=== PATIENT | male | born 1960 | race Caucasian/White ===

== ENCOUNTER 2018-04-25 04:16 | Observation (INO) ==
[2018-04-25] MEDS ORDERED: Ipratropium/Albuterol Neb 3 ML IH ONE (04:23)
--- NOTE | 2018-04-25 04:30 | Emergency Department Note ---
Disposition Clinical Impression: Acute exacerbation of chronic obstructive airways disease Disposition: Admitted As Inpatient Condition: Good Referrals: Mary Lou Rojo CNP [Primary Care Provider] - Forms: ED Satisfaction Letter General Adult HPI - General Chief complaint: ED Shortness of Breath/Dyspnea Stated complaint: SOB Time Seen by Provider: 04/25/18 04:17 Source: patient, family, EMS Mode of arrival: EMS Limitations: no limitations Nursing Notes Reviewed: Yes Vital Signs Reviewed: Yes - History of Present Illness HPI Narrative: 57-year-old male with significant past medical history of hypertension and COPD presenting to the emergency department chief complaint of shortness of breath. According to patient and son-in-law at bedside throughout the day patient has had increased shortness of breath but this evening it got acutely worse. Patient is supposed be wearing 2 L of oxygen at night but is not able to [place]. Patient had severe shortness of breath and audible wheezing so son-in-law called EMS. When EMS arrived oxygen saturation was in the mid 70s. They placed him on oxygen and provided him with a nebulizer treatment and Solu-Medrol. After that oxygen saturation remained in the mid 90s. Patient denies any chest pain, dizziness or headache. Denies any recent fevers. Pain Scale: 0 - Related Data Allergies Allergy/AdvReac Type Severity Reaction Status Date / Time No Known Allergies Allergy Verified 04/25/18 04:24 All systems ED: reviewed and negative except as stated. Constitutional: Denies: fever, chills Eyes: Reports: as per HPI ENT ED: Reports: as per HPI Cardiovascular: Reports: dyspnea on exertion. Denies: palpitations Respiratory: Reports: cough, dyspnea, wheezes Gastrointestinal: Denies: abdominal pain, nausea, vomiting Genitourinary: Reports: as per HPI Musculoskeletal: Reports: as per HPI Integumentary: Reports: as per HPI Neurological: Denies: weakness, numbness, paresthesias Psychiatric: Reports: as per HPI Endocrine: Reports: as per HPI Hematological/Lymphatic: Reports: as per HPI Allergic/Immunologic: Reports: as per HPI Past Medical History - Past Medical History Attestation: Yes The following information was validated with the patient. Medical history: Reports: COPD, myocardial infarction - Social History Smoking Status: Current every day smoker Alcohol use: Reports: rarely Drug use: Reports: none Physical Exam - General Limitations: no limitations General appearance: alert, in distress (Moderate respiratory) - Head Head exam: atraumatic, normocephalic, normal inspection - Eye Eye exam: Present: normal appearance. Absent: scleral icterus, conjunctival injection - ENT ENT exam: mucous membranes dry - Neck Neck exam: Present: normal inspection, full ROM. Absent: tenderness, meningismus - Chest Chest inspection: Present: normal inspection, symmetric chest wall rise. Absent : tenderness, rash - Respiratory Respiratory exam: Present: other (Diffuse inspiratory and expiratory wheezing, decreased breath sounds throughout) - Cardiovascular Cardiovascular exam: Present: normal rhythm, tachycardia, normal heart sounds - Abdominal Exam Abdominal exam: Present: soft, Non-Tender. Absent: distention, guarding, rebound - Extremities Exam Extremities exam: Present: normal inspection, full ROM - Neurological Exam Neurological exam: Present: alert, oriented X3 - Psychiatric Psychiatric exam: Present: normal affect, normal mood - Skin Skin exam: Present: warm, intact Course Course Narrative: 57-year-old male presenting with shortness of breath. History of COPD. In the room audible wheezing can be heard. Oxygen saturation stable at 96% on nasal cannula. We will obtain basic laboratory analysis, chest x-ray and provide him with 3 [id number] DuoNeb's. Patient already received Solu-Medrol by EMS. Patient is alert and oriented 3 in the room. Mildly tachycardic in the low 100s but otherwise vital signs stable. Disposition will be admission the pending results. Patient agrees with this plan. - Reevaluation(s) Reevaluation #1: Patient's laboratory analysis benign. Chest x-ray within normal limits. Due to patient's severe hypoxia before arrival we will plan to admit the patient for COPD exacerbation. Patient has received multiple DuoNebs along with steroids per EMS. I spoke with the hospitalist injection machine operator Dr. Johnson who agrees to accept the patient at this time. Patient is alert and oriented 3 in the room with stable vital signs. Patient agrees with this plan. Vital Signs Temperature 98.0 F 04/25/18 04:21 Pulse Rate 113 04/25/18 04:21 Respiratory Rate 24 04/25/18 04:21 Blood Pressure 163/121 04/25/18 04:21 O2 Sat by Pulse Oximetry 96 04/25/18 04:21 Temperature 98.0 F 04/25/18 04:21 Pulse Rate 97 04/25/18 05:19 Respiratory Rate 20 04/25/18 05:19 Blood Pressure 130/114 04/25/18 05:19 O2 Sat by Pulse Oximetry 100 04/25/18 05:19 Oxygen Delivery Oxygen Delivery Aerosol Mask Medical Decision Making - Lab Data Result diagrams: 04/25/18 04:23 04/25/18 04:23 Lab Results 04/25/18 04/25/18 04/25/18 Range/Units 04:23 04:23 04:23 WBC 9.4 (4.3-11.1) K/mcL RBC 4.35 (4.19-5.50) M/mcL Hgb 13.9 (12.9-16.9) g/dL Hct 41.7 (37.5-50.1) % MCV 95.9 (83.0-100.0) fL MCH 32.0 (28.0-33.3) pg MCHC 33.3 (31.6-35.5) g/dL RDW 13.9 (11.5-14.5) % Plt Count 210 (140-400) K/mcL MPV 9.6 (9.4-12.4) fL Immature Gran % 0.3 (0-4) % Seg Neutrophils % 70.2 % Lymphocytes % 22.2 % Monocytes % 5.5 % Eosinophils % 1.4 % Basophils % 0.4 % Neutrophils # 6.6 (1.6-8.9) K/mcL Lymphocytes # 2.1 (0.6-4.6) K/mcL Monocytes # 0.5 (0.0-1.3) K/mcL Eosinophils # 0.1 (0.0-0.6) K/mcL Basophils # 0.0 (0.0-0.2) K/mcL Sodium 142 (136-145) mEq/L Potassium 3.9 (3.5-5.1) mEq/L Chloride 108 H (98-107) mEq/L Carbon Dioxide 29 (23-29) mEq/L BUN 14 (6-20) mg/dL Creatinine 0.67 L (0.70-1.30) mg/dL Est GFR ( Amer) > 60 (> 60) Est GFR (Non-Af Amer) > 60 (> 60) BUN/Creatinine Ratio 21 (6-26) Glucose 124 H (70-105) mg/dL Calculated Osmolality 296 (280-300) Calcium 8.7 (8.6-10.3) mg/dL Troponin I < 0.03 (< 0.04) ng/mL B-Natriuretic Peptide 39 (Less than 100) pg/mL - EKG Data EKG #1 EKG attestation: Yes I reviewed and interpreted this EKG. EKG results narrative: Sinus rhythm. 91 bpm. UT interval 138, QRS 88, QTC 426. No signs of acute ST segment elevation or ischemia
--- NOTE | 2018-04-25 05:27 | Emergency Department Note ---
Disposition Clinical Impression: Acute exacerbation of chronic obstructive airways disease Disposition: Admitted As Inpatient Condition: Good Referrals: Mary Lou Rojo CNP [Primary Care Provider] - Forms: ED Satisfaction Letter General Adult HPI - General Chief complaint: ED Shortness of Breath/Dyspnea Stated complaint: SOB Time Seen by Provider: 04/25/18 04:17 Source: patient, family, EMS Mode of arrival: EMS Limitations: no limitations Nursing Notes Reviewed: Yes Vital Signs Reviewed: Yes - History of Present Illness Pain Scale: 0 - Related Data Allergies Allergy/AdvReac Type Severity Reaction Status Date / Time No Known Allergies Allergy Verified 04/25/18 04:24 Constitutional: Denies: fever, chills Eyes: Reports: as per HPI ENT ED: Reports: as per HPI Cardiovascular: Reports: dyspnea on exertion. Denies: palpitations Respiratory: Reports: cough, dyspnea, wheezes Gastrointestinal: Denies: abdominal pain, nausea, vomiting Genitourinary: Reports: as per HPI Musculoskeletal: Reports: as per HPI Integumentary: Reports: as per HPI Neurological: Denies: weakness, numbness, paresthesias Psychiatric: Reports: as per HPI Endocrine: Reports: as per HPI Hematological/Lymphatic: Reports: as per HPI Allergic/Immunologic: Reports: as per HPI Past Medical History - Past Medical History Medical history: Reports: COPD, myocardial infarction - Social History Smoking Status: Current every day smoker Alcohol use: Reports: rarely Drug use: Reports: none Physical Exam - General Limitations: no limitations General appearance: alert, in distress (Moderate respiratory) Course Vital Signs Temperature 98.0 F 04/25/18 04:21 Pulse Rate 113 04/25/18 04:21 Respiratory Rate 24 04/25/18 04:21 Blood Pressure 163/121 04/25/18 04:21 O2 Sat by Pulse Oximetry 96 04/25/18 04:21 Temperature 98.0 F 04/25/18 04:21 Pulse Rate 97 04/25/18 05:19 Respiratory Rate 20 04/25/18 05:19 Blood Pressure 130/114 04/25/18 05:19 O2 Sat by Pulse Oximetry 100 04/25/18 05:19 Oxygen Delivery Oxygen Delivery Aerosol Mask Medical Decision Making - Lab Data Lab results reviewed: Yes I reviewed the patient's lab results. Result diagrams: 04/25/18 04:23 04/25/18 04:23 Lab Results 04/25/18 04/25/18 04/25/18 Range/Units 04:23 04:23 04:23 WBC 9.4 (4.3-11.1) K/mcL RBC 4.35 (4.19-5.50) M/mcL Hgb 13.9 (12.9-16.9) g/dL Hct 41.7 (37.5-50.1) % MCV 95.9 (83.0-100.0) fL MCH 32.0 (28.0-33.3) pg MCHC 33.3 (31.6-35.5) g/dL RDW 13.9 (11.5-14.5) % Plt Count 210 (140-400) K/mcL MPV 9.6 (9.4-12.4) fL Immature Gran % 0.3 (0-4) % Seg Neutrophils % 70.2 % Lymphocytes % 22.2 % Monocytes % 5.5 % Eosinophils % 1.4 % Basophils % 0.4 % Neutrophils # 6.6 (1.6-8.9) K/mcL Lymphocytes # 2.1 (0.6-4.6) K/mcL Monocytes # 0.5 (0.0-1.3) K/mcL Eosinophils # 0.1 (0.0-0.6) K/mcL Basophils # 0.0 (0.0-0.2) K/mcL Sodium 142 (136-145) mEq/L Potassium 3.9 (3.5-5.1) mEq/L Chloride 108 H (98-107) mEq/L Carbon Dioxide 29 (23-29) mEq/L BUN 14 (6-20) mg/dL Creatinine 0.67 L (0.70-1.30) mg/dL Est GFR ( Amer) > 60 (> 60) Est GFR (Non-Af Amer) > 60 (> 60) BUN/Creatinine Ratio 21 (6-26) Glucose 124 H (70-105) mg/dL Calculated Osmolality 296 (280-300) Calcium 8.7 (8.6-10.3) mg/dL Troponin I < 0.03 (< 0.04) ng/mL B-Natriuretic Peptide 39 (Less than 100) pg/mL - Radiology Data Radiology results reviewed: Yes I reviewed the patient's radiology results. Chest X-Ray 04/25/18 04:23 IMPRESSION: No acute process. COPD D/ / Fab Hill MD / Fab Hill MD Interpreting Provider: Fab Hill MD Attestation Statement - Attestation Attestation: I, Armando Arreaga MD, personally evaluated this patient and discussed their management with the resident physician. I reviewed the resident's note and agree with the documented findings, medical decision making, and plan of care. 57-year-old male with history of COPD presents to the emergency department by EMS with a complaint of increased shortness of breath and wheezing. Patient has been staying at the [facility] in a pop-up camper. He normally uses oxygen at night at home but [place] had [place]. He reports that about 3 AM yesterday morning he had an episode of wheezing and difficulty breathing which gradually resolved and he did better throughout the day but then tonight again about 3 AM he woke up with severe wheezing and difficulty breathing which was worse than the episode 24 hours ago. He complains of increased cough with white sputum with occasional brownish tint. No fever. No chest pain. EMS reports that on their arrival the patient's oxygen saturation was in the mid 70s. He received IV Solu-Medrol and albuterol nebulizer treatment in route to the hospital with significant improvement. On arrival here his oxygen saturation is in the mid to upper 90s on oxygen by nasal cannula. On examination patient is a thin cachectic male in mild respiratory distress. He is alert and oriented 3. There is no cyanosis or diaphoresis. He is moderately tachypneic. Breath sounds are markedly decreased bilaterally with a few scattered inspiratory and expiratory wheezes bilaterally. Heart regular rate and rhythm. Abdomen soft and nontender with normal bowel sounds. No pedal edema. Chest x-ray shows COPD with no acute abnormality. EKG shows a normal sinus rhythm with ventricular rate of 91. No acute ST segment elevation or depression. No arrhythmia or ectopy. Labs reviewed. The hospitalist, Dr. Johnson, was consulted and accepted admission of the patient.
[2018-04-25 05:32] LABS: Basophils % 0.4 %; Eosinophils # 0.1 K/mcL (0.0-0.6); Eosinophils % 1.4 %; Hematocrit 41.7 % (37.5-50.1); Hemoglobin 13.9 g/dL (12.9-16.9); Immature Granulocytes % 0.3 % (0-4); Lymphocytes # 2.1 K/mcL (0.6-4.6); Lymphocytes % 22.2 %; Mean Corpuscular HGB Conc 33.3 g/dL (31.6-35.5); Mean Corpuscular Volume 95.9 fL (83.0-100.0); Mean Platelet Volume 9.6 fL (9.4-12.4); Monocytes # 0.5 K/mcL (0.0-1.3); Monocytes % 5.5 %; Neutrophils # 6.6 K/mcL (1.6-8.9); Platelet Count 210 K/mcL (140-400); Red Blood Count 4.35 M/mcL (4.19-5.50); Red Cell Distribution Width 13.9 % (11.5-14.5); Segmented Neutrophils % 70.2 %
[2018-04-25 05:51] LABS: Troponin I < 0.03 ng/mL (< 0.04)
[2018-04-25 05:52] LABS: BUN/Creatinine Ratio 21 (6-26); Blood Urea Nitrogen 14 mg/dL (6-20); Calcium 8.7 mg/dL (8.6-10.3); Carbon Dioxide 29 mEq/L (23-29); Chloride 108 mEq/L (98-107); Glucose 124 mg/dL (70-105); Osmolality,Calculated 296 (280-300); Potassium 3.9 mEq/L (3.5-5.1); Sodium 142 mEq/L (136-145); eGFR For Non-African Americans > 60 (> 60)
[2018-04-25] MEDS ORDERED: Nicotine 14 MG PATCH.TD24 TD PRN (07:36)
[2018-04-25] MEDS ORDERED: Ipratropium Neb 0.5 MG NEBULIZER IH SCH (08:00)
--- NOTE | 2018-04-25 08:21 | Internal Med History&Physical ---
Date of Encounter: 04/25/18 Time of Encounter: 08:13 Internal Medicine - H&P: HPI History of present illness: Mr. Hernandez is a 57 year old male with history of chronic respiratory failure on 2L O2 at night, COPD, tobacco abuse, history of [place] presented for acute onset of shortness of breath, wheezing, and dry cough. Patient denies chest pain, sputum, n/v, fevers/chills, edema, orthopnea. COPD triggers include hot/cold weather, and states he has over exposed to hot weather recently, [place]. No sick contacts. He states he is usually on 2 L O2 at night but was not wearing it. He is having more frequent episodes of shortness of breath that usually resolved with albuterol inhaler but now is not. He takes Spiriva and Symibicort. In the ED, a CBC and BMP were unremarkable, a chest x-ray showed no acute process. An EKG was done that had no ST or T wave changes. He was given patient was given IV Solu-Medrol, and Duo Neb inhaler. He currently is in no acute distress and feels relief. Past Med Surg Social Fam HX - Past Medical History Medical history: COPD, kidney stones, myocardial infarction - Past Surgical History Surgical History: ureteral stent Additional surgical history: kidney stent,l heart cath - Social History Smoking Status: Current every day smoker Packs per day: 1 1/2 Smokeless Tobacco Status: No Alcohol use: rarely Drug use: none Internal Medicine - H&P: Meds 3 Allergy/AdvReac Type Severity Reaction Status Date / Time No Known Allergies Allergy Verified 04/25/18 04:24 All Systems PM: A 10-system review of systems was performed and is negative for pertinent findings except as documented above in the HPI. - Constitutional Constitutional: no anorexia, no chills, no excessive sweating, no fatigue, no fever(s), no lethargy, no weakness - EENT Eyes: no change in vision, no discharge, no pain, no photophobia - Cardiovascular Cardiovascular ROS IM: no chest pain, no diaphoresis, no lightheadedness, no palpitations, no syncope - Respiratory Respiratory: cough (dry cough, one episode), dyspnea, wheezing - Gastrointestinal Gastrointestinal: no abdominal pain, no diarrhea, no hematemesis, no hematochezia, no melena, no nausea, no vomiting - Musculoskeletal Musculoskeletal ROS IM: no numbness, no tingling - Integumentary Integumentary IM: no rash, no unusual bruising - Neurological Neurological ROS: no confusion, no convulsions, no focal weakness, no numbness, no tingling, no tremor(s) - Constitutional Vitals: Temp Pulse Resp BP Pulse Ox 98.2 F 89 19 124/74 95 04/25/18 06:47 04/25/18 06:47 04/25/18 06:47 04/25/18 06:47 04/25/18 06:47 General appearance: Present: A&O X 3 Exam: NAD - Head Head exam: Present: atraumatic, normocephalic - Eye Eye exam: Present: PERRL, conjuntiva pink, sclera anicteric Pupils: Present: PERRL - Neck Neck exam general surgery: Present: supple, trachea midline. Absent: lymphadenopathy - Respiratory Respiratory exam: Present: decreased breath sounds. Absent: accessory muscle use, rales, rhonchi, wheezes - Cardiovascular Cardiovascular exam: Present: RRR, +S1, +S2. Absent: diastolic murmur, gallop, rubs, systolic murmur - GI/Abdominal GI/Abdominal exam: Present: normal bowel sounds, soft, no peritoneal signs. Absent: distended, tenderness - Extremities Exam Extremities exam: Present: warm, radial pulses palpable and symmetrical. Absent : calf tenderness, cyanotic, pedal edema - Neurological Exam Neurological exam: Present: CN II-XII intact, oriented X3, no focal deficits. Absent: pronater drift, facial droop, speech deficit - Skin Skin exam: Present: dry, intact Internal Med - H&P Results - Labs CBC & Chem 7: 04/25/18 04:23 04/25/18 04:23 - Assessment and plan (1) Acute exacerbation of chronic obstructive airways disease Current Visit: Yes Status: Acute Assessment and plan: Patient has exposure to hot and humid weather triggering COPD. Also has not been using home O2 as he usually does. Once resumed on O2 and given breathing treaments with IV steroids, breathing improved. Now currently saturating 100 on room air. Does not appear infection related, not having fevers, leukocytosis or any sputum production. Continue Solu Medrol and Duo Nebs scheduled and prn. Resume home medications Spiriva and Symbicort. (2) History of [place] (myocardial infarction) Current Visit: Yes Status: Acute Assessment and plan: resume home medications. (3) Tobacco abuse Current Visit: Yes Status: Acute Assessment and plan: Discussed with patient that tobacco is main contributor to COPD and also exacerbation. He states he does not want to smoke anymore. He is okay with starting nicotine patch. (4) DVT prophylaxis Current Visit: Yes Status: Acute Assessment and plan: Heparin SQ - Time Spent With Patient Total time spent is greater than 50% in coordination of care (as documented) at patient's floor/unit and/or counseling patient:
[2018-04-25] MEDS ORDERED: Nitroglycerin 0.4 MG TAB.SUBL SL PRN (08:49)
[2018-04-25] MEDS: Nicotine 21 MG PATCH.TD24 TD SCH (10:25)
[2018-04-25] MEDS: Baclofen 10 MG TABLET PO SCH ×2 (10:25→22:31)
[2018-04-25] MEDS: Isosorbide MONOnitrate (24 HR) 60 MG TAB.ER.24H PO SCH (10:26)
[2018-04-25] MEDS: Primidone 50 MG TABLET PO SCH ×2 (10:26→22:33)
[2018-04-25] MEDS: Metoprolol XL (24 HR) Succ 25 MG TAB.ER.24H PO SCH (10:26)
[2018-04-25] MEDS: Aspirin Enteric Coated 81 MG Tablet PO SCH (10:26)
[2018-04-25] MEDS: MethylPREDNISolone 40 MG/ML VIAL IVP SCH ×2 (10:27→18:24)
[2018-04-25] MEDS: Budesonide/Formoterol 160/4.5 1 PUFF INH IH SCH ×2 (12:00→19:47)
[2018-04-25] MEDS: Tiotropium 18 MCG inhalation IH SCH (12:01)
[2018-04-25] MEDS: *HR* Heparin 5,000 UNIT/ML VIAL SQ SCH (18:23)
[2018-04-25] MEDS ORDERED: NON-FORMULARY MEDICATION 1 EACH EACH (Oxygen [Oxygen] 2 L) NS SCH (21:00)
[2018-04-26] MEDS: MethylPREDNISolone 40 MG/ML VIAL IVP SCH ×2 (01:10→05:59)
[2018-04-26 05:46] LABS: Hematocrit 40.7 % (37.5-50.1); Hemoglobin 13.9 g/dL (12.9-16.9); Mean Corpuscular HGB Conc 34.2 g/dL (31.6-35.5); Mean Corpuscular Hemoglobin 32.6 pg (28.0-33.3); Mean Corpuscular Volume 95.5 fL (83.0-100.0); Mean Platelet Volume 9.8 fL (9.4-12.4); Platelet Count 222 K/mcL (140-400); Red Blood Count 4.26 M/mcL (4.19-5.50); Red Cell Distribution Width 13.9 % (11.5-14.5)
[2018-04-26] MEDS ORDERED: *HR* Heparin 5,000 UNIT/ML VIAL ONE (05:49)
[2018-04-26 06:48] VITALS: BP 124/75
[2018-04-26] MEDS ORDERED: Tiotropium 18 MCG inhalation IH SCH (07:00)
[2018-04-26] MEDS: *HR* Heparin 5,000 UNIT/ML VIAL SQ SCH (07:49)
[2018-04-26] MEDS: Primidone 50 MG TABLET PO SCH (07:54)
[2018-04-26] MEDS: Nicotine 21 MG PATCH.TD24 TD SCH (07:54)
[2018-04-26] MEDS: Aspirin Enteric Coated 81 MG Tablet PO SCH (07:54)
[2018-04-26] MEDS: Isosorbide MONOnitrate (24 HR) 60 MG TAB.ER.24H PO SCH (07:55)
[2018-04-26] MEDS: Metoprolol XL (24 HR) Succ 25 MG TAB.ER.24H PO SCH (07:55)
[2018-04-26] MEDS: Baclofen 10 MG TABLET PO SCH (07:55)
[2018-04-26] MEDS: Budesonide/Formoterol 160/4.5 1 PUFF INH IH SCH (08:57)
[2018-04-26] MEDS: Tiotropium 18 MCG inhalation IH SCH (08:58)
[2018-04-26] MEDS ORDERED: Roflumilast [Daliresp] 500 MCG PO SCH (09:00)
--- NOTE | 2018-04-26 09:46 | Discharge Summary ---
Date of Encounter: 04/26/18 Time of Encounter: 09:36 - Discharge Diagnosis (1) Acute exacerbation of chronic obstructive airways disease Priority: Primary Status: Resolved (2) History of [place] (myocardial infarction) Priority: Secondary Status: Chronic (3) Tobacco abuse Priority: Secondary Status: Chronic (4) DVT prophylaxis Priority: Secondary Status: Acute Hospital course: Mr. Hernandez is a 57 year old male Discharge discussed with: patient Time spent discussing smoking cessation with patient: 3 to 10 minutes - Time Spent with Patient Total time spent providing and/or coordinating discharge services: Mr. Hernandez is a 57 year old male with history of chronic respiratory failure on 2L O2 at night, COPD, tobacco abuse, history of [place] presented for acute onset of shortness of breath, wheezing, and dry cough. Patient denies chest pain, sputum, n/v, fevers/chills, edema, orthopnea. COPD triggers include hot/cold weather, and states he has over exposed to hot weather recently, [place]. No sick contacts. He states he is usually on 2 L O2 at night but was not wearing it. He is having more frequent episodes of shortness of breath that usually resolved with albuterol inhaler but now is not. He takes Spiriva and Symibicort. In the ED, a CBC and BMP were unremarkable, a chest x-ray showed no acute process. An EKG was done that had no ST or T wave changes. He was given patient was given IV Solu-Medrol, and Duo Neb inhaler. He currently is in no acute distress and feels relief. Patient received IV steroids, CXR was negative for infection, ON improved, he is on ,2 L NC, sat 98%. patient is discharged on stable condition. He has no wheezing, but re duced BS. discharged on Augmentin and taper prednisone. smoking cessation discussed at discharge Less than 30 minutes - Discharge Medications Prescriptions: Amoxicillin/Clavulanate [Augmentin] 875 mg PO BIDWM 7 Days #14 tablet predniSONE [PredniSONE] 10 mg PO DAILY 12 Days #30 tablet Home Medications: Albuterol Neb [Proventil Neb] 2.5 mg IH Q6H PRN 04/25/18 [History] Albuterol Sulfate [Proair Hfa] 1 puff IH Q4H PRN 04/25/18 [History] Aspirin [Lo-Dose Aspirin EC] 81 mg PO DAILY 04/25/18 [History] Atorvastatin Calcium [Lipitor] 20 mg PO HS 04/25/18 [History] Baclofen 20 mg PO BID 04/25/18 [History] Budesonide/Formoterol 160/4.5 [Symbicort 160/4.5] 2 puff IH BIDR 04/25/18 [ History] Cilostazol 50 mg PO BID 04/25/18 [History] Escitalopram [Lexapro] 10 mg PO DAILY 04/25/18 [History] GuaiFENesin ER [Mucinex] 600 mg PO BID 04/25/18 [History] Isosorbide MONOnitrate [Isosorbide Mononitrate ER] 120 mg PO DAILY 04/25/18 [ History] Lisinopril 2.5 mg PO DAILY 04/25/18 [History] Metoprolol Succinate [Toprol Xl] 25 mg PO DAILY 04/25/18 [History] Nicotine Patch [Nicoderm] 21 mg TD DAILY 04/25/18 [History] Nitroglycerin [Nitrostat] 0.4 mg SL Q5M PRN 04/25/18 [History] Omeprazole [PriLOSEC] 40 mg PO DAILY 04/25/18 [History] Oxygen 2 l NS HS 04/25/18 [History] Primidone [Mysoline] 50 mg PO BID 04/25/18 [History] Roflumilast [Daliresp] 500 mcg PO DAILY 04/25/18 [History] Tamsulosin [Flomax] 0.4 mg PO DAILY 04/25/18 [History] Tiotropium [Spiriva] 18 mcg IH 0700 04/25/18 [History] hydrOXYzine HCl [Hydroxyzine HCl] 25 mg PO HS PRN 04/25/18 [History] Amoxicillin/Clavulanate [Augmentin] 875 mg PO BIDWM 7 Days #14 tablet 04/26/18 [ Rx] predniSONE [PredniSONE] 10 mg PO DAILY 12 Days #30 tablet 04/26/18 [Rx] Allergies/Adverse Reactions: 3 Allergy/AdvReac Type Severity Reaction Status Date / Time No Known Allergies Allergy Verified 04/25/18 10:21 Date of admission: 04/25/18 06:11 Primary care physician: Mary Lou Rojo CNP Consults: 04/25/18 07:05 Consult to Nutrition [CONS] Routine Comment: Consulting Provider: NUTRITION Reason for Dietary Consult: MST Score Consult to [employer] [CONS] Routine Reason for SW Consult: HAS HOME O2-MARLENI 04/25/18 07:36 Consult to Nurse Navigator [CONS] Routine Comment: - Constitutional Vitals: Temp Pulse Resp BP Pulse Ox 97.4 F L 64 18 124/75 98 04/26/18 06:47 04/26/18 06:47 04/26/18 09:00 04/26/18 06:47 04/26/18 09:00 General appearance: Present: A&O X 3 Exam: CONSTITUTIONAL: patient appears as an age appropriate female in no acute distress. EYES Clear sclerae, bilateral pupils are equal, reactive to light. EMOI. RESPIRATORY: No accessory muscle use, bilateral reduced BS to auscultation, no wheezing, no crackles/rales. CARDIOVASCULAR: Regular heart rate, normal S1 and S2, no murmurs GASTROINTESTINAL: bowel sounds present, soft, no tenderness. MUSCULOSKELETAL: Joints in normal range of motion, no clubbing, no edema, no cyanosis. Bilateral peripheral pulses 2+. NEUROLOGIC: CN II to XII are grossly intact, no focal neurological deficit. - Patient Status Disposition: Home, Self-Care Condition: Good Functional capacity at discharge: independent ambulation Overall status at discharge: patient is back to baseline - Discharge Instructions Follow Up With: Mary Lou Rojo CNP [Primary Care Provider] - - Diet and Activity Diet: advance to your usual diet
--- NOTE | 2018-04-27 16:08 | Electrocardiograph Report ---
[place] [id number] Test Date: 2018-04-25 Pat Name: Nik Hernandez Department: EXAM2 Room: 2A23 Gender: M Electro Optical Engineer: : [id number] Requested By: Eli Perez Order Number: [id number] Reading MD: Aravind Vera Measurements Intervals [place] Rate: 91 P: 88 TX: 138 QRS: 96 QRSD: 88 T: 72 QT: 346 QTc: 426 Interpretive Statements Sinus rhythm Borderline right axis deviation Electronically Signed On 04-27-2018 16:06:27 EDT by Aravind Vera
== END 2018-04-26 10:35 | disposition home or self-care (01) ==
LOC: EMEROOARM 04:16 → 2ANU 04:16 → SUATTDRO 06:11 → 2ANU 06:24
PROVIDERS: ADMIT Family Medicine; ATTEND Hospitalist

== ENCOUNTER 2018-09-29 11:57 | Inpatient (IN) ==
[2018-09-29] MEDS ORDERED: Naloxone 0.4 MG/ML INJ IVP PRN (18:39)
[2018-09-29] MEDS ORDERED: Nitroglycerin 0.4 MG TAB.SUBL SL PRN (18:43)
[2018-09-29] MEDS ORDERED: Albuterol 2.5 MG/3 ML NEBULIZER IH PRN (18:48)
--- NOTE | 2018-09-29 18:58 | Internal Med History&Physical ---
Date of Encounter: 09/29/18 Time of Encounter: 18:10 Internal Medicine - H&P: HPI Chief complaint: Shortness of breath Admitted From: Hospital to Hospital Transfer Plans for Post Hospital Care: Home History of present illness: Mr. Hernandez is a 58 year old male with hx of COPD on home oxygen transferred from [facility] with respiratory failure. He is currently on bipap. Mr Hernandez has hx of COPD and smoking. He presented to [facility] on 09/28/18 with progressive dyspnea and cough productive of purulent sputum. No fever or chills. Did have flu shot this year. He also had been seen in the ED there on 09/27 and discharged home on steroids. He was admitted to [facility] on 09/28 with exac COPD. He was treated with nebulizers, oxygen, steroids. This AM he became more dyspneic. He stated he had 4 episodes of worsening dyspnea and was placed on bipap. Due the worsening of his symptoms and concern for respiratory failure, he was transferred to [place]. At this time he is comfortable on bipap. He is able to speak and denies CP. Denies abd pain or diarrhea. Past Med Surg Social Fam HX - Past Medical History Source: patient, old records reviewed, obtained from family Medical history: COPD, coronary artery disease, GERD, hypertension, kidney stones, myocardial infarction Additional medical history: BPH, Chronic hypoxic resp failure Psychiatric history: no psych history - Past Surgical History Surgical History: ureteral stent Additional surgical history: kidney stent,l heart cath - Social History Smoking Status: Current every day smoker Smokeless Tobacco Status: No Alcohol use: rarely Drug use: none - Additional Family History Additional family history: Pt states there is hx of HTN, CAD and COPD in family. Internal Medicine - H&P: Meds Albuterol Neb [Proventil Neb] 2.5 mg IH Q6H PRN 04/25/18 [History] Albuterol Sulfate [Proair Hfa] 1 puff IH Q4H PRN 04/25/18 [History] Aspirin [Lo-Dose Aspirin EC] 81 mg PO DAILY 04/25/18 [History] Atorvastatin Calcium [Lipitor] 20 mg PO HS 04/25/18 [History] Baclofen 20 mg PO BID 04/25/18 [History] Budesonide/Formoterol 160/4.5 [Symbicort 160/4.5] 2 puff IH BIDR 04/25/18 [History] Cilostazol 50 mg PO BID 04/25/18 [History] Escitalopram [Lexapro] 10 mg PO DAILY 04/25/18 [History] GuaiFENesin ER [Mucinex] 600 mg PO BID 04/25/18 [History] Isosorbide MONOnitrate [Isosorbide Mononitrate ER] 120 mg PO DAILY 04/25/18 [History] Lisinopril 2.5 mg PO DAILY 04/25/18 [History] Metoprolol Succinate [Toprol Xl] 25 mg PO DAILY 04/25/18 [History] Nicotine Patch [Nicoderm] 21 mg TD DAILY 04/25/18 [History] Nitroglycerin [Nitrostat] 0.4 mg SL Q5M PRN 04/25/18 [History] Omeprazole [PriLOSEC] 40 mg PO DAILY 04/25/18 [History] Oxygen 2 l NS HS 04/25/18 [History] Primidone [Mysoline] 50 mg PO BID 04/25/18 [History] Roflumilast [Daliresp] 500 mcg PO DAILY 04/25/18 [History] Tamsulosin [Flomax] 0.4 mg PO DAILY 04/25/18 [History] Tiotropium [Spiriva] 18 mcg IH 0700 04/25/18 [History] hydrOXYzine HCl [Hydroxyzine HCl] 25 mg PO HS PRN 04/25/18 [History] Amoxicillin/Clavulanate [Augmentin] 875 mg PO BIDWM 7 Days #14 tablet 04/26/18 [Rx] predniSONE [PredniSONE] 10 mg PO DAILY 12 Days #30 tablet 04/26/18 [Rx] Allergy/AdvReac Type Severity Reaction Status Date / Time No Known Allergies Allergy Verified 04/25/18 10:21 All Systems PM: A 10-system review of systems was performed and is negative for pertinent f indings except as documented above in the HPI. - Constitutional Constitutional: fatigue, malaise - EENT Eyes: no change in vision, no pain Ears: no decreased hearing Nose, mouth and throat: dry mouth, no mouth pain - Cardiovascular Cardiovascular ROS IM: dyspnea, dyspnea on exertion, no chest pain, no edema, no lightheadedness - Respiratory Respiratory: cough, dyspnea, dyspnea on exertion, wheezing, chest congestion, excessive phlegm production - Gastrointestinal Gastrointestinal: no abdominal pain, no melena - Genitourinary Genitourinary ROS male: no dysuria, no nocturia - Musculoskeletal Musculoskeletal ROS IM: myalgias, no stiffness - Neurological Neurological ROS: no confusion, no numbness - Endocrine Endocrine IM: fatigue, no excessive sweating - Hematologic/Lymphatic Hematologic/Lymphatic: no easy bleeding - Allergic/Immunologic Allergic/Immunologic: no itchy eyes, no wheezing - Constitutional General appearance: Present: A&O X 3 (Currently on bipap) Exam: See below - Head Head exam: Present: normocephalic - Eye Eye exam: Present: EOMI, conjuntiva pink - ENT ENT exam: Present: mucous membranes dry - Neck Neck exam general surgery: Present: normal inspection, supple. Absent: thyromegaly - Respiratory Respiratory exam: Present: decreased breath sounds, rhonchi, wheezes - Cardiovascular Cardiovascular exam: Present: RRR. Absent: tachycardia - GI/Abdominal GI/Abdominal exam: Present: normal bowel sounds, soft. Absent: mass, tenderness - Extremities Exam Extremities exam: Present: warm. Absent: tenderness - Neurological Exam Neurological exam: Present: alert, oriented X3, no focal deficits - Skin Skin exam: Present: dry, warm. Absent: rash - Assessment and plan (1) Respiratory failure Status: Acute Assessment and plan: Pt has hx of chronic oxygen dependent respiratory failure. He has had significant worsening requiring admission to [facility]. Symptoms progressed there and he developed hypercarbic resp failure as well. He was started on bipap and transferred here. Currently he is comfortable on bipap. Plan Admit. IV abx, steroids, oxygen, bipap, mucolytic, aerosols Consult pulm in AM (pt was told that he was being sent to [place] for pulm eval as well - sees Dr. Wilkins as outpatient. Check D dimer, RIP. Pt is high risk for worsening respiratory failure. He is full code. Qualifiers: Chronicity: acute on chronic Respiratory failure complication: hypoxia and hypercapnia Qualified Code(s): J96.21 - Acute and chronic respiratory failure with hypoxia; J96.22 - Acute and chronic respiratory failure with hypercapnia (2) Acute exacerbation of chronic obstructive airways disease Status: Acute Assessment and plan: Pt with exac COPD. Current management as above. (3) CAD (coronary artery disease) Status: Chronic Assessment and plan: Pt with hx of CAD and [place]. Continue home medications. No acute issues at this time. Qualifiers: Coronary Disease-Associated Artery/Lesion type: [place] artery [place] vs. transplanted heart: [place] heart Associated angina: without angina Qualified Code(s): I25.10 - Atherosclerotic heart disease of [place] coronary artery without angina pectoris (4) HTN (hypertension) Status: Chronic Assessment and plan: Continue home medications. Qualifiers: Hypertension type: essential hypertension Qualified Code(s): I10 - Essential (primary) hypertension (5) GERD (gastroesophageal reflux disease) Status: Chronic Assessment and plan: Pt takes PPI at home. Will continue omeprazole here. Qualifiers: Esophagitis presence: esophagitis presence not specified Qualified Code(s): K21.9 - Gastro-esophageal reflux disease without esophagitis (6) Hyperlipemia Status: Chronic Assessment and plan: Pt with dyslipidemia and hx CAD/[place]. Continue Atorvastatin Qualifiers: Hyperlipidemia type: mixed hyperlipidemia Qualified Code(s): E78.2 - Mixed hyperlipidemia (7) BPH (benign prostatic hyperplasia) Status: Chronic Assessment and plan: Chronic issue. Continue Flomax Qualifiers: Lower urinary tract symptom presence: symptoms absent Qualified Code(s): N40.0 - Benign prostatic hyperplasia without lower urinary tract symptoms (8) Tobacco abuse Status: Chronic Assessment and plan: Documented that patient smokes 2ppd. He is currently wearing a nicotine patch Cessation counselling. - Time Spent With Patient Total time spent is greater than 50% in coordination of care (as documented) at patient's floor/unit and/or counseling patient:
[2018-09-29] MEDS: Nicotine 21 MG PATCH.TD24 TD SCH (21:15)
[2018-09-29] MEDS: Baclofen 10 MG TABLET PO SCH (21:16)
[2018-09-29] MEDS: Azithromycin 500 MG in D5% in Water 250 ML IVPB SCH (21:21)
[2018-09-29] MEDS: Ipratropium/Albuterol Neb 3 ML IH SCH (23:02)
[2018-09-29] MEDS: Budesonide/Formoterol 160/4.5 1 PUFF INH IH SCH (23:02)
[2018-09-29 23:22] LABS: Adenovirus Not Detected (Not Detect); Bordetella Pertussis Not Detected (Not Detect); Chlamydophila pneumoniae Not Detected (Not Detect); Coronavirus 229E Not Detected (Not Detect); Coronavirus HKU1 Not Detected (Not Detect); Coronavirus NL63 Not Detected (Not Detect); Coronavirus OC43 Not Detected (Not Detect); Human Metapneumovirus Not Detected (Not Detect); Human Rhinovirus/Enterovirus DETECTED (Not Detect); Influenza A Subtype 2009 H1 Not Detected (Not Detect); Influenza A Untypeable Not Detected (Not Detect); Influenza B Not Detected (Not Detect); Mycoplasma pneumoniae Not Detected (Not Detect); Parainfluenza Virus 1 Not Detected (Not Detect); Parainfluenza Virus 2 Not Detected (Not Detect); Parainfluenza Virus 3 Not Detected (Not Detect); Parainfluenza Virus 4 Not Detected (Not Detect); Respiratory Syncytial Virus Not Detected (Not Detect)
[2018-09-29] MEDS: MethylPREDNISolone 40 MG/ML VIAL IVP SCH (23:58)
[2018-09-30] MEDS: Ipratropium/Albuterol Neb 3 ML IH SCH ×4 (04:18→22:40)
[2018-09-30 05:22] LABS: Hematocrit 38.9 % (37.5-50.1); Hemoglobin 12.7 g/dL (12.9-16.9); Mean Corpuscular HGB Conc 32.6 g/dL (31.6-35.5); Mean Corpuscular Hemoglobin 31.6 pg (28.0-33.3); Mean Corpuscular Volume 96.8 fL (83.0-100.0); Platelet Count 194 K/mcL (140-400); Red Blood Count 4.02 M/mcL (4.19-5.50); Red Cell Distribution Width 13.1 % (11.5-14.5)
[2018-09-30 05:38] LABS: BUN/Creatinine Ratio 29 (6-26); Blood Urea Nitrogen 15 mg/dL (6-20); Calcium 9.2 mg/dL (8.6-10.3); Carbon Dioxide 32 mEq/L (23-29); Chloride 102 mEq/L (98-107); Glucose 103 mg/dL (70-105); Magnesium 1.9 mg/dL (1.6-2.6); Osmolality,Calculated 287 (280-300); Potassium 3.9 mEq/L (3.5-5.1); Sodium 138 mEq/L (136-145); eGFR For Non-African Americans > 60 (> 60)
[2018-09-30] MEDS: MethylPREDNISolone 40 MG/ML VIAL IVP SCH ×4 (06:05→23:57)
--- NOTE | 2018-09-30 07:18 | Internal Med Progress Note ---
Addendum entered and electronically signed by Vamsi Esqueda DO 09/30/18 14:53: additional assessment, rhinovirus. Positive on PCR. Will treat with supportive care. Respiratory precautions Original Note: <DheerajVamsi - Last Filed: 09/30/18 14:51> Hospitalist Progress Note - Encounter Date of Encounter: 09/30/18 Time of Encounter: 08:50 - Subjective Interval History: Patient seen and examined at bedside this morning. He states that overall he is feeling better with improvement of his respiratory status. He states that he is no longer feeling as short of breath as he did previously. Still does admit to some cough which is nonproductive at this time. Denies any symptoms of fevers, chills, chest pain, shortness of breath, nausea, vomiting. He does follow with a offshore wind operations manager, Dr. Wilkins, whom he most recently saw 1 month ago. He does take daily inhalers and has been compliant with these. No events overnight - Exam Vitals: Temp Pulse Resp BP Pulse Ox 98.8 F 64 19 123/86 99 09/30/18 03:50 09/30/18 03:50 09/30/18 04:18 09/30/18 03:50 09/30/18 04:18 Exam: Gen.: Vitals noted. No acute distress. AAOx3, resting comfortably in bed. BiPAP in place HEENT: PERRL/EOMI, oropharynx clear, Normocephalic, atraumatic, MMM Cardiac: RRR, no murmur, +S1/S2, No BLE edema Pulmonary: Expiratory wheezes most prominent in bases, otherwise clear to auscultation, equal chest expansion, unlabored breathing Abdomen: soft, nontender, BS noted, no guarding, no palpable HSM Skin: warm and dry, no visible lesions. MSK: ROM unassessed, no joint swelling noted, gait no assessed while in bed. Non tender calf or clubbing Neuro: A&Ox3, moves all extremities, no focal deficits Psych: Appropriate mood and behavior, AOx3 - Assessment and Plan (1) Acute and chronic respiratory failure Current Visit: Yes Status: Acute Assessment and Plan: - Evidence of acute on chronic respiratory failure with hypoxic and hypercapnia as noted in [facility] ED - Causative etiology is likely COPD exacerbation secondary to positive rhinovirus - Patient is home oxygen dependent on 2 L - No evidence of leukocytosis or fevers to suggest pneumonia etiology - Clinically improving with current regimen - Respiratory infectious panel positive for rhinovirus - Chest x-ray in [facility] emergency department obtained but unreported results. Will repeat today - Started on Solu-Medrol 40 mg every 6 hours, Mucinex, home Symbicort, azithromycin, bronchodilators - Currently tolerating BiPAP therapy - We will consult pulmonology per patient request, appreciate recommendations Plan - Continue current regimen including steroids, bronchodilators, azithromycin day #2 - increase mucinex - Consult pulm - Continue BiPAP support (2) Acute exacerbation of chronic obstructive airways disease Current Visit: Yes Status: Acute Assessment and Plan: As above for acute on chronic respiratory failure (3) CAD (coronary artery disease) Current Visit: Yes Status: Chronic Assessment and Plan: - No complaints of chest pain - Continue to monitor - Continue home medications (4) HTN (hypertension) Current Visit: Yes Status: Chronic Assessment and Plan: - Currently well-controlled at 123/76 - We will continue current regimen (5) GERD (gastroesophageal reflux disease) Current Visit: Yes Status: Chronic Assessment and Plan: Continue home PPI (6) Hyperlipemia Current Visit: Yes Status: Chronic Assessment and Plan: Continue home medications (7) BPH (benign prostatic hyperplasia) Current Visit: Yes Status: Chronic Assessment and Plan: - Currently well-controlled at home Flomax - We will continue while inpatient (8) Tobacco abuse Current Visit: No Status: Chronic Assessment and Plan: Advise cessation (9) DVT prophylaxis Current Visit: Yes Status: Acute Assessment and Plan: Subcutaneous heparin - Time Spent with Patient Total time spent is greater than 50% in coordination of care (as documented) at patient's floor/unit and/or counseling patient: Internal Medicine: Result - Labs CBC & Chem 7: 09/30/18 04:42 09/30/18 04:42 Labs: Short CBC 09/30/18 Range/Units 04:42 WBC 7.9 (4.3-11.1) K/mcL Hgb 12.7 L (12.9-16.9) g/dL Hct 38.9 (37.5-50.1) % Plt Count 194 (140-400) K/mcL BMP 09/30/18 04:42 Sodium 138 Potassium 3.9 Chloride 102 Carbon Dioxide 32 H BUN 15 Creatinine 0.52 L Glucose 103 Calcium 9.2 - ABG Interpretation ABG results: PT/INR, D-dimer D-Dimer 282 ng/mLFEU (0-500) 09/29/18 19:55 Consult Discharge Plan - Plan Referrals: Mary Lou Rojo CAGE LOADER [Advanced Practice Nurse] - 10/09/18 1:00 pm <Kapil Soto - Last Filed: 09/30/18 17:35> Hospitalist Progress Note - Encounter Date of Encounter: 09/30/18 - Exam Vitals: Temp Pulse Resp BP Pulse Ox 98.1 F 84 24 159/99 100 09/30/18 16:53 09/30/18 16:53 09/30/18 16:59 09/30/18 16:59 09/30/18 16:59 - Assessment and Plan (1) Respiratory failure Current Visit: No Status: Acute (2) Acute exacerbation of chronic obstructive airways disease Current Visit: Yes Status: Acute (3) CAD (coronary artery disease) Current Visit: Yes Status: Chronic (4) HTN (hypertension) Current Visit: Yes Status: Chronic (5) GERD (gastroesophageal reflux disease) Current Visit: Yes Status: Chronic (6) Hyperlipemia Current Visit: Yes Status: Chronic (7) BPH (benign prostatic hyperplasia) Current Visit: Yes Status: Chronic (8) Tobacco abuse Current Visit: No Status: Chronic - Time Spent with Patient Total time spent is greater than 50% in coordination of care (as documented) at patient's floor/unit and/or counseling patient: Internal Medicine: Result - Labs CBC & Chem 7: 09/30/18 04:42 09/30/18 04:42 Labs: Short CBC 09/30/18 Range/Units 04:42 WBC 7.9 (4.3-11.1) K/mcL Hgb 12.7 L (12.9-16.9) g/dL Hct 38.9 (37.5-50.1) % Plt Count 194 (140-400) K/mcL BMP 09/30/18 04:42 Sodium 138 Potassium 3.9 Chloride 102 Carbon Dioxide 32 H BUN 15 Creatinine 0.52 L Glucose 103 Calcium 9.2 - ABG Interpretation ABG results: PT/INR, D-dimer D-Dimer 282 ng/mLFEU (0-500) 09/29/18 19:55 - Impressions Impressions Chest X-Ray 09/30/18 12:31 IMPRESSION: Stable chest with no acute cardiopulmonary process. Severe emphysematous changes again seen in the lungs with prominent bullous disease at the right lung apex. D/ / Yohannes Chaudhary MD / Yohannes Chaudhary MD Interpreting Provider: Yohannes Chaudhary MD - Attending Attestation I examined this patient and my medical decision-making was reviewed with the Resident Physician on 09/30/18. I agree with the documented findings, disposition and treatment plan as described except to the extent set forth below. Mr Hernandez is currently admitted for respiratory failure and COPD exacerbation. He remains moderate to high risk due to potential for worsening clinical status. Mr Hernandez feels somewhat better today. No fever or chills. Still on bipap. Still coughing a lot. Can't seem to bring up sputum. Exam Alert Comfortable on bipap Mucus membranes dry Heart tachy and regular Continues rhonchi bilaterally Abd soft and nontender No edema Moves all extremities Normocephalic I/P 1. Respiratory failure - continues on bipap. Appreciate pulm input. Transfer to telemetry 2. COPD exac - steroids, abx, aerosols, oxygen, mucinex 3. CAD Further diagnoses and plan as above. ___ <Vamsi Esqueda - Last Filed: 09/30/18 14:51> (1) Acute and chronic respiratory failure Qualifiers: Respiratory failure complication: hypoxia and hypercapnia Qualified Code(s): J96.21 - Acute and chronic respiratory failure with hypoxia; J96.22 - Acute and chronic respiratory failure with hypercapnia (3) CAD (coronary artery disease) Qualifiers: Coronary Disease-Associated Artery/Lesion type: [place] artery [place] vs. transplanted heart: [place] heart Associated angina: without angina Qualified Code(s): I25.10 - Atherosclerotic heart disease of [place] coronary artery without angina pectoris (4) HTN (hypertension) Qualifiers: Hypertension type: essential hypertension Qualified Code(s): I10 - Essential (primary) hypertension (5) GERD (gastroesophageal reflux disease) Qualifiers: Esophagitis presence: esophagitis presence not specified Qualified Code(s): K21.9 - Gastro-esophageal reflux disease without esophagitis (6) Hyperlipemia Qualifiers: Hyperlipidemia type: mixed hyperlipidemia Qualified Code(s): E78.2 - Mixed hyperlipidemia (7) BPH (benign prostatic hyperplasia) Qualifiers: Lower urinary tract symptom presence: symptoms absent Qualified Code(s): N40.0 - Benign prostatic hyperplasia without lower urinary tract symptoms <Kapil Soto - Last Filed: 09/30/18 17:35> (1) Respiratory failure Qualifiers: Chronicity: acute on chronic Respiratory failure complication: hypoxia and hypercapnia Qualified Code(s): J96.21 - Acute and chronic respiratory failure with hypoxia; J96.22 - Acute and chronic respiratory failure with hypercapnia (3) CAD (coronary artery disease) Qualifiers: Coronary Disease-Associated Artery/Lesion type: [place] artery [place] vs. transplanted heart: [place] heart Associated angina: without angina Qualified Code(s): I25.10 - Atherosclerotic heart disease of [place] coronary artery without angina pectoris (4) HTN (hypertension) Qualifiers: Hypertension type: essential hypertension Qualified Code(s): I10 - Essential (primary) hypertension (5) GERD (gastroesophageal reflux disease) Qualifiers: Esophagitis presence: esophagitis presence not specified Qualified Code(s): K21.9 - Gastro-esophageal reflux disease without esophagitis (6) Hyperlipemia Qualifiers: Hyperlipidemia type: mixed hyperlipidemia Qualified Code(s): E78.2 - Mixed hyperlipidemia (7) BPH (benign prostatic hyperplasia) Qualifiers: Lower urinary tract symptom presence: symptoms absent Qualified Code(s): N40.0 - Benign prostatic hyperplasia without lower urinary tract symptoms
[2018-09-30] MEDS: Nicotine 21 MG PATCH.TD24 TD SCH (09:03)
[2018-09-30] MEDS: *HR* Heparin 5,000 UNIT/ML VIAL SQ SCH ×4 (09:05→23:59)
[2018-09-30] MEDS: Metoprolol XL (24 HR) Succ 25 MG TAB.ER.24H PO SCH (09:05)
[2018-09-30] MEDS: Baclofen 10 MG TABLET PO SCH ×2 (09:05→20:18)
[2018-09-30] MEDS: Aspirin Enteric Coated 81 MG Tablet PO SCH (09:06)
[2018-09-30] MEDS ORDERED: hydrOXYzine pamoate 25 MG CAPSULE PO PRN (09:53)
[2018-09-30] MEDS: Budesonide/Formoterol 160/4.5 1 PUFF INH IH SCH ×2 (10:15→22:40)
[2018-09-30] MEDS: *HR* OxyCODONE/APAP 5/325 TABLET PO PRN ×2 (11:03→17:39)
[2018-09-30] MEDS: Primidone 50 MG TABLET PO SCH ×2 (11:04→20:18)
--- NOTE | 2018-09-30 11:12 | Pulmonology Consult Note ---
<Yanira Allen - Last Filed: 09/30/18 11:33> Date of Encounter: 09/30/18 Time of Encounter: 11:11 Assessment and Plan (1) Acute and chronic respiratory failure Current Visit: Yes Status: Acute This is a 58-year-old male with past medical history significant for COPD on 2L home oxygen, smoking, CAD, hypertension who presents with progressive dyspnea and productive cough. - 4 different episodes during which he felt SOB at home two days ago - Seen at [facility] ED - s/p breathing treatment, oxygen, prednisone - Revisited [facility] and admitted for COPD exacerbation - Currently tolerating BIPAP; resting comfortably at bedside in no acute di stress; Denies fevers/chills; improving dyspnea; Exam notable for decreased lung sounds and b/l lung bases - Resp Infectious Panel: + Entero/Rhinovirus PLAN: Likely secondary to COPD exacerbation secondary to viral URI; less likely pneumonia given patient is afebrile without leukocytosis - Cont BIPAP PRN/QHS - Cont supplemental O2 as necesssary; titrate to keep O2 sat > 88%; wean as tolerated to baseline - Cont solumedrol 40mg q6 --> wean as tolerated - Cont scheduled home bronchodilators - Follow up CXR, sputum culture - Encourage smoking cessation; Nicotine patch PRN Qualifiers: Respiratory failure complication: hypoxia and hypercapnia Qualified Code(s): J96.21 - Acute and chronic respiratory failure with hypoxia; J96.22 - Acute and chronic respiratory failure with hypercapnia (2) Acute exacerbation of chronic obstructive airways disease Current Visit: Yes Status: Acute Plan as above (3) Tobacco abuse Current Visit: Yes Status: Chronic PLAN: - Encourage Smoking Cessation - Nicotine Patch PRN History of Present Illness Consult date: 09/30/18 Requesting physician: Vamsi Esqueda Reason for consult: COPD Chief complaint: COPD Exacerbation, Dyspnea History of present illness: This is a 58-year-old male with past medical history significant for COPD on home oxygen, smoking, CAD, hypertension who presents with progressive dyspnea and cough productive of purulent sputum. Transfer from [facility]. Patient states that for the past 2-3 days, he has felt short of breath. Has been using his home inhalers increasingly without relief. States he had 4 different episodes of difficulty breathing at home about 2 days ago. Visited [facility] ED, was evaluated, given breathing treatment, and discharged home with PO prednisone. Symptoms did not improve, and patient noted he was requiring increasing amounts of oxygen. Repeat visited [facility] ED yesterday morning, and was admitted with COPD exacerbation. Treated with nebulizers, oxygen, steroids. Continue to have difficulty breathing nasal cannula. Started on BiPAP. Patient currently resting comfortably at bedside, accompanied by , on BiPAP. Tolerating without difficulty. However, during break from BiPAP, patient was continuing to cough and bringing up white colored sputum. Patient was placed back on BiPAP. Otherwise, denies fevers/chills, headache, nasal/sinus co ngestion, chest pain, wheezing, abdominal pain, nausea, vomiting, diarrhea. Currently managed with Solu-Medrol 40 mg every 6 hours, and home bronchodilators. O2 sats appropriate on 5 L via nasal cannula. Resp. Infectious Panel: + Entero/Rhinovirus Pulmonology consulted due to COPD exacerbation likely secondary to viral infection. Past Med Surg Social Fam HX - Past Medical History Attestation: Yes The following information was validated with the patient. Source: patient, old records reviewed Medical history: COPD, coronary artery disease, GERD, hypertension, kidney stones, myocardial infarction Additional medical history: BPH, Chronic hypoxic resp failure Psychiatric history: no psych history - Past Surgical History Surgical History: ureteral stent Additional surgical history: kidney stent,l heart cath - Social History Smoking Status: Current every day smoker Smokeless Tobacco Status: No Alcohol use: rarely Drug use: none Medications and Allergies RX: Albuterol Neb [Proventil Neb] 2.5 mg IH Q6H PRN 04/25/18 [History] RX: Albuterol Sulfate [Proair Hfa] 1 puff IH Q4H PRN 04/25/18 [History] RX: Aspirin [Lo-Dose Aspirin EC] 81 mg PO DAILY 04/25/18 [History] RX: Atorvastatin Calcium [Lipitor] 40 mg PO HS 04/25/18 [History] RX: Baclofen 20 mg PO BID 04/25/18 [History] RX: Budesonide/Formoterol 160/4.5 [Symbicort 160/4.5] 2 puff IH BIDR 04/25/18 [History] RX: Cilostazol 50 mg PO BID 04/25/18 [History] RX: Escitalopram [Lexapro] 10 mg PO DAILY 04/25/18 [History] RX: Lisinopril 2.5 mg PO DAILY 04/25/18 [History] RX: Metoprolol Succinate [Toprol Xl] 25 mg PO DAILY 04/25/18 [History] RX: Nicotine Patch [Nicoderm] 21 mg TD DAILY 04/25/18 [History] RX: Nitroglycerin [Nitrostat] 0.4 mg SL Q5M PRN 04/25/18 [History] RX: Omeprazole [PriLOSEC] 40 mg PO DAILY 04/25/18 [History] RX: Oxygen 2 l NS HS 04/25/18 [History] RX: Primidone [Mysoline] 50 mg PO BID 04/25/18 [History] RX: Roflumilast [Daliresp] 500 mcg PO DAILY 04/25/18 [History] RX: Tamsulosin [Flomax] 0.4 mg PO DAILY 04/25/18 [History] RX: Tiotropium [Spiriva] 18 mcg IH 0700 04/25/18 [History] RX: hydrOXYzine HCl [Hydroxyzine HCl] 25 mg PO HS PRN 04/25/18 [History] Isosorbide MONOnitrate (24 HR) [Imdur] 120 mg PO DAILY 09/30/18 [History] MethylPREDNISolone [MethylPREDNISolone Dose Pack] 4 mg PO AD 09/30/18 [History] RX: Doxycycline 100 mg PO BID 09/30/18 [History] Allergy/AdvReac Type Severity Reaction Status Date / Time No Known Allergies Allergy Verified 04/25/18 10:21 All Systems: The remainder of the systems were reviewed and are negative - Constitutional Constitutional: no chills, no fatigue, no fever(s), no headache(s), no lethargy - EENT Eyes: no loss of vision Ears: no decreased hearing Nose, mouth and throat: no dizziness, no headache(s), no nasal congestion, no sinus pressure - Cardiovascular Cardiovascular: dyspnea, dyspnea on exertion, no chest pain, no chest pain at rest, no diaphoresis, no edema, no irregular heart rhythm - Respiratory Respiratory: cough, dyspnea on exertion, chest congestion, excessive phlegm production, no wheezing, no change in phlegm color - Gastrointestinal Gastrointestinal: no abdominal pain, no diarrhea, no nausea, no vomiting - Musculoskeletal Musculoskeletal: no back pain - Integumentary Integumentary: no rash - Neurological Neurological: no confusion, no headache(s) Physical Examination Vital Signs: Vital Signs, Last 4 Hours Temp Pulse Resp BP Pulse Ox 09/30/18 11:09 98.3 F 68 20 147/93 09/30/18 10:16 22 93 09/30/18 08:41 90 09/30/18 07:45 97.6 F 69 18 137/99 100 General appearance: no acute distress, alert Eyes: nonicteric ENT: oropharynx moist Neck: supple Effort: normal Inspection: normal Auscultation: bilateral: diminished breath sounds (Diminished lung sounds at b/l bases; no wheezes, rales, rhonchi, crackles) Cardiovascular: regular rate and rhythm Gastrointestinal: normoactive bowel sounds, soft, non-tender, non-distended Integumentary: normal normal mental status, non-focal exam, pupils equal and round, CN II-XII normal mood appropriate, affect normal Results - Laboratory Findings CBC and BMP: 09/30/18 04:42 09/30/18 04:42 PT/INR, D-dimer D-Dimer 282 ng/mLFEU (0-500) 09/29/18 19:55 Abnormal lab findings: Abnormal lab results RBC 4.02 M/mcL (4.19-5.50) L 09/30/18 04:42 Hgb 12.7 g/dL (12.9-16.9) L 09/30/18 04:42 Carbon Dioxide 32 mEq/L (23-29) H 09/30/18 04:42 Creatinine 0.52 mg/dL (0.70-1.30) L 09/30/18 04:42 BUN/Creatinine Ratio 29 (6-26) H 09/30/18 04:42 Entero/Rhino (PCR) DETECTED (Not Detect) A 09/29/18 21:30 - Clinical Findings Intake & Output: Intake & Output 09/29/18 09/30/18 09/30/18 23:59 07:59 15:59 Intake Total 0 / 0 Output Total 200 / 200 150 / 150 Balance -200 / -200 -150 / -150 Weight 59.1 kg 59 kg Consult Discharge Plan - Plan Referrals: Mary Lou Rojo, EXPERIMENTAL ASSEMBLER [Advanced Practice Nurse] - 10/09/18 1:00 pm <Barbara Wilkins M - Last Filed: 09/30/18 17:12> Date of Encounter: 09/30/18 All Systems: The remainder of the systems were reviewed and are negative Physical Examination Vital Signs: Vital Signs, Last 4 Hours Temp Pulse Resp BP Pulse Ox 09/30/18 16:59 24 159/99 100 09/30/18 16:53 98.1 F 84 22 159/99 95 Results - Laboratory Findings CBC and BMP: 09/30/18 04:42 09/30/18 04:42 PT/INR, D-dimer D-Dimer 282 ng/mLFEU (0-500) 09/29/18 19:55 Abnormal lab findings: Abnormal lab results RBC 4.02 M/mcL (4.19-5.50) L 09/30/18 04:42 Hgb 12.7 g/dL (12.9-16.9) L 09/30/18 04:42 Carbon Dioxide 32 mEq/L (23-29) H 09/30/18 04:42 Creatinine 0.52 mg/dL (0.70-1.30) L 09/30/18 04:42 BUN/Creatinine Ratio 29 (6-26) H 09/30/18 04:42 Entero/Rhino (PCR) DETECTED (Not Detect) A 09/29/18 21:30 - Clinical Findings Intake & Output: Intake & Output 09/30/18 09/30/18 09/30/18 07:59 15:59 23:59 Intake Total 0 / 0 Output Total 150 / 150 Balance -150 / -150 Weight 59 kg - Attending Attestation I examined this patient and my medical decision-making was reviewed with the Resident Physician. I agree with the documented findings, disposition and treatment plan as described except to the extent set forth below. Patient seen and examined. Labs, radiology, chart personally reviewed. Agree with resident's history and physical, assessment, plan with following comments: JUDICIAL CLERK: Patient follows commands, Pulmonary: Acceptable oxygenation and ventilation and patient is tolerating noninvasive ventilation. Patient is been on bronchodilators and systemic steroid and he is being appropriately treated. Patient started feeling better and unfortunately with viral infection sometimes condition deteriorate which I do not expect it will happen in this patient since he already started to feel better. Thank you for consultation and please do not hesitate to call for any questions. Patient can follow-up as outpatient.
[2018-09-30] MEDS ORDERED: Ketorolac 15 MG/ML VIAL IVP PRN (11:56)
[2018-09-30] MEDS ORDERED: *HR* FentaNYL (PF) 100 MCG/2 ML VIAL IVP ONE ×2 (13:54→13:56)
[2018-09-30] MEDS: Azithromycin 500 MG in D5% in Water 250 ML IVPB SCH (17:39)
[2018-10-01 05:15] LABS: BUN/Creatinine Ratio 41 (6-26); Blood Urea Nitrogen 20 mg/dL (6-20); Calcium 8.9 mg/dL (8.6-10.3); Carbon Dioxide 31 mEq/L (23-29); Chloride 99 mEq/L (98-107); Glucose 107 mg/dL (70-105); Osmolality,Calculated 287 (280-300); Potassium 4.1 mEq/L (3.5-5.1); Sodium 137 mEq/L (136-145); eGFR For Non-African Americans > 60 (> 60)
[2018-10-01] MEDS: Ipratropium/Albuterol Neb 3 ML IH SCH ×4 (05:19→22:45)
[2018-10-01] MEDS: MethylPREDNISolone 40 MG/ML VIAL IVP SCH ×3 (05:31→20:10)
[2018-10-01] MEDS: Aspirin Enteric Coated 81 MG Tablet PO SCH (08:01)
[2018-10-01] MEDS: Nicotine 21 MG PATCH.TD24 TD SCH (08:01)
[2018-10-01] MEDS: Baclofen 10 MG TABLET PO SCH ×2 (08:01→20:10)
[2018-10-01] MEDS: Primidone 50 MG TABLET PO SCH ×2 (08:01→20:10)
[2018-10-01] MEDS: Isosorbide MONOnitrate (24 HR) 60 MG TAB.ER.24H PO SCH (08:01)
[2018-10-01] MEDS: *HR* Heparin 5,000 UNIT/ML VIAL SQ SCH ×2 (08:01→15:00)
[2018-10-01] MEDS: Metoprolol XL (24 HR) Succ 25 MG TAB.ER.24H PO SCH (08:01)
--- NOTE | 2018-10-01 09:26 | Internal Med Progress Note ---
<Vamsi Esqueda - Last Filed: 10/01/18 09:39> Hospitalist Progress Note - Encounter Date of Encounter: 10/01/18 Time of Encounter: 09:05 - Subjective Interval History: Patient seen and examined at bedside this morning. He states that overall he is feeling much better from prior to admission. Still does admit to a productive cough with thick white sputum but breathing has improved. Denies any fevers, chills, nausea, vomiting. - Exam Vitals: Temp Pulse Resp BP Pulse Ox 97.7 F 61 18 144/90 98 10/01/18 04:32 10/01/18 06:53 10/01/18 05:19 10/01/18 06:53 10/01/18 06:53 Exam: Gen.: Vitals noted. No acute distress. AAOx3, resting comfortably in bed. Tolerative NC HEENT: PERRL/EOMI, oropharynx clear, Normocephalic, atraumatic, MMM Cardiac: RRR, no murmur, +S1/S2, No BLE edema Pulmonary: Great improvement to his wheezing today. Mildly present at bases, otherwise clear to auscultation, equal chest expansion, unlabored breathing Abdomen: soft, nontender, BS noted, no guarding, no palpable HSM Skin: warm and dry, no visible lesions. MSK: ROM unassessed, no joint swelling noted, gait no assessed while in bed. Non tender calf or clubbing Neuro: A&Ox3, moves all extremities, no focal deficits Psych: Appropriate mood and behavior, AOx3 - Assessment and Plan (1) Acute and chronic respiratory failure Current Visit: Yes Status: Acute Assessment and Plan: - Evidence of acute on chronic respiratory failure with hypoxic and hypercapnia as noted in [facility] ED - Causative etiology is likely COPD exacerbation secondary to positive rhinovirus - Patient is home oxygen dependent on 2 L - No evidence of leukocytosis or fevers to suggest pneumonia etiology - Clinically improving with current regimen - Respiratory infectious panel positive for rhinovirus - Chest x-ray in [facility] emergency department obtained but unreported results. - Repeat CXR on 09/30/18 shows no acute process with severe emphysematous changes - Started on Solu-Medrol 40 mg every 6 hours, Mucinex, home Symbicort, azithromycin, bronchodilators - Currently tolerating NC with BiPAP at night. - We will consult pulmonology per patient request, appreciate recommendations Plan - Continue current regimen including steroids, bronchodilators, azithromycin day #3 - Will taper steroids to 40mg q12 hours - Continue BiPAP support QHS, PRN (2) Acute exacerbation of chronic obstructive airways disease Current Visit: Yes Status: Acute Assessment and Plan: as above (3) Rhinovirus Current Visit: Yes Status: Acute Assessment and Plan: as above on PCR will provide supportive care (4) CAD (coronary artery disease) Current Visit: Yes Status: Chronic Assessment and Plan: - No complaints of chest pain - Continue to monitor - Continue home medications - EKG reviewed (5) HTN (hypertension) Current Visit: Yes Status: Chronic Assessment and Plan: - Currently mildly elevated at 144/90, will continue to monitor at this time - We will continue current regimen (6) GERD (gastroesophageal reflux disease) Current Visit: Yes Status: Chronic Assessment and Plan: continue home PPI (7) Hyperlipemia Current Visit: Yes Status: Chronic Assessment and Plan: continue home meds (8) BPH (benign prostatic hyperplasia) Current Visit: Yes Status: Chronic Assessment and Plan: continue home flomax (9) Tobacco abuse Current Visit: Yes Status: Chronic Assessment and Plan: - Did have a lengthy discussion about cessation today - he has attempted to quit in the past with chantix - Currently on nicotine patch, aims to quit upon discharge (10) DVT prophylaxis Current Visit: Yes Status: Acute Assessment and Plan: subcutaneous heparin - Time Spent with Patient Total time spent is greater than 50% in coordination of care (as documented) at patient's floor/unit and/or counseling patient: Internal Medicine: Result - Labs CBC & Chem 7: 09/30/18 04:42 10/01/18 04:43 Labs: BMP 10/01/18 04:43 Sodium 137 Potassium 4.1 Chloride 99 Carbon Dioxide 31 H BUN 20 Creatinine 0.49 L Glucose 107 H Calcium 8.9 - ABG Interpretation ABG results: PT/INR, D-dimer D-Dimer 282 ng/mLFEU (0-500) 09/29/18 19:55 - Impressions Impressions Chest X-Ray 09/30/18 12:31 IMPRESSION: Stable chest with no acute cardiopulmonary process. Severe emphysematous changes again seen in the lungs with prominent bullous disease at the right lung apex. D/ / Yohannes Chaudhary MD / Yohannes Chaudhary MD Interpreting Provider: Yohannes Chaudhary MD Consult Discharge Plan - Plan Referrals: Mary Lou Rojo [employer] ARTISTIC DIRECTOR [Advanced Practice Nurse] - 10/09/18 1:00 pm <Lisa Alexis - Last Filed: 10/01/18 13:28> Hospitalist Progress Note - Encounter Date of Encounter: 10/01/18 - Exam Vitals: Temp Pulse Resp BP Pulse Ox 98.7 F 102 18 108/84 86 10/01/18 11:26 10/01/18 11:26 10/01/18 05:19 10/01/18 11:26 10/01/18 11:26 - Assessment and Plan (1) Acute exacerbation of chronic obstructive airways disease Current Visit: Yes Status: Acute (2) Respiratory failure Current Visit: No Status: Acute (3) CAD (coronary artery disease) Current Visit: Yes Status: Chronic (4) HTN (hypertension) Current Visit: Yes Status: Chronic (5) GERD (gastroesophageal reflux disease) Current Visit: Yes Status: Chronic (6) Hyperlipemia Current Visit: Yes Status: Chronic (7) BPH (benign prostatic hyperplasia) Current Visit: Yes Status: Chronic (8) Tobacco abuse Current Visit: Yes Status: Chronic - Time Spent with Patient Total time spent is greater than 50% in coordination of care (as documented) at patient's floor/unit and/or counseling patient: Internal Medicine: Result - Labs CBC & Chem 7: 09/30/18 04:42 10/01/18 04:43 Labs: BMP 10/01/18 04:43 Sodium 137 Potassium 4.1 Chloride 99 Carbon Dioxide 31 H BUN 20 Creatinine 0.49 L Glucose 107 H Calcium 8.9 - ABG Interpretation ABG results: PT/INR, D-dimer D-Dimer 282 ng/mLFEU (0-500) 09/29/18 19:55 - Impressions Impressions Chest X-Ray 09/30/18 12:31 IMPRESSION: Stable chest with no acute cardiopulmonary process. Severe emphysematous changes again seen in the lungs with prominent bullous disease at the right lung apex. D/ / Yohannes Chaudhary MD / Yohannes Chaudhary MD Interpreting Provider: Yohannes Chaudhary MD - Attending Attestation I examined this patient and my medical decision-making was reviewed with the Resident Physician Dr Esqueda. I agree with the documented findings, disposition and treatment plan as described except to the extent set forth below. Mr Hernandez is currently admitted for respiratory failure and COPD exacerbation. Mr Hernandez is awake, eating breakfast. taken off bipap and currently on nc and tolerating without sob. + cough, + tightness/wheezing. no fevers or chills gen- alert, awake,appears stated age eyes- pupils equal round cv- reg rate and rhythm, normal s1,s2, no murmurs appreciated lungs-diminoshed breath sounds throughout, reduced aeration no wheezing, rhonchi or crackles, normal resp effort on o2 nc neuro- AAOx3 1. Acute on chronic Respiratory failure - weaning off bipap, Appreciate pulm input. overnight bipap qualification study tonight 2. COPD exac with + Rhinovirus- reduce IV steroids, cont levaquin, aerosols, oxygen, mucinex Further diagnoses and plan as noted by resident <Vamsi Esqueda - Last Filed: 10/01/18 09:39> (1) Acute and chronic respiratory failure Qualifiers: Respiratory failure complication: hypoxia and hypercapnia Qualified Code(s): J96.21 - Acute and chronic respiratory failure with hypoxia; J96.22 - Acute and chronic respiratory failure with hypercapnia (4) CAD (coronary artery disease) Qualifiers: Coronary Disease-Associated Artery/Lesion type: [place] artery [place] vs. transplanted heart: [place] heart Associated angina: without angina Qualified Code(s): I25.10 - Atherosclerotic heart disease of [place] coronary artery without angina pectoris (5) HTN (hypertension) Qualifiers: Hypertension type: essential hypertension Qualified Code(s): I10 - Essential (primary) hypertension (6) GERD (gastroesophageal reflux disease) Qualifiers: Esophagitis presence: esophagitis presence not specified Qualified Code(s): K21.9 - Gastro-esophageal reflux disease without esophagitis (7) Hyperlipemia Qualifiers: Hyperlipidemia type: mixed hyperlipidemia Qualified Code(s): E78.2 - Mixed hyperlipidemia (8) BPH (benign prostatic hyperplasia) Qualifiers: Lower urinary tract symptom presence: symptoms absent Qualified Code(s): N40.0 - Benign prostatic hyperplasia without lower urinary tract symptoms <Lisa Alexis - Last Filed: 10/01/18 13:28> (2) Respiratory failure Qualifiers: Chronicity: acute on chronic Respiratory failure complication: hypoxia and hypercapnia Qualified Code(s): J96.21 - Acute and chronic respiratory failure with hypoxia; J96.22 - Acute and chronic respiratory failure with hypercapnia (3) CAD (coronary artery disease) Qualifiers: Coronary Disease-Associated Artery/Lesion type: [place] artery [place] vs. transplanted heart: [place] heart Associated angina: without angina Qualified Code(s): I25.10 - Atherosclerotic heart disease of [place] coronary artery without angina pectoris (4) HTN (hypertension) Qualifiers: Hypertension type: essential hypertension Qualified Code(s): I10 - Essential (primary) hypertension (5) GERD (gastroesophageal reflux disease) Qualifiers: Esophagitis presence: esophagitis presence not specified Qualified Code(s): K21.9 - Gastro-esophageal reflux disease without esophagitis (6) Hyperlipemia Qualifiers: Hyperlipidemia type: mixed hyperlipidemia Qualified Code(s): E78.2 - Mixed hyperlipidemia (7) BPH (benign prostatic hyperplasia) Qualifiers: Lower urinary tract symptom presence: symptoms absent Qualified Code(s): N40.0 - Benign prostatic hyperplasia without lower urinary tract symptoms
[2018-10-01] MEDS: Budesonide/Formoterol 160/4.5 1 PUFF INH IH SCH ×2 (09:39→22:45)
[2018-10-01] MEDS: Azithromycin 500 MG in D5% in Water 250 ML IVPB SCH (17:32)
[2018-10-02] MEDS: *HR* Heparin 5,000 UNIT/ML VIAL SQ SCH ×4 (01:00→23:02)
[2018-10-02] MEDS: Ipratropium/Albuterol Neb 3 ML IH SCH ×4 (04:49→21:40)
[2018-10-02 05:01] LABS: Eosinophils % 0.1 %; Hematocrit 36.5 % (37.5-50.1); Hemoglobin 12.4 g/dL (12.9-16.9); Immature Granulocytes % 0.5 % (0-4); Lymphocytes # 1.8 K/mcL (0.6-4.6); Lymphocytes % 20.3 %; Mean Corpuscular Hemoglobin 31.8 pg (28.0-33.3); Mean Corpuscular Volume 93.6 fL (83.0-100.0); Mean Platelet Volume 10.2 fL (9.4-12.4); Monocytes # 0.7 K/mcL (0.0-1.3); Monocytes % 8.5 %; Neutrophils # 6.1 K/mcL (1.6-8.9); Platelet Count 219 K/mcL (140-400); Red Cell Distribution Width 12.6 % (11.5-14.5); Segmented Neutrophils % 70.6 %
[2018-10-02 05:22] LABS: BUN/Creatinine Ratio 44 (6-26); Blood Urea Nitrogen 24 mg/dL (6-20); Calcium 8.5 mg/dL (8.6-10.3); Carbon Dioxide 32 mEq/L (23-29); Chloride 104 mEq/L (98-107); Glucose 145 mg/dL (70-105); Osmolality,Calculated 303 (280-300); Potassium 3.8 mEq/L (3.5-5.1); Sodium 143 mEq/L (136-145); eGFR For Non-African Americans > 60 (> 60)
[2018-10-02 05:46] LABS: ABG Base Excess 7 mEq/L (-2 to 3); ABG HCO3 33 mEq/L (21-27); ABG Oxygen Saturation 93 % (95-98); ABG PCO2 50 mmHg (35-45); ABG PH 7.42 pH Units (7.32-7.45); ABG PO2 68 mmHg (85-104); ABG TCO2 34 mEq/L (20-26)
[2018-10-02] MEDS: Metoprolol XL (24 HR) Succ 25 MG TAB.ER.24H PO SCH (07:36)
[2018-10-02] MEDS: Baclofen 10 MG TABLET PO SCH ×2 (07:36→19:58)
[2018-10-02] MEDS: Isosorbide MONOnitrate (24 HR) 60 MG TAB.ER.24H PO SCH (07:36)
[2018-10-02] MEDS: Primidone 50 MG TABLET PO SCH ×2 (07:36→19:58)
[2018-10-02] MEDS: Aspirin Enteric Coated 81 MG Tablet PO SCH (07:37)
[2018-10-02] MEDS: Nicotine 21 MG PATCH.TD24 TD SCH (07:37)
[2018-10-02] MEDS: MethylPREDNISolone 40 MG/ML VIAL IVP SCH ×2 (07:46→19:59)
--- NOTE | 2018-10-02 10:05 | Internal Med Progress Note ---
<Vamsi Esqueda - Last Filed: 10/02/18 13:14> Hospitalist Progress Note - Encounter Date of Encounter: 10/02/18 Time of Encounter: 10:02 - Subjective Interval History: Patient seen and examined at bedside this morning. He states that overall he is feeling much better from prior to admission. Still does admit to a productive cough with thick white sputum but breathing has improved. Denies any fevers, chills, nausea, vomiting. - Exam Vitals: Temp Pulse Resp BP Pulse Ox 98.1 F 64 14 150/92 96 10/02/18 07:26 10/02/18 07:26 10/02/18 07:26 10/02/18 07:26 10/02/18 07:26 Exam: Gen.: Vitals noted. No acute distress. AAOx3, resting comfortably in bed. Tolerating NC HEENT: PERRL/EOMI, oropharynx clear, Normocephalic, atraumatic, MMM Cardiac: RRR, no murmur, +S1/S2, No BLE edema Pulmonary: Mild wheezing present at bases which is mildly worsened but improved from admission, otherwise clear to auscultation, equal chest expansion, unl abored breathing Abdomen: soft, nontender, BS noted, no guarding, no palpable HSM Skin: warm and dry, no visible lesions. MSK: ROM unassessed, no joint swelling noted, gait no assessed while in bed. Non tender calf or clubbing Neuro: A&Ox3, moves all extremities, no focal deficits Psych: Appropriate mood and behavior, AOx3 - Assessment and Plan (1) Acute and chronic respiratory failure Current Visit: Yes Status: Acute Assessment and Plan: - Evidence of acute on chronic respiratory failure with hypoxic and hypercapnia as noted in [facility] ED - Causative etiology is likely COPD exacerbation secondary to positive rhinovirus - Patient is home oxygen dependent on 2 L - No evidence of leukocytosis or fevers to suggest pneumonia etiology - Clinically improving with current regimen - Respiratory infectious panel positive for rhinovirus - Chest x-ray in [facility] emergency department obtained but unreported results. - Repeat CXR on 09/30/18 shows no acute process with severe emphysematous changes - Started on Solu-Medrol 40 mg every 6 hours, Mucinex, home Symbicort, azithromy madiha, bronchodilators - Currently tolerating NC with BiPAP at night. - We will consult pulmonology per patient request, appreciate recommendations Plan - Continue current regimen including steroids, bronchodilators, azithromycin day #4 - Will taper steroids to 40mg q12 hours, continue current dosage and hopefully transition to oral steroids tomorrow - Continue BiPAP support QHS, PRN-- await results of BiPAP qualification study -We will likely need 6 minute walk test before discharge to qualify for continuous oxygen (2) Acute exacerbation of chronic obstructive airways disease Current Visit: Yes Status: Acute Assessment and Plan: As above (3) Rhinovirus Current Visit: Yes Status: Acute Assessment and Plan: as above on PCR will provide supportive care (4) CAD (coronary artery disease) Current Visit: Yes Status: Chronic Assessment and Plan: - No complaints of chest pain - Continue to monitor - Continue home medications - EKG reviewed (5) HTN (hypertension) Current Visit: Yes Status: Chronic Assessment and Plan: - Currently mildly elevated at 150/92, will continue to monitor at this time - Suspect this might be falsely elevated secondary to respiratory status as well as above - We will continue current regimen (6) GERD (gastroesophageal reflux disease) Current Visit: Yes Status: Chronic Assessment and Plan: Continue home meds (7) Hyperlipemia Current Visit: Yes Status: Chronic Assessment and Plan: Continue home meds (8) BPH (benign prostatic hyperplasia) Current Visit: Yes Status: Chronic Assessment and Plan: Continue home Flomax (9) Tobacco abuse Current Visit: Yes Status: Chronic Assessment and Plan: - Did have a lengthy discussion about cessation today - he has attempted to quit in the past with chantix - Currently on nicotine patch, aims to quit upon discharge (10) DVT prophylaxis Current Visit: Yes Status: Acute Assessment and Plan: Subcutaneous heparin - Time Spent with Patient Total time spent is greater than 50% in coordination of care (as documented) at patient's floor/unit and/or counseling patient: Internal Medicine: Result - Labs CBC & Chem 7: 10/02/18 03:56 10/02/18 03:56 Labs: Short CBC 10/02/18 Range/Units 03:56 WBC 8.7 (4.3-11.1) K/mcL Hgb 12.4 L (12.9-16.9) g/dL Hct 36.5 L (37.5-50.1) % Plt Count 219 (140-400) K/mcL Neutrophils # 6.1 (1.6-8.9) K/mcL BMP 10/02/18 03:56 Sodium 143 Potassium 3.8 Chloride 104 Carbon Dioxide 32 H BUN 24 H Creatinine 0.54 L Glucose 145 H Calcium 8.5 L - ABG Interpretation ABG results: ABG ABG pH 7.42 pH Units (7.32-7.45) 10/02/18 05:43 ABG pCO2 50 mmHg (35-45) H 10/02/18 05:43 ABG pO2 68 mmHg (85-104) L 10/02/18 05:43 ABG O2 Saturation 93 % (95-98) L 10/02/18 05:43 PT/INR, D-dimer D-Dimer 282 ng/mLFEU (0-500) 09/29/18 19:55 Consult Discharge Plan - Plan Referrals: Mary Lou Rojo MUSIC MIXER [Advanced Practice Nurse] - 10/09/18 1:00 pm <Lisa Alexis - Last Filed: 10/02/18 13:38> Hospitalist Progress Note - Encounter Date of Encounter: 10/02/18 - Exam Vitals: Temp Pulse Resp BP Pulse Ox 98.1 F 64 16 150/92 87 10/02/18 07:26 10/02/18 07:26 10/02/18 11:04 10/02/18 07:26 10/02/18 11:04 - Assessment and Plan (1) Acute exacerbation of chronic obstructive airways disease Current Visit: Yes Status: Acute (2) Respiratory failure Current Visit: No Status: Acute (3) CAD (coronary artery disease) Current Visit: Yes Status: Chronic (4) HTN (hypertension) Current Visit: Yes Status: Chronic (5) GERD (gastroesophageal reflux disease) Current Visit: Yes Status: Chronic (6) Hyperlipemia Current Visit: Yes Status: Chronic (7) BPH (benign prostatic hyperplasia) Current Visit: Yes Status: Chronic (8) Tobacco abuse Current Visit: Yes Status: Chronic - Time Spent with Patient Total time spent is greater than 50% in coordination of care (as documented) at patient's floor/unit and/or counseling patient: Internal Medicine: Result - Labs CBC & Chem 7: 10/02/18 03:56 10/02/18 03:56 Labs: Short CBC 10/02/18 Range/Units 03:56 WBC 8.7 (4.3-11.1) K/mcL Hgb 12.4 L (12.9-16.9) g/dL Hct 36.5 L (37.5-50.1) % Plt Count 219 (140-400) K/mcL Neutrophils # 6.1 (1.6-8.9) K/mcL BMP 10/02/18 03:56 Sodium 143 Potassium 3.8 Chloride 104 Carbon Dioxide 32 H BUN 24 H Creatinine 0.54 L Glucose 145 H Calcium 8.5 L - ABG Interpretation ABG results: ABG ABG pH 7.42 pH Units (7.32-7.45) 10/02/18 05:43 ABG pCO2 50 mmHg (35-45) H 10/02/18 05:43 ABG pO2 68 mmHg (85-104) L 10/02/18 05:43 ABG O2 Saturation 93 % (95-98) L 10/02/18 05:43 PT/INR, D-dimer D-Dimer 282 ng/mLFEU (0-500) 09/29/18 19:55 - Attending Attestation I examined this patient and my medical decision-making was reviewed with the Resident Physician Dr Esqueda. I agree with the documented findings, disposition and treatment plan as described except to the extent set forth below. Mr Hernandez is currently admitted for respiratory failure and COPD exacerbation. Mr Hernandez is awake, sitting at side of bed talking with family at bedside. He is on o2 nc. he is notably sob and confirmed he is having some trouble catching his breath Helped to position back to bed and o2 sat 90 on 2L NC. O2 increased to 3L and RN notified. He is overall feeling better wth improved wheezing and cough but became sob with conversation. This was a change from when he was seen earlier in the morning by resident gen- alert, awake,appears stated age eyes- pupils equal round cv- reg rate and rhythm, normal s1,s2, no murmurs appreciated, no le edema lungs-mild resp distress with pursed lip breathing,o2 nc, diminished breath sounds throughout, but overall improved aeration today, no wheezing, rhonchi or crackles neuro- AAOx3 1. Acute on chronic Respiratory failure - weaned off bipap, monitor resp status closely for increased needs today on NC, Appreciate pulm input. did not qualify for bipap qualification 2. COPD exac with + Rhinovirus- cont current IV steroids, correction to prior documentation, NOT on levaquin, on azithro, cont aerosols, oxygen, mucinex Further diagnoses and plan as noted by resident <Vamsi Esqueda - Last Filed: 10/02/18 13:14> (1) Acute and chronic respiratory failure Qualifiers: Respiratory failure complication: hypoxia and hypercapnia Qualified Code(s): J96.21 - Acute and chronic respiratory failure with hypoxia; J96.22 - Acute and chronic respiratory failure with hypercapnia (4) CAD (coronary artery disease) Qualifiers: Coronary Disease-Associated Artery/Lesion type: [place] artery [place] vs. transplanted heart: [place] heart Associated angina: without angina Qualified Code(s): I25.10 - Atherosclerotic heart disease of [place] coronary artery without angina pectoris (5) HTN (hypertension) Qualifiers: Hypertension type: essential hypertension Qualified Code(s): I10 - Essential (primary) hypertension (6) GERD (gastroesophageal reflux disease) Qualifiers: Esophagitis presence: esophagitis presence not specified Qualified Code(s): K21.9 - Gastro-esophageal reflux disease without esophagitis (7) Hyperlipemia Qualifiers: Hyperlipidemia type: mixed hyperlipidemia Qualified Code(s): E78.2 - Mixed hyperlipidemia (8) BPH (benign prostatic hyperplasia) Qualifiers: Lower urinary tract symptom presence: symptoms absent Qualified Code(s): N40.0 - Benign prostatic hyperplasia without lower urinary tract symptoms <Lisa Alexis - Last Filed: 10/02/18 13:38> (2) Respiratory failure Qualifiers: Chronicity: acute on chronic Respiratory failure complication: hypoxia and hypercapnia Qualified Code(s): J96.21 - Acute and chronic respiratory failure with hypoxia; J96.22 - Acute and chronic respiratory failure with hypercapnia (3) CAD (coronary artery disease) Qualifiers: Coronary Disease-Associated Artery/Lesion type: [place] artery [place] vs. transplanted heart: [place] heart Associated angina: without angina Qualified Code(s): I25.10 - Atherosclerotic heart disease of [place] coronary artery without angina pectoris (4) HTN (hypertension) Qualifiers: Hypertension type: essential hypertension Qualified Code(s): I10 - Essential (primary) hypertension (5) GERD (gastroesophageal reflux disease) Qualifiers: Esophagitis presence: esophagitis presence not specified Qualified Code(s): K21.9 - Gastro-esophageal reflux disease without esophagitis (6) Hyperlipemia Qualifiers: Hyperlipidemia type: mixed hyperlipidemia Qualified Code(s): E78.2 - Mixed hyperlipidemia (7) BPH (benign prostatic hyperplasia) Qualifiers: Lower urinary tract symptom presence: symptoms absent Qualified Code(s): N40.0 - Benign prostatic hyperplasia without lower urinary tract symptoms
[2018-10-02] MEDS: Budesonide/Formoterol 160/4.5 1 PUFF INH IH SCH ×2 (11:01→21:40)
[2018-10-02] MEDS ORDERED: Azithromycin 250 MG TABLET PO SCH (16:00)
[2018-10-03] MEDS: Ipratropium/Albuterol Neb 3 ML IH SCH ×2 (04:45→09:48)
[2018-10-03 05:21] LABS: BUN/Creatinine Ratio 37 (6-26); Blood Urea Nitrogen 19 mg/dL (6-20); Calcium 9.1 mg/dL (8.6-10.3); Carbon Dioxide 32 mEq/L (23-29); Chloride 104 mEq/L (98-107); Glucose 135 mg/dL (70-105); Osmolality,Calculated 292 (280-300); Potassium 3.9 mEq/L (3.5-5.1); Sodium 139 mEq/L (136-145); eGFR For Non-African Americans > 60 (> 60)
[2018-10-03 07:23] VITALS: BP 141/89
[2018-10-03] MEDS: *HR* Heparin 5,000 UNIT/ML VIAL SQ SCH (08:01)
[2018-10-03] MEDS: Nicotine 21 MG PATCH.TD24 TD SCH (08:01)
[2018-10-03] MEDS: Aspirin Enteric Coated 81 MG Tablet PO SCH (08:01)
[2018-10-03] MEDS: Isosorbide MONOnitrate (24 HR) 60 MG TAB.ER.24H PO SCH (08:01)
[2018-10-03] MEDS: Baclofen 10 MG TABLET PO SCH (08:02)
[2018-10-03] MEDS: Primidone 50 MG TABLET PO SCH (08:02)
[2018-10-03] MEDS: MethylPREDNISolone 40 MG/ML VIAL IVP SCH (08:03)
[2018-10-03] MEDS: Metoprolol XL (24 HR) Succ 25 MG TAB.ER.24H PO SCH (08:03)
[2018-10-03] MEDS ORDERED: predniSONE 20 MG TABLET PO SCH (09:00)
--- NOTE | 2018-10-03 09:44 | Discharge Summary ---
<Vamsi Esqueda - Last Filed: 10/03/18 13:35> - NOTES TO OUTPATIENT PROVIDER Notes to Outpatient Provider: Patient admitted for COPD exacerbation secondary to rhinovirus. Evaluated by advertising account manager. Will be discharged with continuous oxygen, steroid taper, mucinex. Orders not resulted at time of discharge: Pending orders 09/30/18 11:31 Sputum Culture [Culture,Sputum with Gram Stain] [] Routine Date of Encounter: 10/03/18 Time of Encounter: 09:39 - Discharge Diagnosis (1) Acute and chronic respiratory failure Priority: Primary Status: Acute Qualifiers: Respiratory failure complication: hypoxia and hypercapnia Qualified Code(s): J96.21 - Acute and chronic respiratory failure with hypoxia; J96.22 - Acute and chronic respiratory failure with hypercapnia (2) Acute exacerbation of chronic obstructive airways disease Priority: Primary Status: Acute (3) Rhinovirus Priority: Secondary Status: Acute (4) CAD (coronary artery disease) Priority: Secondary Status: Chronic Qualifiers: Coronary Disease-Associated Artery/Lesion type: [place] artery [place] vs. transplanted heart: hoh heart Associated angina: without angina Qualified Code(s): I25.10 - Atherosclerotic heart disease of hoh coronary artery without angina pectoris (5) HTN (hypertension) Priority: Secondary Status: Chronic Qualifiers: Hypertension type: essential hypertension Qualified Code(s): I10 - Essential (primary) hypertension (6) GERD (gastroesophageal reflux disease) Priority: Secondary Status: Chronic Qualifiers: Esophagitis presence: esophagitis presence not specified Qualified Code(s): K21.9 - Gastro-esophageal reflux disease without esophagitis (7) Hyperlipemia Priority: Secondary Status: Chronic Qualifiers: Hyperlipidemia type: mixed hyperlipidemia Qualified Code(s): E78.2 - Mixed hyperlipidemia (8) BPH (benign prostatic hyperplasia) Priority: Secondary Status: Chronic Qualifiers: Lower urinary tract symptom presence: symptoms absent Qualified Code(s): N40.0 - Benign prostatic hyperplasia without lower urinary tract symptoms (9) Tobacco abuse Priority: Secondary Status: Chronic (10) DVT prophylaxis Priority: Secondary Status: Acute Hospital course: Mr. Hernandez is a 58 year old male with past medical history of option dependent COPD, CAD, GERD, hypertension who presented to the emergency department at [facility] with respiratory failure and shortness of breath. He was also seen at [facility] 2 days prior to admission with the same symptoms and he was given a prescription for doxycycline. He continued to become more dyspneic and again presented to [facility] emergency room. He was transferred to [place] because his advertising account manager would be able to see him here. Upon presentation, vital signs were significant for respiratory rate of 21, blood pressure 153/88 and he was tolerating BiPAP with 99% oxygen. He is home option dependent at night at 2 L. Records were reviewed from [facility] which showed hypercapnic hypoxic respiratory failure. Chest x-ray on this admission showed no acute cardiopulmonary process with severe emphysema. Laboratory results were significant for a baseline anemia, within normal limits d-dimer, bicarbonate of 32 and a respiratory infectious panel which was positive for rhinovirus. He was admitted and treated for COPD exacerbation secondary to rhinovirus. He was started on azithromycin, glucocorticoids, bronchodilators with improvement of his symptoms. He was tested for BiPAP qualification which he did not meet criteria. He did however qualify for continuous 2 L of oxygen via nasal cannula. On day of discharge, patient's symptoms have greatly improved and he states that he is near his baseline. He was formally evaluated by pulmonology who agreed with current treatment recommendations. At this time, he is stable for discharge and will be instructed to follow up with his primary care physician as well as advertising account manager within 1 week. He will be discharged home with steroid taper as well as Mucinex for symptomatic control. All questions were answered and he was started to return to emergency department with any worsening of symptoms including increased dyspnea, fevers, chills or chest pains. Discharge discussed with: patient, social work, case management - Time Spent with Patient Total time spent providing and/or coordinating discharge services: - Discharge Medications Prescriptions: GuaiFENesin ER [Mucinex] 1,200 mg PO BID #30 tab predniSONE [PredniSONE] See Taper PO DAILY 12 Days #30 tablet Home Medications: Albuterol Neb [Proventil Neb] 2.5 mg IH Q6H PRN 04/25/18 [History] Albuterol Sulfate [Proair Hfa] 1 puff IH Q4H PRN 04/25/18 [History] Aspirin [Lo-Dose Aspirin EC] 81 mg PO DAILY 04/25/18 [History] Atorvastatin Calcium [Lipitor] 40 mg PO HS 04/25/18 [History] Baclofen 20 mg PO BID 04/25/18 [History] Budesonide/Formoterol 160/4.5 [Symbicort 160/4.5] 2 puff IH BIDR 04/25/18 [History] Cilostazol 50 mg PO BID 04/25/18 [History] Escitalopram [Lexapro] 10 mg PO DAILY 04/25/18 [History] Lisinopril 2.5 mg PO DAILY 04/25/18 [History] Metoprolol Succinate [Toprol Xl] 25 mg PO DAILY 04/25/18 [History] Nicotine Patch [Nicoderm] 21 mg TD DAILY 04/25/18 [History] Nitroglycerin [Nitrostat] 0.4 mg SL Q5M PRN 04/25/18 [History] Omeprazole [PriLOSEC] 40 mg PO DAILY 04/25/18 [History] Oxygen 2 l NS HS 04/25/18 [History] Primidone [Mysoline] 50 mg PO BID 04/25/18 [History] Roflumilast [Daliresp] 500 mcg PO DAILY 04/25/18 [History] Tamsulosin [Flomax] 0.4 mg PO DAILY 04/25/18 [History] Tiotropium [Spiriva] 18 mcg IH 0700 04/25/18 [History] hydrOXYzine HCl [Hydroxyzine HCl] 25 mg PO HS PRN 04/25/18 [History] Isosorbide MONOnitrate (24 HR) [Imdur] 120 mg PO DAILY 09/30/18 [History] GuaiFENesin ER [Mucinex] 1,200 mg PO BID #30 tab 10/03/18 [Rx] predniSONE [PredniSONE] See Taper PO DAILY 12 Days #30 tablet 10/03/18 [Rx] Allergies/Adverse Reactions: Allergy/AdvReac Type Severity Reaction Status Date / Time No Known Allergies Allergy Verified 04/25/18 10:21 Date of admission: 09/29/18 20:15 Primary care physician: PCP NONE Consults: 09/29/18 18:47 Consult to Respiratory Therapy [CONS] Routine Reason for Consult: Bipap Call Completed: No 09/29/18 18:48 Consult to Nurse Navigator [CONS] Routine Comment: 09/30/18 08:22 Consult to Pulmonology [CONS] Routine Consulting Provider: [facility] [place] Reason for Consult: COPD exacerbation, rhinovirus Call Completed: Yes 09/30/18 11:27 Consult to Nurse Navigator [CONS] Routine Comment: COPD Discharging clinician: Vamsi Esqueda Anticipated date of discharge: 10/03/18 - Constitutional Vitals: Temp Pulse Resp BP Pulse Ox 98.3 F 64 15 141/89 99 10/03/18 07:22 10/03/18 07:22 10/03/18 07:22 10/03/18 07:22 10/03/18 07:22 General appearance: Present: A&O X 3 (Currently on bipap) Exam: Gen.: Vitals noted. No acute distress. AAOx3, resting comfortably in bed. Tolerating NC HEENT: PERRL/EOMI, oropharynx clear, Normocephalic, atraumatic, MMM Cardiac: RRR, no murmur, +S1/S2, No BLE edema Pulmonary: clear to auscultation, equal chest expansion, unlabored breathing Abdomen: soft, nontender, BS noted, no guarding, no palpable HSM Skin: warm and dry, no visible lesions. MSK: ROM unassessed, no joint swelling noted, gait no assessed while in bed. Non tender calf or clubbing Neuro: A&Ox3, moves all extremities, no focal deficits Psych: Appropriate mood and behavior, AOx3 - Patient Status Disposition: Home, Self-Care Condition: Fair Functional capacity at discharge: uses cane/walker Overall status at discharge: patient is progressing back to baseline - Discharge Instructions Instructions: COPD Exacerbation, Lieutenant Shift Supervisor (GEN) Follow Up With: Mary Lou Rojo CNP [Advanced Practice Nurse] - 10/09/18 1:00 pm Barbara Wilkins MD [Partnered Physician] - (Referral made, physicians office will the patient contact via phone. ) Additional Instructions: Please follow up with PCP within 5-7 days of discharge and wear oxygen at all times. Take all medication as prescribed. Return to ED with any worsening of symptoms. - Diet and Activity Activity: increase activity as tolerated, resume usual activities as tolerated, wear oxygen at all times Diet: advance to your usual diet <Lisa lAexis - Last Filed: 10/03/18 17:08> Orders not resulted at time of discharge: Pending orders 09/30/18 11:31 Sputum Culture [Culture,Sputum with Gram Stain] [RM] Routine Date of Encounter: 10/03/18 - Discharge Diagnosis (1) Acute exacerbation of chronic obstructive airways disease Status: Acute (2) Respiratory failure Status: Acute Qualifiers: Chronicity: acute on chronic Respiratory failure complication: hypoxia and hypercapnia Qualified Code(s): J96.21 - Acute and chronic respiratory failure with hypoxia; J96.22 - Acute and chronic respiratory failure with hypercapnia (3) CAD (coronary artery disease) Status: Chronic Qualifiers: Coronary Disease-Associated Artery/Lesion type: [place] artery [place] vs. transplanted heart: [place] heart Associated angina: without angina Qualified Code(s): I25.10 - Atherosclerotic heart disease of [place] coronary artery without angina pectoris (4) HTN (hypertension) Status: Chronic Qualifiers: Hypertension type: essential hypertension Qualified Code(s): I10 - Essential (primary) hypertension (5) GERD (gastroesophageal reflux disease) Status: Chronic Qualifiers: Esophagitis presence: esophagitis presence not specified Qualified Code(s): K21.9 - Gastro-esophageal reflux disease without esophagitis (6) Hyperlipemia Status: Chronic Qualifiers: Hyperlipidemia type: mixed hyperlipidemia Qualified Code(s): E78.2 - Mixed hyperlipidemia (7) BPH (benign prostatic hyperplasia) Status: Chronic Qualifiers: Lower urinary tract symptom presence: symptoms absent Qualified Code(s): N40.0 - Benign prostatic hyperplasia without lower urinary tract symptoms (8) Tobacco abuse Status: Chronic Hospital course: Mr. Hernandez is a 58 year old male - Time Spent with Patient Total time spent providing and/or coordinating discharge services: Greater than 30 minutes (40 min) Date of admission: 09/29/18 20:15 Primary care physician: PCP NONE Consults: 09/29/18 18:47 Consult to Respiratory Therapy [CONS] Routine Reason for Consult: Bipap Call Completed: No 09/29/18 18:48 Consult to Nurse Navigator [CONS] Routine Comment: 09/30/18 08:22 Consult to Pulmonology [CONS] Routine Consulting Provider: [facility] [place] Reason for Consult: COPD exacerbation, rhinovirus Call Completed: Yes 09/30/18 11:27 Consult to Nurse Navigator [CONS] Routine Comment: COPD - Constitutional Vitals: Temp Pulse Resp BP Pulse Ox 98.3 F 64 18 141/89 92 10/03/18 07:22 10/03/18 07:22 10/03/18 09:48 10/03/18 07:22 10/03/18 09:48 - Attending Attestation I examined this patient and my medical decision-making was reviewed with the Resident Physician Dr Esqueda. I agree with the documented findings, disposition and treatment plan as described except to the extent set forth below. Mr Hernandez is currently admitted for respiratory failure and COPD exacerbation. Mr Hernandez is awake, family at bedside. He is feeling overall greatly iproved. no sob on 2L NC today. Mild sob with exertion but quickly resolves with rest. Wheezing and cough improved. no fevers or chills. He is eager for dc to home today. He notes he will take it easy and is happy to have home o2 in place. He has a neb machiine and plenty of solution. He denies need for any home med rxs. He will call pcp today to arrange early next week follow up as today is saturday. He will also schedule to fu with Dr Snider his pulm. answered all dc questions. gen- alert, awake,appears stated age eyes- pupils equal round cv- reg rate and rhythm, normal s1,s2, no murmurs appreciated, no le edema lungs- diminished breath sounds throughout,no rhonchi, no wheezing or crackles, normal resp effort on o2 nc neuro- AAOx3 1. Acute on chronic Respiratory failure - improved, stable on o2 2L NC, home o2 arranged prior to dc. He did not qualify for bipap this admit. 2. COPD exac with + Rhinovirus- improving, transitioned to po steroids, outpt taper, completed 5d azithro prior to dc, cont aerosols with home neb/neb machine, oxygen, mucinex 3. HTN- intermittently elevated BPs- cont antihypertensive, fu outpt with pcp for further monitoring and management Further diagnoses and plan as noted by resident dc to home time spent on dc 40 min
[2018-10-03] MEDS: Budesonide/Formoterol 160/4.5 1 PUFF INH IH SCH (09:48)
== END 2018-10-03 14:38 | disposition home or self-care (01) | DRG 140 ==
LOC: 2NNU 20:15 → SUATTDRO 20:15 → 2NENU 10-01 01:49
PROVIDERS: ADMIT Internal Medicine; ATTEND Internal Medicine

== ENCOUNTER 2019-02-26 21:38 | Observation (INO) ==
[2019-02-26] MEDS ORDERED: Ipratropium/Albuterol Neb 3 ML ONE ×2 (21:43→21:53)
[2019-02-26] MEDS ORDERED: Albuterol 2.5 MG/3 ML NEBULIZER ONE (21:43)
[2019-02-26] MEDS ORDERED: Ipratropium/Albuterol Neb 3 ML IH ONE (21:48)
[2019-02-26] MEDS ORDERED: Albuterol 2.5 MG/3 ML NEBULIZER IH ONE (21:48)
[2019-02-26 22:08] LABS: Basophils # 0.1 K/mcL (0.0-0.2); Basophils % 0.6 %; Eosinophils # 0.2 K/mcL (0.0-0.6); Eosinophils % 1.8 %; Hematocrit 44.3 % (37.5-50.1); Hemoglobin 14.6 g/dL (12.9-16.9); Immature Granulocytes % 0.4 % (0-4); Lymphocytes # 1.5 K/mcL (0.6-4.6); Lymphocytes % 17.5 %; Mean Corpuscular Hemoglobin 31.9 pg (28.0-33.3); Mean Corpuscular Volume 96.7 fL (83.0-100.0); Mean Platelet Volume 9.7 fL (9.4-12.4); Monocytes # 0.6 K/mcL (0.0-1.3); Monocytes % 7.2 %; Neutrophils # 6.2 K/mcL (1.6-8.9); Platelet Count 220 K/mcL (140-400); Red Blood Count 4.58 M/mcL (4.19-5.50); Red Cell Distribution Width 13.1 % (11.5-14.5); Segmented Neutrophils % 72.5 %; White Blood Count 8.6 K/mcL (4.3-11.1)
[2019-02-26 22:09] LABS: VBG HCO3 31 mEq/L (21-27); VBG PCO2 63 mmHg (41-51); VBG PO2 69 mmHg (25-50)
[2019-02-26 22:29] LABS: Blood Urea Nitrogen 14 mg/dL (6-20); Calcium 9.1 mg/dL (8.6-10.3); Carbon Dioxide 29 mEq/L (23-29); Chloride 102 mEq/L (98-107); Glucose 111 mg/dL (70-105); Osmolality,Calculated 287 (280-300); Potassium 4.5 mEq/L (3.5-5.1); Sodium 138 mEq/L (136-145)
[2019-02-26 22:30] LABS: Troponin I < 0.03 ng/mL (< 0.04)
--- NOTE | 2019-02-26 22:30 | Emergency Department Note ---
Disposition Clinical Impression: Acute exacerbation of chronic obstructive airways disease Disposition: Admitted As Inpatient Condition: Fair Time of Disposition: 23:40 SOB HPI - General Chief Complaint: ED Shortness of Breath/Dyspnea Stated Complaint: Massimo Time Seen by Provider: 02/26/19 21:48 Source: patient, family, EMS Mode of arrival: EMS Limitations: no limitations Nursing Notes Reviewed: Yes Vital Signs Reviewed: Yes - History of Present Illness 58-year-old male presents to the emergency department with shortness of breath. Patient does have history of COPD he does have oxygen at home is always on 2 L is never had be intubated. He has had to be admitted for longer stays well on BiPAP in the past. States had a cough some congestion as well as a runny nose. There is been no fevers. He said whenever he gets up and walks he is has a hard time catching his breath tonight he said he just cannot catch his breath and asthma called EMS. EMS arrived this is having difficult time breathing and placed him on BiPAP. And responded well to that. Patient is not having any chest pain or any other complaints at this time. Patient has never had a blood clots is a have any other risk factors for having pulmonary embolism or thromboembolisms. - Related Data Home Medications Medication Instructions Recorded Confirmed Albuterol Neb [Proventil Neb] 2.5 mg IH Q6H PRN 04/25/18 02/26/19 Albuterol Sulfate [Proair Hfa] 1 puff IH Q4H PRN 04/25/18 02/26/19 Aspirin [Lo-Dose Aspirin EC] 81 mg PO DAILY 04/25/18 02/26/19 Atorvastatin Calcium [Lipitor] 40 mg PO HS 04/25/18 02/26/19 Baclofen 20 mg PO BID 04/25/18 02/26/19 Budesonide/Formoterol 160/4.5 2 puff IH BIDR 04/25/18 02/26/19 [Symbicort 160/4.5] Cilostazol 50 mg PO BID 04/25/18 02/26/19 Escitalopram [Lexapro] 20 mg PO DAILY 04/25/18 02/26/19 Lisinopril 2.5 mg PO DAILY 04/25/18 02/26/19 Metoprolol Succinate [Toprol Xl] 25 mg PO DAILY 04/25/18 02/26/19 Nicotine Patch [Nicoderm] 21 mg TD DAILY 04/25/18 02/26/19 Nitroglycerin [Nitrostat] 0.4 mg SL Q5M PRN 04/25/18 02/26/19 Omeprazole [PriLOSEC] 40 mg PO DAILY 04/25/18 02/26/19 Oxygen 2 l NS HS 04/25/18 02/26/19 Primidone [Mysoline] 50 mg PO BID 04/25/18 02/26/19 Roflumilast [Daliresp] 500 mcg PO DAILY 04/25/18 02/26/19 Tamsulosin [Flomax] 0.4 mg PO DAILY 04/25/18 02/26/19 Tiotropium [Spiriva] 18 mcg IH 0704/25/18 02/26/19 hydrOXYzine HCl [Hydroxyzine HCl] 25 mg PO HS PRN 04/25/18 02/26/19 Isosorbide MONOnitrate (24 HR) 120 mg PO DAILY 09/30/18 02/26/19 [Imdur] Acetylcysteine [Nac] 1 cap PO DAILY 02/26/19 02/26/19 GuaiFENesin ER [Mucinex] 600 mg PO BID 02/26/19 02/26/19 Allergies Allergy/AdvReac Type Severity Reaction Status Date / Time No Known Allergies Allergy Verified 02/26/19 21:54 All systems ED: reviewed and negative except as stated. Review of Systems: As Per HPI Past Medical History - Past Medical History Attestation: Yes The following information was validated with the patient. Source: patient Medical history: Reports: COPD, coronary artery disease, GERD, hypertension, kidney stones, myocardial infarction Surgical history: Reports: ureteral stent Psychiatric history: Reports: no psych history - Social History Smoking Status: Current every day smoker Smokeless Tobacco Status: No Alcohol use: Reports: rarely Drug use: Reports: none Physical Exam - General Limitations: no limitations General appearance: alert, in no apparent distress - Head Head exam: atraumatic, normocephalic, normal inspection - Eye Eye exam: Present: normal appearance, PERRL, EOMI - ENT ENT exam: normal exam, normal oropharynx, mucous membranes moist - Neck Neck exam: Present: normal inspection, full ROM, trachea midline - Chest Chest inspection: Present: normal inspection, symmetric chest wall rise - Respiratory Respiratory exam: Present: respiratory distress (Mild), wheezes, accessory mus stuart use, prolonged expiratory phase - Cardiovascular Cardiovascular exam: Present: regular rate, normal rhythm, normal heart sounds - Abdominal Exam Abdominal exam: Present: soft, Non-Tender, normal bowel sounds. Absent: tenderness, distention, guarding, rebound, rigidity - Extremities Exam Extremities exam: Present: normal inspection, full ROM. Absent: tenderness, pedal edema - Back Exam Back exam: Present: normal inspection, full ROM. Absent: tenderness, CVA tenderness (R), CVA tenderness (L) - Neurological Exam Neurological exam: Present: alert, oriented X3 - Skin Skin exam: Present: warm, dry, intact, normal color Course Course Narrative: Patient came in via EMS with a gave him Decadron, 1 DuoNeb as well as put on BiPAP. We arrived here he was not in that much respiratory distress he did have wheezing bilaterally. We will give him 2 DuoNeb's one albuterol. We will not give him any more steroids he received Decadron. We will get chest x-ray CBC BMP VBG lactate as well as a pro-calcitonin. Patient was likely will be admitted at this time. He is stable at this time not needing BiPAP doing well on 2 L of oxygen. Vital Signs Respiratory Rate 20 02/26/19 21:54 O2 Sat by Pulse Oximetry 98 02/26/19 21:54 Temperature 97.5 F L 02/26/19 22:01 Pulse Rate 92 02/26/19 22:01 Respiratory Rate 24 02/26/19 22:01 Blood Pressure 137/105 02/26/19 22:01 O2 Sat by Pulse Oximetry 100 02/26/19 22:01 Oxygen Delivery Oxygen Delivery Nasal Cannula Shortness of Breath/Dyspnea - [facility] Narrative Medical decision making narrative: 58-year-old male presented emergency department with shortness of breath. Patient when he came and did not look to be in too much respiratory distress was not on BiPAP when he arrived here he received Decadron by EMS as well as a DuoNeb. We gave him more DuoNeb's and albuterol did not give him anymore steroids as we did not want to add onto the Decadron that was arty given. To start him on azithromycin. Chest x-ray did not show any pneumonia protocol stone was negative so dysuria some azithromycin no pneumonia treatment. Lactate was negative VBG looks good. Patient does not seem to be a CO2 retainer at this time. Patient has been stable on 2 L of oxygen nasal cannula. Has not needed BiPAP while here. Patient will be admitted for further evaluation. I spoke with Dr. Monterroso who agreed to admit him to their service. Patient is ad mitted in stable condition. Chest X-Ray 02/26/19 21:48 IMPRESSION: 1. No acute cardiopulmonary abnormality. 2. Severe emphysema. D/ / Guillermo Mora / Guillermo Mora Interpreting Provider: Guillermo Mora - Medical Records Medical records reviewed: Yes I reviewed the patient's medical records. - Lab Data Lab results reviewed: Yes I reviewed the patient's lab results. Result diagrams: 02/26/19 21:50 02/26/19 21:50 Lab Results 02/26/19 02/26/19 02/26/19 Range/Units 21:50 21:50 21:50 WBC 8.6 (4.3-11.1) K/mcL RBC 4.58 (4.19-5.50) M/mcL Hgb 14.6 (12.9-16.9) g/dL Hct 44.3 (37.5-50.1) % MCV 96.7 (83.0-100.0) fL MCH 31.9 (28.0-33.3) pg MCHC 33.0 (31.6-35.5) g/dL RDW 13.1 (11.5-14.5) % Plt Count 220 (140-400) K/mcL MPV 9.7 (9.4-12.4) fL Immature Gran % 0.4 (0-4) % Seg Neutrophils % 72.5 % Lymphocytes % 17.5 % Monocytes % 7.2 % Eosinophils % 1.8 % Basophils % 0.6 % Neutrophils # 6.2 (1.6-8.9) K/mcL Lymphocytes # 1.5 (0.6-4.6) K/mcL Monocytes # 0.6 (0.0-1.3) K/mcL Eosinophils # 0.2 (0.0-0.6) K/mcL Basophils # 0.1 (0.0-0.2) K/mcL VBG pH (7.32-7.42) pH Units VBG pCO2 (41-51) mmHg VBG pO2 (25-50) mmHg VBG HCO3 (21-27) mEq/L Sodium 138 (136-145) mEq/L Potassium 4.5 (3.5-5.1) mEq/L Chloride 102 (98-107) mEq/L Carbon Dioxide 29 (23-29) mEq/L BUN 14 (6-20) mg/dL Creatinine 0.85 (0.70-1.30) mg/dL Est GFR ( Amer) > 60 (> 60) Est GFR (Non-Af Amer) > 60 (> 60) BUN/Creatinine Ratio 16 (6-26) Glucose 111 H (70-105) mg/dL Calculated Osmolality 287 (280-300) Lactic Acid 1.2 (0.5-2.2) mmol/L Calcium 9.1 (8.6-10.3) mg/dL Troponin I < 0.03 (< 0.04) ng/mL B-Natriuretic Peptide (Less than 100) pg/mL Procalcitonin (0.00-0.15) ng/mL 02/26/19 02/26/19 02/26/19 Range/Units 21:50 21:50 22:07 WBC (4.3-11.1) K/mcL RBC (4.19-5.50) M/mcL Hgb (12.9-16.9) g/dL Hct (37.5-50.1) % MCV (83.0-100.0) fL MCH (28.0-33.3) pg MCHC (31.6-35.5) g/dL RDW (11.5-14.5) % Plt Count (140-400) K/mcL MPV (9.4-12.4) fL Immature Gran % (0-4) % Seg Neutrophils % % Lymphocytes % % Monocytes % % Eosinophils % % Basophils % % Neutrophils # (1.6-8.9) K/mcL Lymphocytes # (0.6-4.6) K/mcL Monocytes # (0.0-1.3) K/mcL Eosinophils # (0.0-0.6) K/mcL Basophils # (0.0-0.2) K/mcL VBG pH 7.30 L (7.32-7.42) pH Units VBG pCO2 63 H (41-51) mmHg VBG pO2 69 H (25-50) mmHg VBG HCO3 31 H (21-27) mEq/L Sodium (136-145) mEq/L Potassium (3.5-5.1) mEq/L Chloride (98-107) mEq/L Carbon Dioxide (23-29) mEq/L BUN (6-20) mg/dL Creatinine (0.70-1.30) mg/dL Est GFR ( Amer) (> 60) Est GFR (Non-Af Amer) (> 60) BUN/Creatinine Ratio (6-26) Glucose (70-105) mg/dL Calculated Osmolality (280-300) Lactic Acid (0.5-2.2) mmol/L Calcium (8.6-10.3) mg/dL Troponin I (< 0.04) ng/mL B-Natriuretic Peptide 27 (Less than 100) pg/mL Procalcitonin 0.04 (0.00-0.15) ng/mL - Radiology Data Radiology results reviewed: Yes I reviewed the patient's radiology results. - EKG Data EKG attestation: Yes I reviewed and interpreted this EKG. EKG results narrative: EKG done at EKG done at 2156 review myself and the attending shows sinus rhythm at a rate of 90, IA 131, QRS 90, QTC 4 weight. Is no acute ST changes no acute T-wave changes nor signs of ischemia. No signs of hypertrophy, heart block. No W BW/Brugada/HOCM. No old EKG to compare with Attestation Statement - Attestation Attestation: I, Alejandro Herzog, examined this patient and my medical decision-making was reviewed with the WASHERY ENGINEER/PA/Advanced Practice Nurse/Resident Physician. I agree with the documented findings, disposition and treatment plan as described except to the extent set forth below. 62-year-old male presents emergency Department with concerns of shortness of breath. Patient states symptoms of worsening over the past 2-3 days. Patient has a history of COPD. He has previously been placed on BiPAP for treatment of his COPD. Patient states he is not well felt well but does not recall fevers at home. On physical exam the patient has expiratory wheezing, he felt improved after DuoNeb the emergency department. He is given albuterol inhaler and Decadron by EMS prior to arrival. Patient states that the treatments significantly improved his condition. He will be admitted to the hospital for further care and evaluation. I reviewed the EKG with the resident and agree with the interpretation.
[2019-02-26 22:59] LABS: BUN/Creatinine Ratio 16 (6-26); eGFR For African Americans > 60 (> 60); eGFR For Non-African Americans > 60 (> 60)
[2019-02-26] MEDS ORDERED: Azithromycin 500 MG in D5% in Water 250 ML IVPB ONE (23:36)
--- NOTE | 2019-02-26 23:42 | Internal Med History&Physical ---
Date of Encounter: 02/26/19 Time of Encounter: 23:42 Internal Medicine - H&P: HPI Chief complaint: SOB History of present illness: Mr. Hernandez is a 58 year old male with PMH of COPD on 2L home O2, coronary artery disease, GERD, hypertension, kidney stones, myocardial infarction who presented with progressive worsening shortness of breath associated productive cough and runny nose. The Patient is denying chest pain , orthopnea, and progressive worsening of lower extremity edema. The patient was evaluated by the ER staff and CXR revealed no acute cardiopulmonary abnormality however there was evidence of severe emphysema, the patient was treated with inhalers and antibiotics. There was no Solu-Medrol administered due to the fact that the patient received Decadron while in his way to the ER. he was admitted for further evaluation and management of COPD exacerbation. Past Med Surg Social Fam HX - Past Medical History Medical history: COPD, coronary artery disease, GERD, hypertension, kidney stones, myocardial infarction Additional medical history: BPH, Chronic hypoxic resp failure Psychiatric history: no psych history - Past Surgical History Surgical History: ureteral stent Additional surgical history: kidney stent,l heart cath - Social History Smoking Status: Current every day smoker Smokeless Tobacco Status: No Alcohol use: rarely Drug use: none - Family History Mother Living Status: Hx Family Respiratory Disorders: Yes (LOBECTOMY,) Father Living Status: Hx Family Cardiac Disorders: Yes Internal Medicine - H&P: Meds Albuterol Neb [Proventil Neb] 2.5 mg IH Q6H PRN 04/25/18 [History] Albuterol Sulfate [Proair Hfa] 1 puff IH Q4H PRN 04/25/18 [History] Aspirin [Lo-Dose Aspirin EC] 81 mg PO DAILY 04/25/18 [History] Atorvastatin Calcium [Lipitor] 40 mg PO HS 04/25/18 [History] Baclofen 20 mg PO BID 04/25/18 [History] Budesonide/Formoterol 160/4.5 [Symbicort 160/4.5] 2 puff IH BIDR 04/25/18 [History] Cilostazol 50 mg PO BID 04/25/18 [History] Escitalopram [Lexapro] 20 mg PO DAILY 04/25/18 [History] Lisinopril 2.5 mg PO DAILY 04/25/18 [History] Metoprolol Succinate [Toprol Xl] 25 mg PO DAILY 04/25/18 [History] Nicotine Patch [Nicoderm] 21 mg TD DAILY 04/25/18 [History] Nitroglycerin [Nitrostat] 0.4 mg SL Q5M PRN 04/25/18 [History] Omeprazole [PriLOSEC] 40 mg PO DAILY 04/25/18 [History] Oxygen 2 l NS HS 04/25/18 [History] Primidone [Mysoline] 50 mg PO BID 04/25/18 [History] Roflumilast [Daliresp] 500 mcg PO DAILY 04/25/18 [History] Tamsulosin [Flomax] 0.4 mg PO DAILY 04/25/18 [History] Tiotropium [Spiriva] 18 mcg IH 0700 04/25/18 [History] hydrOXYzine HCl [Hydroxyzine HCl] 25 mg PO HS PRN 04/25/18 [History] Isosorbide MONOnitrate (24 HR) [Imdur] 120 mg PO DAILY 09/30/18 [History] Acetylcysteine [Nac] 1 cap PO DAILY 02/26/19 [History] GuaiFENesin ER [Mucinex] 600 mg PO BID 02/26/19 [History] Allergy/AdvReac Type Severity Reaction Status Date / Time No Known Allergies Allergy Verified 02/26/19 21:54 All Systems PM: A 10-system review of systems was performed and is negative for pertinent findings except as documented above in the HPI. - Constitutional Vitals: Temp Pulse Resp BP Pulse Ox 97.5 F L 91 20 124/77 96 02/26/19 22:01 02/26/19 23:00 02/26/19 23:00 02/26/19 23:00 02/26/19 23:00 General appearance: Present: A&O X 3 - Head Head exam: Present: atraumatic, normocephalic - Neck Neck exam general surgery: Present: supple, trachea midline. Absent: lymphadenopathy - Respiratory Respiratory exam: Present: rhonchi, wheezes. Absent: accessory muscle use, rales - Cardiovascular Cardiovascular exam: Present: RRR, +S1, +S2. Absent: diastolic murmur, gallop, rubs, systolic murmur - GI/Abdominal GI/Abdominal exam: Present: normal bowel sounds, soft, no peritoneal signs. Absent: distended, tenderness - Extremities Exam Extremities exam: Present: warm, radial pulses palpable and symmetrical. Absent: calf tenderness, cyanotic, pedal edema Internal Med - H&P Results - Labs CBC & Chem 7: 02/27/19 03:34 02/27/19 03:34 Labs: Short CBC 02/26/19 Range/Units 21:50 WBC 8.6 (4.3-11.1) K/mcL Hgb 14.6 (12.9-16.9) g/dL Hct 44.3 (37.5-50.1) % Plt Count 220 (140-400) K/mcL Neutrophils # 6.2 (1.6-8.9) K/mcL BMP 02/26/19 21:50 Sodium 138 Potassium 4.5 Chloride 102 Carbon Dioxide 29 BUN 14 Creatinine 0.85 Glucose 111 H Calcium 9.1 Cardiac Enzymes 02/26/19 Range/Units 21:50 Troponin I < 0.03 (< 0.04) ng/mL - ABG Interpretation ABG results: 02/26/19 22:07 VBG pH 7.30 L VBG pCO2 63 H VBG pO2 69 H VBG HCO3 31 H - Impressions ITS Impressions Chest X-Ray 02/26/19 21:48 IMPRESSION: 1. No acute cardiopulmonary abnormality. 2. Severe emphysema. D/ / Guillermo Mora / Guillermo Mora Interpreting Provider: Guillermo Mora - Assessment and Plan (1) Acute exacerbation of chronic obstructive airways disease Current Visit: Yes Status: Acute Assessment and plan: SOB due to * COPD exacerbation caused by URTI VS allergen exposure VS medication nonocompliance *Bronchitis *Pneumonia - no infiltrate on CXR PLAN: - Aerosols q 4 hr and PRN SOB - Solu-medrol 40 mg IV q 6 hr - O2 to keep SpO2 higher than 92% (SpO higher than 95% if CAD) - CBCD, BMP in AM - Sputum Gram stain, C+S - Tylenol 650 mg PO q 4-6 hr PRN pain/fever - Azithromycine 500 daily (2) History of UT (myocardial infarction) Current Visit: No Status: Chronic Assessment and plan: The patient denies any chest pain, EKG revealed no significant ischemic ST-T wave changes, first set of troponin was negative. (3) CAD (coronary artery disease) Current Visit: No Status: Chronic Assessment and plan: We will continue home medication. Qualifiers: Coronary Disease-Associated Artery/Lesion type: [place] artery [place] vs. transplanted heart: [place] heart Associated angina: without angina Qualified Code(s): I25.10 - Atherosclerotic heart disease of [place] coronary artery without angina pectoris (4) HTN (hypertension) Current Visit: No Status: Chronic Assessment and plan: We will continue home antihypertensive regimen, continue to monitor blood pressure while inpatient and adjust regimen accordingly Qualifiers: Hypertension type: essential hypertension Qualified Code(s): I10 - Essential (primary) hypertension (5) GERD (gastroesophageal reflux disease) Current Visit: No Status: Chronic Assessment and plan: We will continue home proton pump inhibitor Qualifiers: Esophagitis presence: esophagitis presence not specified Qualified Code(s): K21.9 - Gastro-esophageal reflux disease without esophagitis (6) Hyperlipemia Current Visit: No Status: Chronic Assessment and plan: We will continue home statin and obtain fasting lipid profile in a.m. Qualifiers: Hyperlipidemia type: mixed hyperlipidemia Qualified Code(s): E78.2 - Mixed hyperlipidemia (7) BPH (benign prostatic hyperplasia) Current Visit: No Status: Chronic Qualifiers: Lower urinary tract symptom presence: symptoms absent Qualified Code(s): N40.0 - Benign prostatic hyperplasia without lower urinary tract symptoms (8) Tobacco abuse Current Visit: No Status: Chronic - Time Spent With Patient Total time spent is greater than 50% in coordination of care (as documented) at patient's floor/unit and/or counseling patient:
[2019-02-26] MEDS ORDERED: Naloxone 0.4 MG/ML INJ IVP PRN (23:44)
[2019-02-26] MEDS ORDERED: Ondansetron 4 MG/2 ML VIAL IVP PRN (23:44)
[2019-02-26] MEDS ORDERED: *HR* HYDROcodone/Acet 5/325 mg TABLET PO PRN (23:44)
[2019-02-26] MEDS ORDERED: Acetaminophen 325 MG TABLET PO PRN (23:44)
[2019-02-27] MEDS ORDERED: Nitroglycerin 0.4 MG TAB.SUBL SL PRN (00:33)
[2019-02-27] MEDS ORDERED: hydrOXYzine pamoate 25 MG CAPSULE PO PRN (00:33)
[2019-02-27] MEDS ORDERED: Albuterol 2.5 MG/3 ML NEBULIZER IH PRN (00:33)
[2019-02-27] MEDS: MethylPREDNISolone 40 MG/ML VIAL IVP SCH ×3 (01:24→16:18)
[2019-02-27] MEDS: Ipratropium/Albuterol Neb 3 ML IH SCH ×4 (03:19→22:25)
[2019-02-27 04:22] LABS: Basophils % 0.2 %; Eosinophils % 0.2 %; Hematocrit 40.1 % (37.5-50.1); Hemoglobin 13.2 g/dL (12.9-16.9); Immature Granulocytes % 0.4 % (0-4); Lymphocytes # 0.5 K/mcL (0.6-4.6); Lymphocytes % 10.9 %; Mean Corpuscular HGB Conc 32.9 g/dL (31.6-35.5); Mean Corpuscular Hemoglobin 31.4 pg (28.0-33.3); Mean Corpuscular Volume 95.2 fL (83.0-100.0); Mean Platelet Volume 10.1 fL (9.4-12.4); Monocytes # 0.1 K/mcL (0.0-1.3); Monocytes % 1.4 %; Neutrophils # 4.2 K/mcL (1.6-8.9); Platelet Count 216 K/mcL (140-400); Red Blood Count 4.21 M/mcL (4.19-5.50); Red Cell Distribution Width 12.9 % (11.5-14.5); Segmented Neutrophils % 86.9 %; White Blood Count 4.9 K/mcL (4.3-11.1)
[2019-02-27 04:32] LABS: INR 1.1; Prothrombin Time 12.1 Seconds (9.4-12.1)
[2019-02-27 04:34] LABS: Activated Partial Thrombo Time 31.2 Seconds (26.0-36.0)
[2019-02-27 04:45] LABS: Alanine Aminotransferase 19 Units/L (7-52); Albumin 3.9 g/dL (3.5-5.7); Albumin/Globulin Ratio 1.9 (1.1-2.2); Alkaline Phosphatase 77 Units/L (34-104); Aspartate Amino Transferase 24 Units/L (13-39); Bilirubin,Total 0.4 mg/dL (0.3-1.0); Blood Urea Nitrogen 13 mg/dL (6-20); Carbon Dioxide 28 mEq/L (23-29); Chloride 102 mEq/L (98-107); Chol/HDL Ratio 2.6 (0-4.9); Cholesterol 119 mg/dL (< 200); Globulin 2.1 g/dL (2.4-3.5); Glucose 186 mg/dL (70-105); HDL Cholesterol 46 mg/dL (40-59); LDL Cholesterol,Calculated 67 mg/dL (0-99); Magnesium 1.8 mg/dL (1.6-2.6); Osmolality,Calculated 289 (280-300); Phosphorous 2.5 mg/dL (2.7-4.5); Potassium 4.1 mEq/L (3.5-5.1); Sodium 137 mEq/L (136-145); Triglycerides 31 mg/dL (< 150)
[2019-02-27 05:01] LABS: BUN/Creatinine Ratio 19 (6-26); eGFR For African Americans > 60 (> 60); eGFR For Non-African Americans > 60 (> 60)
[2019-02-27] MEDS: Aspirin Enteric Coated 81 MG Tablet PO SCH (08:41)
[2019-02-27] MEDS: Nicotine 21 MG PATCH.TD24 TD SCH (08:43)
[2019-02-27] MEDS: Metoprolol XL (24 HR) Succ 25 MG TAB.ER.24H PO SCH (08:43)
[2019-02-27] MEDS: Isosorbide MONOnitrate (24 HR) 60 MG TAB.ER.24H PO SCH (08:43)
[2019-02-27] MEDS: Baclofen 10 MG TABLET PO SCH ×2 (08:43→20:10)
[2019-02-27] MEDS: Primidone 50 MG TABLET PO SCH ×2 (08:49→20:10)
[2019-02-27] MEDS: (Roflumilast [Daliresp] 500 MCG) PO SCH (08:50)
[2019-02-27] MEDS ORDERED: ACETYLCYSTEINE PO SCH (09:00)
[2019-02-27] MEDS: Tiotropium 18 MCG inhalation IH SCH (09:45)
[2019-02-27] MEDS: Budesonide/Formoterol 160/4.5 1 PUFF INH IH SCH ×2 (09:45→22:25)
--- NOTE | 2019-02-27 13:22 | Internal Med Progress Note ---
Hospitalist Progress Note - Encounter Date of Encounter: 02/27/19 Time of Encounter: 10:45 - Subjective Interval History: Mr. Hernandez is a 58 year old male with PMH of COPD on 2L home O2, coronary artery disease, GERD, hypertension, kidney stones, myocardial infarction and chronic tobacco dependence pt presented to ER with progressively worsening shor tness of breath associated productive cough and expectoration. He did have sick contact, his and grand kid were sick with flu like symptoms. He was admitted in the hospital and started him ob systemic steroids, duoneb and O2. Pt stated he is feeling little better today. However still has severe cough with expectoration. - Exam Vitals: Temp Pulse Resp BP Pulse Ox 97.5 F L 99 18 121/78 92 02/27/19 11:28 02/27/19 11:28 02/27/19 11:28 02/27/19 11:28 02/27/19 11:28 Exam: Gen: Alert, awake, Oriented to time,place and person Chest: Diminished breath sounds B/L, moderate wheezing, No crackles, No rales Heart: S1S2+ RRR No murmurs Abd: Soft, NT, BS +, No organomegaly Ext: No edema, pulses are palpable, No calf tenderness Neuro : No acute focal neuro deficits noticed Skin: No rash. - Assessment and Plan (1) Acute exacerbation of chronic obstructive airways disease Current Visit: Yes Status: Acute Assessment and Plan: Slowly imporving triggered by acute purulent bronchitis start tapering systemic steroids cont frequent bronchodilator therapy cont on o2 at 2 lit Cont Symbicort cont empirical abx Rocephin + Azithromycin (2) Acute bronchitis Current Visit: Yes Status: Acute Assessment and Plan: will check resp viral panel he does have purulent bronchitis - mostly bacterial will f/u on sputum cx cont empirical abx Rocephin + Azithro (3) Chronic respiratory failure with hypoxia Current Visit: Yes Status: Chronic (4) History of NM (myocardial infarction) Current Visit: No Status: Chronic Assessment and Plan: Denied any cp cont home meds (5) Tobacco abuse Current Visit: No Status: Chronic Assessment and Plan: Counseled to quit smoking placed on nicotine patch (6) HTN (hypertension) Current Visit: No Status: Chronic Assessment and Plan: resumed home meds well controlled BP (7) GERD (gastroesophageal reflux disease) Current Visit: No Status: Chronic Assessment and Plan: on PPI (8) Hyperlipemia Current Visit: No Status: Chronic Assessment and Plan: on Statin (9) BPH (benign prostatic hyperplasia) Current Visit: No Status: Chronic - Time Spent with Patient Total time spent is greater than 50% in coordination of care (as documented) at patient's floor/unit and/or counseling patient: Internal Medicine: Result - Labs CBC & Chem 7: 02/27/19 03:34 02/27/19 03:34 Labs: Short CBC 02/26/19 02/27/19 Range/Units 21:50 03:34 WBC 8.6 4.9 (4.3-11.1) K/mcL Hgb 14.6 13.2 (12.9-16.9) g/dL Hct 44.3 40.1 (37.5-50.1) % Plt Count 220 216 (140-400) K/mcL Neutrophils # 6.2 4.2 (1.6-8.9) K/mcL BMP 02/26/19 02/27/19 21:50 03:34 Sodium 138 137 Potassium 4.5 4.1 Chloride 102 102 Carbon Dioxide 29 28 BUN 14 13 Creatinine 0.85 0.68 L Glucose 111 H 186 H Calcium 9.1 9.0 Cardiac Enzymes 02/26/19 Range/Units 21:50 Troponin I < 0.03 (< 0.04) ng/mL Liver Function 02/27/19 Range/Units 03:34 Total Bilirubin 0.4 (0.3-1.0) mg/dL AST 24 (13-39) Units/L ALT 19 (7-52) Units/L Alkaline Phosphatase 77 (34-104) Units/L Albumin 3.9 (3.5-5.7) g/dL - ABG Interpretation ABG results: PT/INR, D-dimer PT 12.1 Seconds (9.4-12.1) 02/27/19 03:34 - Impressions Impressions Chest X-Ray 02/26/19 21:48 IMPRESSION: 1. No acute cardiopulmonary abnormality. 2. Severe emphysema. D/ / Guillermo Mora / Guillermo Mora Interpreting Provider: Guillermo Mora Consult Discharge Plan - Plan Referrals: Mary Lou Rojo SOFTWARE TEST ANALYST [Advanced Practice Nurse] - 04/07/19 10:30 am (6) HTN (hypertension) Qualifiers: Hypertension type: essential hypertension Qualified Code(s): I10 - Essential (primary) hypertension (7) GERD (gastroesophageal reflux disease) Qualifiers: Esophagitis presence: esophagitis presence not specified Qualified Code(s): K21.9 - Gastro-esophageal reflux disease without esophagitis (8) Hyperlipemia Qualifiers: Hyperlipidemia type: mixed hyperlipidemia Qualified Code(s): E78.2 - Mixed hyperlipidemia (9) BPH (benign prostatic hyperplasia) Qualifiers: Lower urinary tract symptom presence: symptoms absent Qualified Code(s): N40.0 - Benign prostatic hyperplasia without lower urinary tract symptoms
--- NOTE | 2019-02-27 15:26 | Electrocardiograph Report ---
[address] [place], [place] [address] Test Date: 2019-02-26 Pat Name: Nik Hernandez Department: [id number] Room: 3B38 Gender: M [employer] Plant Superintendent: : [id number] Requested By: Alejandro Herzog Order Number: [id number] Reading MD: Kiley Boles Measurements Intervals [place] Rate: 90 P: 87 VT: 131 QRS: 92 QRSD: 90 T: 80 QT: 331 QTc: 408 Interpretive Statements Sinus rhythm Respiratory artifact Electronically Signed On 02-27-2019 15:24:26 EDT by Kiley Boles
[2019-02-27] MEDS: cefTRIAXone 1,000 MG in Water for inj. (sterile) 10 ML IVP SCH (16:18)
[2019-02-27] MEDS: Azithromycin 500 MG in D5% in Water 250 ML IVPB SCH (20:09)
[2019-02-28] MEDS: Ipratropium/Albuterol Neb 3 ML IH SCH ×4 (03:38→22:48)
[2019-02-28] MEDS: MethylPREDNISolone 40 MG/ML VIAL IVP SCH ×3 (06:11→23:48)
[2019-02-28] MEDS ORDERED: *HR* Acetylcysteine 20% 600 MG/3 ML ORAL SYRINGE PO SCH (09:00)
[2019-02-28] MEDS: Tiotropium 18 MCG inhalation IH SCH (10:02)
[2019-02-28] MEDS: Nicotine 21 MG PATCH.TD24 TD SCH (10:03)
[2019-02-28] MEDS: Baclofen 10 MG TABLET PO SCH ×2 (10:03→20:39)
[2019-02-28] MEDS: Isosorbide MONOnitrate (24 HR) 60 MG TAB.ER.24H PO SCH (10:03)
[2019-02-28] MEDS: Aspirin Enteric Coated 81 MG Tablet PO SCH (10:03)
[2019-02-28] MEDS: Metoprolol XL (24 HR) Succ 25 MG TAB.ER.24H PO SCH (10:04)
[2019-02-28] MEDS: Primidone 50 MG TABLET PO SCH ×2 (10:04→20:38)
[2019-02-28] MEDS: (Roflumilast [Daliresp] 500 MCG) PO SCH (10:04)
[2019-02-28] MEDS: cefTRIAXone 1,000 MG in Water for inj. (sterile) 10 ML IVP SCH (10:04)
[2019-02-28] MEDS: Budesonide/Formoterol 160/4.5 1 PUFF INH IH SCH ×2 (10:26→22:46)
--- NOTE | 2019-02-28 11:40 | Internal Med Progress Note ---
Hospitalist Progress Note - Encounter Date of Encounter: 02/28/19 Time of Encounter: 11:36 - Subjective Interval History: Patient was seen and examined at bedside He states that he cont to have shortness of breath on exertion more than he normally does at home. He still feels as if he is not ready to go home We will continue to have patient ambulate per nursing staff and monitor SPO2 - Exam Vitals: Temp Pulse Resp BP Pulse Ox 97.4 F L 88 16 156/73 96 02/28/19 07:02 02/28/19 07:02 02/28/19 10:28 02/28/19 07:02 02/28/19 10:28 Exam: Gen: Alert, awake, Oriented to time,place and person Chest: Diminished breath sounds B/L, moderate wheezing, No crackles, No rales Heart: S1S2+ RRR No murmurs Abd: Soft, NT, BS +, No organomegaly Ext: No edema, pulses are palpable, No calf tenderness Neuro : No acute focal neuro deficits noticed Skin: No rash. - Assessment and Plan (1) Acute exacerbation of chronic obstructive airways disease Current Visit: Yes Status: Acute Assessment and Plan: Slowly imporving triggered by acute purulent bronchitis Continue systemic steroids cont frequent bronchodilator therapy cont on o2 at 2 lit Cont Symbicort cont empirical abx Rocephin + Azithromycin (2) History of [place] (myocardial infarction) Current Visit: No Status: Chronic Assessment and Plan: Denied any cp cont home meds (3) Tobacco abuse Current Visit: No Status: Chronic Assessment and Plan: Counseled to quit smoking placed on nicotine patch (4) HTN (hypertension) Current Visit: No Status: Chronic Assessment and Plan: resumed home meds well controlled BP (5) GERD (gastroesophageal reflux disease) Current Visit: No Status: Chronic Assessment and Plan: on PPI (6) Hyperlipemia Current Visit: No Status: Chronic Assessment and Plan: on Statin (7) BPH (benign prostatic hyperplasia) Current Visit: No Status: Chronic (8) Acute bronchitis Current Visit: Yes Status: Acute Assessment and Plan: will check resp viral panel he does have purulent bronchitis - mostly bacterial will f/u on sputum cx cont empirical abx Rocephin + Azithro (9) Chronic respiratory failure with hypoxia Current Visit: Yes Status: Chronic Assessment and Plan: Secondary to COPD exacerbation-continue with oxygen as well as steroid and bronchodilators - Time Spent with Patient Total time spent is greater than 50% in coordination of care (as documented) at patient's floor/unit and/or counseling patient: Internal Medicine: Result - Labs CBC & Chem 7: 02/27/19 03:34 02/27/19 03:34 - ABG Interpretation ABG results: PT/INR, D-dimer PT 12.1 Seconds (9.4-12.1) 02/27/19 03:34 Consult Discharge Plan - Plan Referrals: Mary Lou Rojo [employer] [Advanced Practice Nurse] - 04/07/19 10:30 am (4) HTN (hypertension) Qualifiers: Hypertension type: essential hypertension Qualified Code(s): I10 - Essential (primary) hypertension (5) GERD (gastroesophageal reflux disease) Qualifiers: Esophagitis presence: esophagitis presence not specified Qualified Code(s): K21.9 - Gastro-esophageal reflux disease without esophagitis (6) Hyperlipemia Qualifiers: Hyperlipidemia type: mixed hyperlipidemia Qualified Code(s): E78.2 - Mixed hyperlipidemia (7) BPH (benign prostatic hyperplasia) Qualifiers: Lower urinary tract symptom presence: symptoms absent Qualified Code(s): N40.0 - Benign prostatic hyperplasia without lower urinary tract symptoms
[2019-02-28] MEDS: *HR* Acetylcysteine 20% 600 MG/3 ML ORAL SYRINGE PO SCH (13:55)
[2019-02-28 16:14] LABS: Adenovirus Not Detected (Not Detect); Bordetella Pertussis Not Detected (Not Detect); Chlamydophila pneumoniae Not Detected (Not Detect); Coronavirus 229E Not Detected (Not Detect); Coronavirus HKU1 Not Detected (Not Detect); Coronavirus NL63 Not Detected (Not Detect); Coronavirus OC43 Not Detected (Not Detect); Human Metapneumovirus Not Detected (Not Detect); Human Rhinovirus/Enterovirus DETECTED (Not Detect); Influenza A Subtype 2009 H1 Not Detected (Not Detect); Influenza A Untypeable Not Detected (Not Detect); Influenza B Not Detected (Not Detect); Mycoplasma pneumoniae Not Detected (Not Detect); Parainfluenza Virus 1 Not Detected (Not Detect); Parainfluenza Virus 2 Not Detected (Not Detect); Parainfluenza Virus 3 Not Detected (Not Detect); Parainfluenza Virus 4 Not Detected (Not Detect); Respiratory Syncytial Virus Not Detected (Not Detect)
[2019-02-28] MEDS: Azithromycin 500 MG in D5% in Water 250 ML IVPB SCH (20:40)
[2019-03-01] MEDS: Ipratropium/Albuterol Neb 3 ML IH SCH ×3 (04:10→16:18)
[2019-03-01] MEDS: MethylPREDNISolone 40 MG/ML VIAL IVP SCH (06:16)
[2019-03-01] MEDS: Nicotine 21 MG PATCH.TD24 TD SCH (08:12)
[2019-03-01] MEDS: Baclofen 10 MG TABLET PO SCH (08:12)
[2019-03-01] MEDS: *HR* Acetylcysteine 20% 600 MG/3 ML ORAL SYRINGE PO SCH (08:12)
[2019-03-01] MEDS: Isosorbide MONOnitrate (24 HR) 60 MG TAB.ER.24H PO SCH (08:12)
[2019-03-01] MEDS: Metoprolol XL (24 HR) Succ 25 MG TAB.ER.24H PO SCH (08:13)
[2019-03-01] MEDS: cefTRIAXone 1,000 MG in Water for inj. (sterile) 10 ML IVP SCH (08:13)
[2019-03-01] MEDS: Primidone 50 MG TABLET PO SCH (08:13)
[2019-03-01] MEDS: Aspirin Enteric Coated 81 MG Tablet PO SCH (08:13)
[2019-03-01] MEDS: (Roflumilast [Daliresp] 500 MCG) PO SCH (08:14)
[2019-03-01] MEDS: Tiotropium 18 MCG inhalation IH SCH (08:15)
[2019-03-01] MEDS: Budesonide/Formoterol 160/4.5 1 PUFF INH IH SCH (09:32)
--- NOTE | 2019-03-01 11:15 | Discharge Summary ---
- NOTES TO OUTPATIENT PROVIDER Notes to Outpatient Provider: COPD exacerbation-steroid mvyzq-kbrtqknzgjte-scjgvscln treatments-nicotine patch Date of Encounter: 03/01/19 Time of Encounter: 11:12 - Discharge Diagnosis (1) Acute exacerbation of chronic obstructive airways disease Priority: Primary Status: Acute (2) History of [place] (myocardial infarction) Priority: Secondary Status: Chronic (3) Tobacco abuse Priority: Secondary Status: Chronic (4) HTN (hypertension) Priority: Secondary Status: Chronic Qualifiers: Hypertension type: essential hypertension Qualified Code(s): I10 - Essential (primary) hypertension (5) GERD (gastroesophageal reflux disease) Priority: Secondary Status: Chronic Qualifiers: Esophagitis presence: esophagitis presence not specified Qualified Code(s): K21.9 - Gastro-esophageal reflux disease without esophagitis (6) Hyperlipemia Priority: Secondary Status: Chronic Qualifiers: Hyperlipidemia type: mixed hyperlipidemia Qualified Code(s): E78.2 - Mixed hyperlipidemia (7) BPH (benign prostatic hyperplasia) Priority: Secondary Status: Chronic Qualifiers: Lower urinary tract symptom presence: symptoms absent Qualified Code(s): N40.0 - Benign prostatic hyperplasia without lower urinary tract symptoms (8) Acute bronchitis Priority: Secondary Status: Acute Qualifiers: Bronchitis organism: unspecified organism Qualified Code(s): J20.9 - Acute bronchitis, unspecified (9) Chronic respiratory failure with hypoxia Priority: Secondary Status: Chronic Hospital course: Mr. Hernandez is a 58 year old male past medical history of COPD oxygen dependent coronary artery disease GERD hypertension kidney since myocardial infarction presented to [facility] with progressively worsening shortness of breath w ith associated symptoms of productive cough and runny nose. Chest x-ray revealed no acute cardiopulmonary abnormalities evidence of severe emphysema patient was admitted and was treated with antibiotics and inhalers and IV steroids respiratory panel did reveal Entero/rhino -patient's respiratory state improve-feels as if his back to his baseline. We did discuss smoking cessation requesting nicotine patch. Patient will be discharged home with prescription for steroid taper azithromycin nicotine patch he will follow-up with his primary care provider. Patient voiced understanding he is hemodynamically stable at this time and ready for discharge. - Time Spent with Patient Total time spent providing and/or coordinating discharge services: - Discharge Medications Prescriptions: New Azithromycin 250 mg PO DAILY #3 tablet predniSONE [PredniSONE] 10 mg PO DAILY #30 tablet Continued Tiotropium [Spiriva] 18 mcg IH 0700 Tamsulosin [Flomax] 0.4 mg PO DAILY Primidone [Mysoline] 50 mg PO BID Oxygen 2 l NS HS Omeprazole [PriLOSEC] 40 mg PO DAILY Nitroglycerin [Nitrostat] 0.4 mg SL Q5M PRN PRN Reason: Chest Pain Metoprolol Succinate [Toprol Xl] 25 mg PO DAILY Lisinopril 2.5 mg PO DAILY hydrOXYzine HCl [Hydroxyzine HCl] 25 mg PO HS PRN PRN Reason: Anxiety Escitalopram [Lexapro] 20 mg PO DAILY Cilostazol 50 mg PO BID Budesonide/Formoterol 160/4.5 [Symbicort 160/4.5] 2 puff IH BIDR Baclofen 20 mg PO BID Atorvastatin Calcium [Lipitor] 40 mg PO HS Aspirin [Lo-Dose Aspirin EC] 81 mg PO DAILY Albuterol Neb [Proventil Neb] 2.5 mg IH Q6H PRN PRN Reason: Shortness Of Breath Albuterol Sulfate [Proair Hfa] 1 puff IH Q4H PRN PRN Reason: Shortness Of Breath Roflumilast [Daliresp] 500 mcg PO DAILY Isosorbide MONOnitrate (24 HR) [Imdur] 120 mg PO DAILY GuaiFENesin ER [Mucinex] 600 mg PO BID Acetylcysteine 20% 600 mg PO DAILY Nicotine Patch [Nicoderm] 21 mg TD DAILY #24 patch.td24 Home Medications: Albuterol Neb [Proventil Neb] 2.5 mg IH Q6H PRN 04/25/18 [History] Albuterol Sulfate [Proair Hfa] 1 puff IH Q4H PRN 04/25/18 [History] Aspirin [Lo-Dose Aspirin EC] 81 mg PO DAILY 04/25/18 [History] Atorvastatin Calcium [Lipitor] 40 mg PO HS 04/25/18 [History] Baclofen 20 mg PO BID 04/25/18 [History] Budesonide/Formoterol 160/4.5 [Symbicort 160/4.5] 2 puff IH BIDR 04/25/18 [History] Cilostazol 50 mg PO BID 04/25/18 [History] Escitalopram [Lexapro] 20 mg PO DAILY 04/25/18 [History] Lisinopril 2.5 mg PO DAILY 04/25/18 [History] Metoprolol Succinate [Toprol Xl] 25 mg PO DAILY 04/25/18 [History] Nitroglycerin [Nitrostat] 0.4 mg SL Q5M PRN 04/25/18 [History] Omeprazole [PriLOSEC] 40 mg PO DAILY 04/25/18 [History] Oxygen 2 l NS HS 04/25/18 [History] Primidone [Mysoline] 50 mg PO BID 04/25/18 [History] Roflumilast [Daliresp] 500 mcg PO DAILY 04/25/18 [History] Tamsulosin [Flomax] 0.4 mg PO DAILY 04/25/18 [History] Tiotropium [Spiriva] 18 mcg IH 0700 04/25/18 [History] hydrOXYzine HCl [Hydroxyzine HCl] 25 mg PO HS PRN 04/25/18 [History] Isosorbide MONOnitrate (24 HR) [Imdur] 120 mg PO DAILY 09/30/18 [History] GuaiFENesin ER [Mucinex] 600 mg PO BID 02/26/19 [History] Acetylcysteine 20% 600 mg PO DAILY 02/28/19 [History] Azithromycin 250 mg PO DAILY #3 tablet 03/01/19 [Rx] Nicotine Patch [Nicoderm] 21 mg TD DAILY #24 patch.td24 03/01/19 [Rx] predniSONE [PredniSONE] 10 mg PO DAILY #30 tablet 03/01/19 [Rx] Allergies/Adverse Reactions: Allergy/AdvReac Type Severity Reaction Status Date / Time No Known Allergies Allergy Verified 02/26/19 21:54 Date of admission: 02/26/19 23:43 Primary care physician: PCP NONE Consults: 02/26/19 23:42 Consult to Nurse Navigator [CONS] Routine Comment: Discharging clinician: Bri Vásquez Anticipated date of discharge: 03/01/19 - Constitutional Vitals: Temp Pulse Resp BP Pulse Ox 97.5 F L 72 18 143/69 95 03/01/19 07:39 03/01/19 07:39 03/01/19 09:35 03/01/19 07:39 03/01/19 09:35 General appearance: Present: A&O X 3 Exam: Gen: Alert, awake, Oriented to time,place and person Chest: Diminished breath sounds B/L, faint wheezing, No crackles, No rales Heart: S1S2+ RRR No murmurs Abd: Soft, NT, BS +, No organomegaly Ext: No edema, pulses are palpable, No calf tenderness Neuro : No acute focal neuro deficits noticed Skin: No rash. - Patient Status Disposition: Home, Self-Care Condition: Fair Functional capacity at discharge: independent ambulation Overall status at discharge: patient is back to baseline - Discharge Instructions Follow Up With: Mary Lou Rojo [employer] [Advanced Practice Nurse] - 04/07/19 10:30 am - Diet and Activity Activity: increase activity as tolerated Diet: advance to your usual diet
[2019-03-01 11:28] VITALS: BP 113/60
== END 2019-03-01 16:24 | disposition home or self-care (01) ==
LOC: EMEROOARM 21:38 → 3BNU 21:38 → SUATTDRO 23:43 → 3BNU 02-27
PROVIDERS: ADMIT Internal Medicine; ATTEND Family Medicine

== ENCOUNTER 2019-11-09 05:00 | Observation (INO) ==
[2019-11-09] MEDS ORDERED: Naloxone 0.4 MG/ML INJ IVP PRN (07:56)
[2019-11-09] MEDS ORDERED: Ondansetron 4 MG/2 ML VIAL IVP PRN (07:56)
[2019-11-09] MEDS ORDERED: Nitroglycerin 0.4 MG TAB.SUBL SL PRN (08:42)
[2019-11-09] MEDS: Ipratropium/Albuterol Neb 3 ML IH SCH ×3 (10:23→21:52)
[2019-11-09] MEDS: Isosorbide MONOnitrate (24 HR) 60 MG TAB.ER.24H PO SCH (11:34)
[2019-11-09] MEDS: lisinopriL 5 MG TABLET PO SCH (11:34)
[2019-11-09] MEDS: Aspirin Enteric Coated 81 MG Tablet PO SCH (11:35)
[2019-11-09] MEDS: Metoprolol XL (24 HR) Succ 25 MG TAB.ER.24H PO SCH (11:35)
[2019-11-09] MEDS: cilostazoL 100 MG TABLET PO SCH ×2 (11:37→20:47)
[2019-11-09] MEDS: Baclofen 10 MG TABLET PO SCH ×2 (11:37→20:47)
[2019-11-09] MEDS: MethylPREDNISolone 40 MG/ML VIAL IVP SCH ×2 (11:37→17:27)
[2019-11-09] MEDS: 0.9 % Sodium Chloride 1,000 ML IVC SCH (11:38)
[2019-11-09] MEDS: cefTRIAXone 1,000 MG in Water for inj. (sterile) 10 ML IVP SCH (11:38)
[2019-11-09 11:47] LABS: Bilirubin,Urine Negative (Negative); Blood,Urine Large (Negative); Clarity,Urine Cloudy (Clear); Color,Urine Dark Yellow (Yellow); Glucose,Urine (UA) Normal (Normal); Ketones,Urine Negative (Negative); Leukocyte Esterase,Urine Small (Negative); Nitrite,Urine Negative (Negative); Protein,Urine 100 mg/dL (Neg-Trace); Specific Gravity,Urine 1.021 (1.010-1.025); Urobilinogen,Urine Normal (Normal)
[2019-11-09] MEDS: Azithromycin 500 MG in 0.9 % Sodium Chloride 250 ML IVPB SCH (11:48)
[2019-11-09 11:49] LABS: Bacteria,Urine None Seen per hpf (None-Few); Hyaline Casts,Urine None Seen per lpf (None-Few); RBC,Urine TNTC per hpf (0-3); Squamous Epithelial Cell,Urine None Seen per lpf (None-Few)
[2019-11-09 12:33] LABS: Yeast,Urine Many per hpf (None Seen)
[2019-11-09] MEDS: *HR* Heparin 5,000 UNIT/ML VIAL SQ SCH ×2 (14:14→20:47)
[2019-11-10] MEDS: MethylPREDNISolone 40 MG/ML VIAL IVP SCH ×2 (01:27→09:18)
[2019-11-10] MEDS: 0.9 % Sodium Chloride 1,000 ML IVC SCH (01:27)
[2019-11-10] MEDS: Ipratropium/Albuterol Neb 3 ML IH SCH ×4 (03:37→22:02)
[2019-11-10] MEDS: *HR* Heparin 5,000 UNIT/ML VIAL SQ SCH ×3 (05:28→21:08)
[2019-11-10 06:21] LABS: Basophils % 0.2 %; Hematocrit 37.9 % (37.5-50.1); Hemoglobin 12.2 g/dL (12.9-16.9); Immature Granulocytes % 0.8 % (0-4); Lymphocytes # 1.2 K/mcL (0.6-4.6); Lymphocytes % 13.4 %; Mean Corpuscular HGB Conc 32.2 g/dL (31.6-35.5); Mean Corpuscular Hemoglobin 30.6 pg (28.0-33.3); Mean Platelet Volume 10.1 fL (9.4-12.4); Monocytes # 0.6 K/mcL (0.0-1.3); Monocytes % 6.4 %; Neutrophils # 7.1 K/mcL (1.6-8.9); Platelet Count 229 K/mcL (140-400); Red Blood Count 3.99 M/mcL (4.19-5.50); Red Cell Distribution Width 13.2 % (11.5-14.5); Segmented Neutrophils % 79.2 %
[2019-11-10 06:41] LABS: BUN/Creatinine Ratio 32 (6-26); Blood Urea Nitrogen 22 mg/dL (6-20); Carbon Dioxide 29 mEq/L (23-29); Chloride 105 mEq/L (98-107); Glucose 125 mg/dL (70-105); Osmolality,Calculated 291 (280-300); Potassium 4.2 mEq/L (3.5-5.1); Sodium 138 mEq/L (136-145); eGFR For African Americans > 60 (> 60); eGFR For Non-African Americans > 60 (> 60)
[2019-11-10] MEDS: Azithromycin 500 MG in 0.9 % Sodium Chloride 250 ML IVPB SCH (09:17)
[2019-11-10] MEDS: cefTRIAXone 1,000 MG in Water for inj. (sterile) 10 ML IVP SCH (09:18)
[2019-11-10] MEDS: lisinopriL 5 MG TABLET PO SCH (09:19)
[2019-11-10] MEDS: cilostazoL 100 MG TABLET PO SCH ×2 (09:19→21:07)
[2019-11-10] MEDS: Baclofen 10 MG TABLET PO SCH ×2 (09:19→21:07)
[2019-11-10] MEDS: Isosorbide MONOnitrate (24 HR) 60 MG TAB.ER.24H PO SCH (09:20)
[2019-11-10] MEDS: Aspirin Enteric Coated 81 MG Tablet PO SCH (09:20)
[2019-11-10] MEDS: Metoprolol XL (24 HR) Succ 25 MG TAB.ER.24H PO SCH (09:20)
[2019-11-10] MEDS ORDERED: Albuterol 2.5 MG/3 ML NEBULIZER IH ONE (12:08)
[2019-11-10] MEDS ORDERED: *HR* HYDROmorphone PF 0.5 MG/0.5 ML SYRINGE IVP PRN (12:09)
[2019-11-10] MEDS ORDERED: *HR* OxyCODONE Immed Rel 5 MG TABLET PO PRN (12:09)
[2019-11-10] MEDS ORDERED: Ondansetron 4 MG/2 ML VIAL IVP ONE (12:09)
[2019-11-10] MEDS ORDERED: *HR* Promethazine 25 MG/ML VIAL IVP PRN (12:09)
[2019-11-10] MEDS ORDERED: Albuterol 2.5 MG/3 ML NEBULIZER ONE (12:09)
[2019-11-10] MEDS ORDERED: *HR* FentaNYL (PF) 100 MCG/2 ML VIAL ONE ×2 (12:34→13:31)
[2019-11-10] MEDS ORDERED: *HR* Midazolam HCl 2 MG/2 ML VIAL ONE (12:34)
[2019-11-10] MEDS ORDERED: *HR* Propofol 200 MG/20 ML VIAL IVP ONE (12:34)
[2019-11-10] MEDS ORDERED: Lidocaine -MPF 2% 2 ML VIAL ONE (12:35)
[2019-11-10] MEDS ORDERED: Dexamethasone 4 MG/ML VIAL ONE (12:35)
[2019-11-10] MEDS ORDERED: EPHEDrine 50 MG/ML VIAL ONE (12:57)
[2019-11-11] MEDS: Ipratropium/Albuterol Neb 3 ML IH SCH ×2 (03:24→09:52)
[2019-11-11] MEDS: *HR* Heparin 5,000 UNIT/ML VIAL SQ SCH (04:34)
[2019-11-11 06:36] VITALS: BP 147/77
[2019-11-11] MEDS: Isosorbide MONOnitrate (24 HR) 60 MG TAB.ER.24H PO SCH (08:16)
[2019-11-11] MEDS: Baclofen 10 MG TABLET PO SCH (08:16)
[2019-11-11] MEDS: lisinopriL 5 MG TABLET PO SCH (08:16)
[2019-11-11] MEDS: Azithromycin 500 MG in 0.9 % Sodium Chloride 250 ML IVPB SCH (08:16)
[2019-11-11] MEDS: Metoprolol XL (24 HR) Succ 25 MG TAB.ER.24H PO SCH (08:16)
[2019-11-11] MEDS: cefTRIAXone 1,000 MG in Water for inj. (sterile) 10 ML IVP SCH (08:16)
[2019-11-11] MEDS: cilostazoL 100 MG TABLET PO SCH (08:16)
[2019-11-11] MEDS ORDERED: Aspirin 81 MG TAB.CHEW PO SCH (09:00)
[2019-11-11] MEDS ORDERED: predniSONE 20 MG TABLET PO SCH (09:00)
== END 2019-11-11 10:16 | disposition home or self-care (01) ==
LOC: 3BNU → SUATTDRO 07:20
PROVIDERS: ADMIT Internal Medicine; ATTEND Family Medicine

== ENCOUNTER 2020-01-21 11:49 | Observation (INO) ==
[2020-01-21] MEDS ORDERED: *HR* HYDROcodone/Acet 5/325 mg TABLET PO ONE ×2 (16:11→16:30)
[2020-01-21] MEDS ORDERED: Naloxone 0.4 MG/ML INJ IVP PRN (16:20)
[2020-01-21] MEDS ORDERED: *HR* HYDROcodone/Acet 5/325 mg TABLET PO PRN (16:20)
[2020-01-21] MEDS ORDERED: Ondansetron 4 MG/2 ML VIAL IVP PRN (16:20)
[2020-01-21] MEDS ORDERED: Dextrose Gel 15 GM/37.5 ML TUBE PO PRN ×2 (16:24)
[2020-01-21] MEDS ORDERED: D5% in Water 1,000 ML IVC PRN (16:24)
[2020-01-21] MEDS ORDERED: *HR* Dextrose 50 % in Water (Syg) 50 ML SYRINGE IVP PRN (16:24)
[2020-01-21] MEDS ORDERED: Nitroglycerin 0.4 MG TAB.SUBL SL PRN (16:26)
[2020-01-21] MEDS ORDERED: D5% in 0.45% NACL 1,000 ML IVC SCH ×2 (16:30→16:31)
[2020-01-21] MEDS ORDERED: Albuterol 2.5 MG/3 ML NEBULIZER IH PRN (16:30)
[2020-01-21 17:02] LABS: Basophils % 0.3 %; Hematocrit 43.4 % (37.5-50.1); Immature Granulocytes % 0.6 % (0-4); Lymphocytes # 0.5 K/mcL (0.6-4.6); Lymphocytes % 7.3 %; Mean Corpuscular HGB Conc 32.3 g/dL (31.6-35.5); Mean Corpuscular Hemoglobin 30.8 pg (28.0-33.3); Mean Corpuscular Volume 95.4 fL (83.0-100.0); Mean Platelet Volume 9.5 fL (9.4-12.4); Monocytes # 0.1 K/mcL (0.0-1.3); Monocytes % 1.4 %; Neutrophils # 6.3 K/mcL (1.6-8.9); Platelet Count 258 K/mcL (140-400); Red Blood Count 4.55 M/mcL (4.19-5.50); Red Cell Distribution Width 12.9 % (11.5-14.5); Segmented Neutrophils % 90.4 %
[2020-01-21 17:06] LABS: Prothrombin Time 11.9 Seconds (9.4-12.1)
[2020-01-21 17:09] LABS: Activated Partial Thrombo Time 35.5 Seconds (26.0-36.0)
[2020-01-21 17:22] LABS: Alanine Aminotransferase 16 Units/L (7-52); Albumin 4.1 g/dL (3.5-5.7); Albumin/Globulin Ratio 1.5 (1.1-2.2); Alkaline Phosphatase 78 Units/L (34-104); Aspartate Amino Transferase 20 Units/L (13-39); BUN/Creatinine Ratio 22 (6-26); Bilirubin,Total 0.4 mg/dL (0.3-1.0); Blood Urea Nitrogen 26 mg/dL (6-20); Calcium 9.5 mg/dL (8.6-10.3); Carbon Dioxide 26 mEq/L (23-29); Chloride 105 mEq/L (98-107); Globulin 2.7 g/dL (2.4-3.5); Glucose 129 mg/dL (70-105); Osmolality,Calculated 292 (280-300); Phosphorous 3.9 mg/dL (2.7-4.5); Potassium 5.2 mEq/L (3.5-5.1); Sodium 138 mEq/L (136-145); Total Protein 6.8 g/dL (6.4-8.9); eGFR For African Americans > 60 (> 60); eGFR For Non-African Americans > 60 (> 60)
[2020-01-21] MEDS: Insulin LISPRO 300 UNITS/3 ML VIAL SQ SCH (18:38)
[2020-01-21] MEDS ORDERED: *HR* HYDROcodone/Acet 5/325 mg TABLET ONE (18:47)
[2020-01-21] MEDS ORDERED: D5% in 0.45% NACL 1,000 ML IVC ONE (18:48)
[2020-01-21] MEDS: Baclofen 10 MG TABLET PO SCH (19:49)
[2020-01-21] MEDS: Doxycycline 100 MG CAPSULE PO SCH (19:49)
[2020-01-21] MEDS: Ipratropium/Albuterol Neb 3 ML IH SCH (20:23)
[2020-01-21] MEDS: Primidone 50 MG TABLET PO SCH (20:52)
[2020-01-21] MEDS: cilostazoL 100 MG TABLET PO SCH (20:53)
[2020-01-21 23:40] LABS: Bilirubin,Urine Negative (Negative); Blood,Urine Large (Negative); Clarity,Urine Clear (Clear); Color,Urine Yellow (Yellow); Glucose,Urine (UA) Normal (Normal); Ketones,Urine Trace mg/dL (Negative); Leukocyte Esterase,Urine Negative (Negative); Nitrite,Urine Negative (Negative); Protein,Urine Trace mg/dL (Neg-Trace); Specific Gravity,Urine > 1.030 (1.010-1.025); Urobilinogen,Urine Normal (Normal)
[2020-01-21 23:42] LABS: Bacteria,Urine None Seen per hpf (None-Few); Hyaline Casts,Urine None Seen per lpf (None-Few); RBC,Urine TNTC per hpf (0-3); Squamous Epithelial Cell,Urine Many per lpf (None-Few)
[2020-01-22] MEDS: Ipratropium/Albuterol Neb 3 ML IH SCH ×7 (00:38→19:56)
[2020-01-22] MEDS: Insulin LISPRO 300 UNITS/3 ML VIAL SQ SCH ×2 (02:01→05:20)
[2020-01-22] MEDS ORDERED: *HR* Propofol 200 MG/20 ML VIAL IVP ONE ×2 (07:24→08:28)
[2020-01-22] MEDS: Primidone 50 MG TABLET PO SCH ×2 (07:50→19:39)
[2020-01-22] MEDS: Doxycycline 100 MG CAPSULE PO SCH ×2 (07:50→19:38)
[2020-01-22] MEDS: Baclofen 10 MG TABLET PO SCH ×2 (07:51→19:39)
[2020-01-22] MEDS: cilostazoL 100 MG TABLET PO SCH ×2 (07:51→19:39)
[2020-01-22] MEDS ORDERED: Isosorbide MONOnitrate (24 HR) 60 MG TAB.ER.24H PO SCH (09:00)
[2020-01-22] MEDS ORDERED: Roflumilast [Daliresp] 500 MCG PO SCH (09:00)
[2020-01-22] MEDS ORDERED: Metoprolol XL (24 HR) Succ 25 MG TAB.ER.24H PO SCH (09:00)
[2020-01-22] MEDS ORDERED: *HR* FentaNYL (PF) 100 MCG/2 ML VIAL ONE ×2 (09:06→10:58)
[2020-01-22] MEDS ORDERED: *HR* Midazolam HCl 2 MG/2 ML VIAL ONE (09:18)
[2020-01-22] MEDS ORDERED: Lidocaine -MPF 2% 2 ML VIAL ONE (09:21)
[2020-01-22] MEDS ORDERED: Dexamethasone 4 MG/ML VIAL ONE (09:21)
[2020-01-22] MEDS ORDERED: Ondansetron 4 MG/2 ML VIAL ONE (09:21)
[2020-01-22] MEDS ORDERED: Acetaminophen IV 1,000 MG/100 ML INFUS..BTL IVPB ONE ×2 (09:41→11:34)
[2020-01-22] MEDS ORDERED: *HR* HYDROmorphone PF 0.5 MG/0.5 ML SYRINGE IVP PRN (09:41)
[2020-01-22] MEDS ORDERED: Ondansetron 4 MG/2 ML VIAL IVP ONE (09:41)
[2020-01-22] MEDS ORDERED: *HR* Promethazine 25 MG/ML VIAL IVP PRN (09:41)
[2020-01-22] MEDS ORDERED: *HR* OxyCODONE Immed Rel 5 MG TABLET PO PRN (09:41)
[2020-01-22] MEDS ORDERED: CeFAZolin Syr 2,000MG/20 ML 2,000 MG/20 ML SYRINGE IVPB ONE (09:41)
[2020-01-22] MEDS ORDERED: *HR* PHENYLEPHRINE 1,000 MCG/10 ML SYRINGE IVP ONE (10:28)
[2020-01-22] MEDS ORDERED: EPHEDrine 50 MG/ML VIAL ONE (10:33)
[2020-01-22] MEDS ORDERED: Acetaminophen IV 1,000 MG/100 ML INFUS..BTL ONE (11:07)
[2020-01-22] MEDS ORDERED: D5% in Water 1,000 ML IVC PRN (11:34)
[2020-01-22] MEDS ORDERED: Naloxone 0.4 MG/ML INJ IVP PRN (11:34)
[2020-01-22] MEDS ORDERED: *HR* HYDROcodone/Acet 5/325 mg TABLET PO PRN (11:34)
[2020-01-22] MEDS ORDERED: Nitroglycerin 0.4 MG TAB.SUBL SL PRN (11:34)
[2020-01-22] MEDS ORDERED: *HR* Dextrose 50 % in Water (Syg) 50 ML SYRINGE IVP PRN (11:34)
[2020-01-22] MEDS ORDERED: Albuterol 2.5 MG/3 ML NEBULIZER IH PRN (11:34)
[2020-01-22] MEDS ORDERED: Dextrose Gel 15 GM/37.5 ML TUBE PO PRN ×2 (11:34)
[2020-01-22] MEDS ORDERED: Ringers Solution, Lactated 1,000 ML ONE (11:39)
[2020-01-22] MEDS ORDERED: Insulin LISPRO 300 UNITS/3 ML VIAL SQ SCH (12:00)
[2020-01-22] MEDS ORDERED: methylPREDNISolone 125 MG/2 ML VIAL IVP SCH ×2 (16:00→16:48)
[2020-01-22] MEDS: MethylPREDNISolone 40 MG/ML VIAL IVP SCH (17:09)
[2020-01-23] MEDS: Ipratropium/Albuterol Neb 3 ML IH SCH ×3 (00:33→07:44)
[2020-01-23 02:22] LABS: Basophils % 0.1 %; Hematocrit 37.8 % (37.5-50.1); Hemoglobin 12.5 g/dL (12.9-16.9); Immature Granulocytes % 0.8 % (0-4); Lymphocytes # 0.8 K/mcL (0.6-4.6); Lymphocytes % 8.6 %; Mean Corpuscular HGB Conc 33.1 g/dL (31.6-35.5); Mean Corpuscular Hemoglobin 30.6 pg (28.0-33.3); Mean Corpuscular Volume 92.4 fL (83.0-100.0); Mean Platelet Volume 9.9 fL (9.4-12.4); Monocytes # 0.6 K/mcL (0.0-1.3); Monocytes % 6.2 %; Neutrophils # 7.4 K/mcL (1.6-8.9); Platelet Count 223 K/mcL (140-400); Red Blood Count 4.09 M/mcL (4.19-5.50); Red Cell Distribution Width 12.6 % (11.5-14.5); Segmented Neutrophils % 84.3 %; White Blood Count 8.8 K/mcL (4.3-11.1)
[2020-01-23 02:39] LABS: BUN/Creatinine Ratio 20 (6-26); Blood Urea Nitrogen 19 mg/dL (6-20); Calcium 9.1 mg/dL (8.6-10.3); Carbon Dioxide 27 mEq/L (23-29); Chloride 100 mEq/L (98-107); Glucose 145 mg/dL (70-105); Osmolality,Calculated 283 (280-300); Phosphorous 2.8 mg/dL (2.7-4.5); Potassium 4.4 mEq/L (3.5-5.1); Sodium 134 mEq/L (136-145); eGFR For African Americans > 60 (> 60); eGFR For Non-African Americans > 60 (> 60)
[2020-01-23] MEDS: MethylPREDNISolone 40 MG/ML VIAL IVP SCH (05:25)
[2020-01-23 07:54] VITALS: BP 144/93
[2020-01-23] MEDS ORDERED: Roflumilast [Daliresp] 500 MCG PO SCH (09:00)
[2020-01-23] MEDS ORDERED: Isosorbide MONOnitrate (24 HR) 60 MG TAB.ER.24H PO SCH (09:00)
[2020-01-23] MEDS ORDERED: Metoprolol XL (24 HR) Succ 25 MG TAB.ER.24H PO SCH (09:00)
[2020-01-23] MEDS: Baclofen 10 MG TABLET PO SCH (09:13)
[2020-01-23] MEDS: Doxycycline 100 MG CAPSULE PO SCH (09:14)
[2020-01-23] MEDS: cilostazoL 100 MG TABLET PO SCH (09:14)
[2020-01-23] MEDS: Primidone 50 MG TABLET PO SCH (09:16)
[2020-01-23] MEDS ORDERED: *HR* Heparin 5,000 UNIT/ML VIAL SQ SCH (10:00)
== END 2020-01-23 10:11 | disposition home or self-care (01) ==
LOC: 3BNU → SUATTDRO 16:10
PROVIDERS: ADMIT Internal Medicine; ATTEND Internal Medicine

== ENCOUNTER 2021-08-21 07:00 | Inpatient (IN) ==
[2021-08-21] MEDS ORDERED: cefTRIAXone 1,000 MG in Water for inj. (sterile) 10 ML IVP ONE (07:03)
[2021-08-21] MEDS ORDERED: Aspirin 81 MG TAB.CHEW PO STA (07:03)
[2021-08-21] MEDS ORDERED: Azithromycin 500 MG in 0.9 % Sodium Chloride 250 ML IVPB ONE (07:03)
[2021-08-21] MEDS ORDERED: Ipratropium/Albuterol Neb 3 ML IH ONE (07:03)
[2021-08-21] MEDS ORDERED: methylPREDNISolone 125 MG/2 ML VIAL IVP ONE (07:03)
[2021-08-21 07:27] LABS: Basophils # 0.1 K/mcL (0.0-0.2); Basophils % 0.4 %; Eosinophils % 0.3 %; Hematocrit 43.9 % (37.5-50.1); Hemoglobin 14.2 g/dL (12.9-16.9); Immature Granulocytes % 0.5 % (0-4); Lymphocytes % 7.2 %; Mean Corpuscular HGB Conc 32.3 g/dL (31.6-35.5); Mean Corpuscular Hemoglobin 30.3 pg (28.0-33.3); Mean Corpuscular Volume 93.6 fL (83.0-100.0); Mean Platelet Volume 9.6 fL (9.4-12.4); Monocytes # 1.1 K/mcL (0.0-1.3); Monocytes % 8.5 %; Platelet Count 231 K/mcL (140-400); Red Blood Count 4.69 M/mcL (4.19-5.50); Red Cell Distribution Width 13.8 % (11.5-14.5); Segmented Neutrophils % 83.1 %; White Blood Count 13.2 K/mcL (4.3-11.1)
[2021-08-21 07:58] LABS: Alanine Aminotransferase 15 Units/L (7-52); Albumin 4.2 g/dL (3.5-5.7); Albumin/Globulin Ratio 1.4 (1.1-2.2); Alkaline Phosphatase 99 Units/L (34-104); Aspartate Amino Transferase 23 Units/L (13-39); BUN/Creatinine Ratio 13 (6-26); Bilirubin,Direct 0.2 mg/dL (0.0-0.2); Bilirubin,Indirect 0.6 mg/dL (0.0-1.0); Bilirubin,Total 0.8 mg/dL (0.3-1.0); Blood Urea Nitrogen 11 mg/dL (8-23); Calcium 9.4 mg/dL (8.6-10.3); Carbon Dioxide 31 mEq/L (23-29); Chloride 100 mEq/L (98-107); Globulin 3.1 g/dL (2.4-3.5); Glucose 112 mg/dL (70-105); Osmolality,Calculated 288 (280-300); Potassium 4.9 mEq/L (3.5-5.1); Sodium 139 mEq/L (136-145); Total Protein 7.3 g/dL (6.4-8.9); Troponin I 0.03 ng/mL (< 0.04); eGFR For African Americans > 60 (> 60); eGFR For Non-African Americans > 60 (> 60)
[2021-08-21 08:02] LABS: INR 1.2; Prothrombin Time 13.8 Seconds (9.4-12.1)
[2021-08-21 08:04] LABS: Activated Partial Thrombo Time 31.7 Seconds (26.0-36.0)
[2021-08-21 09:20] LABS: Adenovirus Not Detected (Not Detect); Bordetella Pertussis Not Detected (Not Detect); Chlamydophila pneumoniae Not Detected (Not Detect); Coronavirus 229E Not Detected (Not Detect); Coronavirus HKU1 Not Detected (Not Detect); Coronavirus NL63 Not Detected (Not Detect); Coronavirus OC43 DETECTED (Not Detect); Human Metapneumovirus Not Detected (Not Detect); Human Rhinovirus/Enterovirus Not Detected (Not Detect); Influenza A Subtype 2009 H1 Not Detected (Not Detect); Influenza B Not Detected (Not Detect); Mycoplasma pneumoniae Not Detected (Not Detect); Parainfluenza Virus 1 Not Detected (Not Detect); Parainfluenza Virus 2 Not Detected (Not Detect); Parainfluenza Virus 3 Not Detected (Not Detect); Parainfluenza Virus 4 Not Detected (Not Detect); Respiratory Syncytial Virus Not Detected (Not Detect); SARS-CoV-2 Not Detected (Not Detect)
[2021-08-21] MEDS ORDERED: Albuterol 2.5 MG/3 ML NEBULIZER IH ONE (10:39)
[2021-08-21] MEDS ORDERED: Ondansetron 4 MG/2 ML VIAL IVP PRN (11:19)
[2021-08-21] MEDS ORDERED: Acetaminophen 325 MG TABLET PO PRN (11:19)
[2021-08-21] MEDS ORDERED: Ipratropium/Albuterol Neb 3 ML IH PRN (11:20)
[2021-08-21] MEDS ORDERED: Furosemide 20 MG TABLET PO PRN (11:21)
[2021-08-21] MEDS ORDERED: *HR* HYDROcodone/Acet 5/325 mg TABLET PO PRN (11:21)
[2021-08-21] MEDS: Ipratropium/Albuterol Neb 3 ML IH SCH ×4 (15:38→23:19)
[2021-08-21] MEDS: Budesonide/Formoterol 160/4.5 1 PUFF INH IH SCH (20:14)
[2021-08-21] MEDS: Melatonin 3 MG TABLET PO PRN (22:08)
[2021-08-21] MEDS: Primidone 50 MG TABLET PO SCH (22:09)
[2021-08-22 02:41] LABS: BUN/Creatinine Ratio 22 (6-26); Blood Urea Nitrogen 18 mg/dL (8-23); Calcium 9.4 mg/dL (8.6-10.3); Carbon Dioxide 29 mEq/L (23-29); Chloride 102 mEq/L (98-107); Glucose 153 mg/dL (70-105); Magnesium 2.1 mg/dL (1.6-2.6); Osmolality,Calculated 291 (280-300); Phosphorous 1.8 mg/dL (2.7-4.5); Potassium 3.4 mEq/L (3.5-5.1); Sodium 138 mEq/L (136-145); eGFR For African Americans > 60 (> 60); eGFR For Non-African Americans > 60 (> 60)
[2021-08-22] MEDS: Ipratropium/Albuterol Neb 3 ML IH SCH ×6 (03:51→23:37)
[2021-08-22] MEDS: *HR* Enoxaparin 40 MG/0.4 ML SYRINGE SQ SCH (05:30)
[2021-08-22] MEDS: Budesonide/Formoterol 160/4.5 1 PUFF INH IH SCH ×2 (07:42→20:16)
[2021-08-22] MEDS: Primidone 50 MG TABLET PO SCH ×2 (08:41→20:33)
[2021-08-22] MEDS: predniSONE 20 MG TABLET PO SCH (08:41)
[2021-08-22] MEDS: Metoprolol XL (24 HR) Succ 25 MG TAB.ER.24H PO SCH (08:41)
[2021-08-22] MEDS: Aspirin Enteric Coated 81 MG Tablet PO SCH (08:41)
[2021-08-22] MEDS: Isosorbide MONOnitrate (24 HR) 60 MG TAB.ER.24H PO SCH (08:41)
[2021-08-22] MEDS: Azithromycin 250 MG TABLET PO SCH (08:42)
[2021-08-22] MEDS: Melatonin 3 MG TABLET PO PRN (20:32)
[2021-08-23] MEDS: Ipratropium/Albuterol Neb 3 ML IH SCH ×6 (03:54→23:42)
[2021-08-23] MEDS: *HR* Enoxaparin 40 MG/0.4 ML SYRINGE SQ SCH (06:07)
[2021-08-23] MEDS: Budesonide/Formoterol 160/4.5 1 PUFF INH IH SCH ×2 (08:01→20:12)
[2021-08-23] MEDS: Aspirin Enteric Coated 81 MG Tablet PO SCH (09:00)
[2021-08-23] MEDS: Isosorbide MONOnitrate (24 HR) 60 MG TAB.ER.24H PO SCH (09:00)
[2021-08-23] MEDS: Primidone 50 MG TABLET PO SCH ×2 (09:01→20:22)
[2021-08-23] MEDS: predniSONE 20 MG TABLET PO SCH (09:01)
[2021-08-23] MEDS: Azithromycin 250 MG TABLET PO SCH (09:01)
[2021-08-23] MEDS: Metoprolol XL (24 HR) Succ 25 MG TAB.ER.24H PO SCH (09:01)
[2021-08-23] MEDS: GuaiFENesin/Codeine Oral Soln 5 ML UDC PO PRN ×2 (09:28→23:25)
[2021-08-23] MEDS: Chloraseptic Spray 177 ML BOTTLE MM PRN ×2 (09:31→23:26)
[2021-08-24] MEDS: Ipratropium/Albuterol Neb 3 ML IH SCH ×6 (03:36→23:50)
[2021-08-24] MEDS: *HR* Enoxaparin 40 MG/0.4 ML SYRINGE SQ SCH (05:19)
[2021-08-24] MEDS: Budesonide/Formoterol 160/4.5 1 PUFF INH IH SCH ×2 (08:09→21:01)
[2021-08-24] MEDS: Aspirin Enteric Coated 81 MG Tablet PO SCH (08:42)
[2021-08-24] MEDS: predniSONE 20 MG TABLET PO SCH (08:42)
[2021-08-24] MEDS: Isosorbide MONOnitrate (24 HR) 60 MG TAB.ER.24H PO SCH (08:42)
[2021-08-24] MEDS: Primidone 50 MG TABLET PO SCH ×2 (08:43→21:54)
[2021-08-24] MEDS: Metoprolol XL (24 HR) Succ 25 MG TAB.ER.24H PO SCH (08:43)
[2021-08-24] MEDS: Azithromycin 250 MG TABLET PO SCH (08:43)
[2021-08-24 08:53] LABS: Eosinophils # 0.2 K/mcL (0.0-0.6); Hematocrit 41.2 % (37.5-50.1); Hemoglobin 13.8 g/dL (12.9-16.9); Mean Corpuscular HGB Conc 33.5 g/dL (31.6-35.5); Mean Corpuscular Hemoglobin 31.2 pg (28.0-33.3); Mean Platelet Volume 10.2 fL (9.4-12.4); Platelet Count 260 K/mcL (140-400); Red Blood Count 4.43 M/mcL (4.19-5.50); Red Cell Distribution Width 13.6 % (11.5-14.5); White Blood Count 9.9 K/mcL (4.3-11.1)
[2021-08-24 09:12] LABS: BUN/Creatinine Ratio 21 (6-26); Blood Urea Nitrogen 14 mg/dL (8-23); Calcium 9.4 mg/dL (8.6-10.3); Carbon Dioxide 32 mEq/L (23-29); Chloride 101 mEq/L (98-107); Glucose 104 mg/dL (70-105); Osmolality,Calculated 289 (280-300); Potassium 3.9 mEq/L (3.5-5.1); Sodium 139 mEq/L (136-145); eGFR For African Americans > 60 (> 60); eGFR For Non-African Americans > 60 (> 60)
[2021-08-24] MEDS: GuaiFENesin/Codeine Oral Soln 5 ML UDC PO PRN ×2 (10:28→23:38)
[2021-08-24 11:07] LABS: Lymphocytes # 3.6 K/mcL (0.6-4.6); Neutrophils # 5.2 K/mcL (1.6-8.9); Reactive Lymphocytes Present (Not Present)
[2021-08-24 11:12] LABS: Platelet Estimate Normal (Normal)
[2021-08-24] MEDS ORDERED: methylPREDNISolone 125 MG/2 ML VIAL IVP ONE (11:20)
[2021-08-24] MEDS: MethylPREDNISolone 40 MG/ML VIAL IVP SCH (21:55)
[2021-08-25 01:08] LABS: Basophils % 0.3 %; Immature Granulocytes % 1.3 % (0-4); Lymphocytes % 10.1 %; Mean Corpuscular HGB Conc 33.3 g/dL (31.6-35.5); Mean Corpuscular Hemoglobin 30.9 pg (28.0-33.3); Mean Corpuscular Volume 92.6 fL (83.0-100.0); Mean Platelet Volume 9.9 fL (9.4-12.4); Monocytes # 0.4 K/mcL (0.0-1.3); Monocytes % 3.5 %; Neutrophils # 8.5 K/mcL (1.6-8.9); Platelet Count 271 K/mcL (140-400); Red Blood Count 4.21 M/mcL (4.19-5.50); Red Cell Distribution Width 13.5 % (11.5-14.5); Segmented Neutrophils % 84.8 %
[2021-08-25 01:28] LABS: Alanine Aminotransferase 23 Units/L (7-52); Albumin 3.7 g/dL (3.5-5.7); Albumin/Globulin Ratio 1.4 (1.1-2.2); Alkaline Phosphatase 73 Units/L (34-104); Aspartate Amino Transferase 24 Units/L (13-39); BUN/Creatinine Ratio 28 (6-26); Bilirubin,Total 0.3 mg/dL (0.3-1.0); Blood Urea Nitrogen 17 mg/dL (8-23); Calcium 9.3 mg/dL (8.6-10.3); Carbon Dioxide 29 mEq/L (23-29); Chloride 100 mEq/L (98-107); Globulin 2.7 g/dL (2.4-3.5); Glucose 157 mg/dL (70-105); Osmolality,Calculated 287 (280-300); Potassium 4.4 mEq/L (3.5-5.1); Sodium 136 mEq/L (136-145); Total Protein 6.4 g/dL (6.4-8.9); eGFR For African Americans > 60 (> 60); eGFR For Non-African Americans > 60 (> 60)
[2021-08-25] MEDS: Ipratropium/Albuterol Neb 3 ML IH SCH ×6 (03:39→23:11)
[2021-08-25] MEDS: *HR* Enoxaparin 40 MG/0.4 ML SYRINGE SQ SCH (05:09)
[2021-08-25] MEDS: MethylPREDNISolone 40 MG/ML VIAL IVP SCH ×2 (05:10→17:24)
[2021-08-25] MEDS: Budesonide/Formoterol 160/4.5 1 PUFF INH IH SCH ×2 (07:59→20:08)
[2021-08-25] MEDS: Primidone 50 MG TABLET PO SCH ×2 (08:19→21:37)
[2021-08-25] MEDS: Azithromycin 250 MG TABLET PO SCH (08:19)
[2021-08-25] MEDS: Isosorbide MONOnitrate (24 HR) 60 MG TAB.ER.24H PO SCH (08:19)
[2021-08-25] MEDS: Metoprolol XL (24 HR) Succ 25 MG TAB.ER.24H PO SCH (08:19)
[2021-08-25] MEDS: Aspirin Enteric Coated 81 MG Tablet PO SCH (08:20)
[2021-08-25] MEDS: GuaiFENesin/Codeine Oral Soln 5 ML UDC PO PRN (21:47)
[2021-08-26 01:47] LABS: Basophils % 0.3 %; Hematocrit 39.2 % (37.5-50.1); Hemoglobin 12.8 g/dL (12.9-16.9); Immature Granulocytes % 1.5 % (0-4); Lymphocytes # 1.3 K/mcL (0.6-4.6); Lymphocytes % 10.5 %; Mean Corpuscular HGB Conc 32.7 g/dL (31.6-35.5); Mean Corpuscular Hemoglobin 30.3 pg (28.0-33.3); Mean Corpuscular Volume 92.9 fL (83.0-100.0); Mean Platelet Volume 9.9 fL (9.4-12.4); Monocytes # 0.7 K/mcL (0.0-1.3); Monocytes % 5.7 %; Neutrophils # 10.2 K/mcL (1.6-8.9); Platelet Count 297 K/mcL (140-400); Red Blood Count 4.22 M/mcL (4.19-5.50); Red Cell Distribution Width 13.5 % (11.5-14.5); White Blood Count 12.4 K/mcL (4.3-11.1)
[2021-08-26 02:08] LABS: Alanine Aminotransferase 24 Units/L (7-52); Albumin 3.6 g/dL (3.5-5.7); Albumin/Globulin Ratio 1.4 (1.1-2.2); Alkaline Phosphatase 68 Units/L (34-104); Aspartate Amino Transferase 21 Units/L (13-39); BUN/Creatinine Ratio 27 (6-26); Bilirubin,Total 0.3 mg/dL (0.3-1.0); Blood Urea Nitrogen 17 mg/dL (8-23); Carbon Dioxide 31 mEq/L (23-29); Chloride 99 mEq/L (98-107); Globulin 2.6 g/dL (2.4-3.5); Glucose 133 mg/dL (70-105); Osmolality,Calculated 283 (280-300); Potassium 4.4 mEq/L (3.5-5.1); Sodium 135 mEq/L (136-145); Total Protein 6.2 g/dL (6.4-8.9); eGFR For African Americans > 60 (> 60); eGFR For Non-African Americans > 60 (> 60)
[2021-08-26] MEDS: Ipratropium/Albuterol Neb 3 ML IH SCH ×2 (03:26→07:32)
[2021-08-26] MEDS: MethylPREDNISolone 40 MG/ML VIAL IVP SCH (06:11)
[2021-08-26] MEDS: *HR* Enoxaparin 40 MG/0.4 ML SYRINGE SQ SCH (06:11)
[2021-08-26] MEDS: Budesonide/Formoterol 160/4.5 1 PUFF INH IH SCH (07:32)
[2021-08-26 08:03] VITALS: BP 139/80; PULSE 66; TEMP 98.1; O2SAT 99
[2021-08-26] MEDS: Aspirin Enteric Coated 81 MG Tablet PO SCH (09:30)
[2021-08-26] MEDS: Primidone 50 MG TABLET PO SCH (09:30)
[2021-08-26] MEDS: Isosorbide MONOnitrate (24 HR) 60 MG TAB.ER.24H PO SCH (09:30)
[2021-08-26] MEDS: Metoprolol XL (24 HR) Succ 25 MG TAB.ER.24H PO SCH (09:30)
== END 2021-08-26 10:05 | disposition home or self-care (01) | DRG 720 ==
LOC: 3BNU 07:00 → EMEROOARM 07:00 → SUATTDRO 13:53 → 3BNU 15:01
PROVIDERS: ADMIT Internal Medicine; ATTEND Registered Nurse

== ENCOUNTER 2021-09-21 05:38 | Inpatient (IN) ==
[2021-09-21] MEDS ORDERED: Ipratropium/Albuterol Neb 3 ML IH ONE ×2 (05:57→08:41)
[2021-09-21] MEDS ORDERED: Albuterol 2.5 MG/3 ML NEBULIZER IH ONE (05:57)
[2021-09-21] MEDS ORDERED: methylPREDNISolone 125 MG/2 ML VIAL IVP ONE (05:57)
[2021-09-21 06:15] LABS: Basophils # 0.1 K/mcL (0.0-0.2); Basophils % 0.7 %; Eosinophils % 0.4 %; Hematocrit 42.1 % (37.5-50.1); Hemoglobin 13.6 g/dL (12.9-16.9); Immature Granulocytes % 1.8 % (0-4); Lymphocytes # 1.9 K/mcL (0.6-4.6); Lymphocytes % 18.1 %; Mean Corpuscular HGB Conc 32.3 g/dL (31.6-35.5); Mean Corpuscular Hemoglobin 30.4 pg (28.0-33.3); Mean Corpuscular Volume 94.2 fL (83.0-100.0); Mean Platelet Volume 9.6 fL (9.4-12.4); Monocytes # 0.8 K/mcL (0.0-1.3); Monocytes % 7.9 %; Neutrophils # 7.3 K/mcL (1.6-8.9); Platelet Count 342 K/mcL (140-400); Red Blood Count 4.47 M/mcL (4.19-5.50); Red Cell Distribution Width 14.2 % (11.5-14.5); Segmented Neutrophils % 71.1 %; White Blood Count 10.3 K/mcL (4.3-11.1)
[2021-09-21 06:27] LABS: INR 1.1; Prothrombin Time 12.3 Seconds (9.4-12.1)
[2021-09-21] MEDS ORDERED: cefTRIAXone 1,000 MG in 0.9 % Sodium Chloride Mini Bag 100 ML IVPB ONE (06:40)
[2021-09-21] MEDS ORDERED: Azithromycin 250 MG TABLET PO ONE (06:40)
[2021-09-21 06:45] LABS: Alanine Aminotransferase 16 Units/L (7-52); Albumin 3.9 g/dL (3.5-5.7); Albumin/Globulin Ratio 1.2 (1.1-2.2); Alkaline Phosphatase 86 Units/L (34-104); Aspartate Amino Transferase 16 Units/L (13-39); BUN/Creatinine Ratio 18 (6-26); Bilirubin,Indirect 0.2 mg/dL (0.0-1.0); Bilirubin,Total 0.2 mg/dL (0.3-1.0); Blood Urea Nitrogen 15 mg/dL (8-23); Calcium 9.9 mg/dL (8.6-10.3); Carbon Dioxide 32 mEq/L (23-29); Chloride 107 mEq/L (98-107); Globulin 3.2 g/dL (2.4-3.5); Glucose 111 mg/dL (70-105); Osmolality,Calculated 306 (280-300); Potassium 5.3 mEq/L (3.5-5.1); Sodium 147 mEq/L (136-145); Total Protein 7.1 g/dL (6.4-8.9); Troponin I < 0.03 ng/mL (< 0.04); eGFR For African Americans > 60 (> 60); eGFR For Non-African Americans > 60 (> 60)
[2021-09-21 07:20] LABS: Adenovirus Not Detected (Not Detect); Bordetella Pertussis Not Detected (Not Detect); Chlamydophila pneumoniae Not Detected (Not Detect); Coronavirus 229E Not Detected (Not Detect); Coronavirus HKU1 Not Detected (Not Detect); Coronavirus NL63 Not Detected (Not Detect); Coronavirus OC43 Not Detected (Not Detect); Human Metapneumovirus Not Detected (Not Detect); Human Rhinovirus/Enterovirus Not Detected (Not Detect); Influenza A Subtype 2009 H1 Not Detected (Not Detect); Influenza B Not Detected (Not Detect); Mycoplasma pneumoniae Not Detected (Not Detect); Parainfluenza Virus 1 Not Detected (Not Detect); Parainfluenza Virus 2 Not Detected (Not Detect); Parainfluenza Virus 3 Not Detected (Not Detect); Parainfluenza Virus 4 Not Detected (Not Detect); Respiratory Syncytial Virus Not Detected (Not Detect); SARS-CoV-2 Not Detected (Not Detect)
[2021-09-21] MEDS ORDERED: D5% in 0.45% NACL 1,000 ML IVC SCH (07:30)
[2021-09-21 08:51] LABS: BUN/Creatinine Ratio 19 (6-26); Blood Urea Nitrogen 14 mg/dL (8-23); Calcium 9.1 mg/dL (8.6-10.3); Carbon Dioxide 30 mEq/L (23-29); Chloride 105 mEq/L (98-107); Glucose 109 mg/dL (70-105); Osmolality,Calculated 293 (280-300); Potassium 3.8 mEq/L (3.5-5.1); Sodium 141 mEq/L (136-145); eGFR For African Americans > 60 (> 60); eGFR For Non-African Americans > 60 (> 60)
[2021-09-21 09:05] LABS: ABG Base Excess 3 mEq/L (-2 to 3); ABG HCO3 29 mEq/L (21-27); ABG Oxygen Saturation 94 % (95-98); ABG PCO2 46 mmHg (35-45); ABG PO2 73 mmHg (85-104); ABG TCO2 30 mEq/L (20-26)
[2021-09-21] MEDS ORDERED: Naloxone 0.4 MG/ML INJ IVP PRN (10:00)
[2021-09-21] MEDS ORDERED: Ondansetron 4 MG/2 ML VIAL IVP PRN (10:00)
[2021-09-21] MEDS ORDERED: Nitroglycerin 0.4 MG TAB.SUBL SL PRN (10:02)
[2021-09-21] MEDS ORDERED: Benzonatate 100 MG CAPSULE PO PRN (10:52)
[2021-09-21] MEDS: Ipratropium/Albuterol Neb 3 ML IH SCH ×4 (11:38→23:56)
[2021-09-21] MEDS: MethylPREDNISolone 40 MG/ML VIAL IVP SCH (17:02)
[2021-09-21] MEDS: *HR* Heparin 5,000 UNIT/ML VIAL SQ SCH (17:03)
[2021-09-21] MEDS: Baclofen 10 MG TABLET PO SCH (19:57)
[2021-09-21] MEDS: Budesonide/Formoterol 160/4.5 1 PUFF INH IH SCH (20:44)
[2021-09-22] MEDS: MethylPREDNISolone 40 MG/ML VIAL IVP SCH ×4 (00:39→23:45)
[2021-09-22] MEDS: Ipratropium/Albuterol Neb 3 ML IH SCH ×6 (03:58→23:43)
[2021-09-22] MEDS: *HR* Heparin 5,000 UNIT/ML VIAL SQ SCH ×2 (05:08→17:59)
[2021-09-22 06:28] LABS: Basophils % 0.2 %; Hematocrit 39.1 % (37.5-50.1); Hemoglobin 12.9 g/dL (12.9-16.9); Immature Granulocytes % 1.5 % (0-4); Lymphocytes # 1.2 K/mcL (0.6-4.6); Lymphocytes % 11.8 %; Mean Corpuscular Hemoglobin 30.9 pg (28.0-33.3); Mean Corpuscular Volume 93.8 fL (83.0-100.0); Mean Platelet Volume 9.7 fL (9.4-12.4); Monocytes # 0.4 K/mcL (0.0-1.3); Monocytes % 3.6 %; Neutrophils # 8.2 K/mcL (1.6-8.9); Platelet Count 343 K/mcL (140-400); Red Blood Count 4.17 M/mcL (4.19-5.50); Red Cell Distribution Width 14.2 % (11.5-14.5); Segmented Neutrophils % 82.9 %; White Blood Count 9.9 K/mcL (4.3-11.1)
[2021-09-22 06:46] LABS: BUN/Creatinine Ratio 26 (6-26); Blood Urea Nitrogen 19 mg/dL (8-23); Calcium 9.2 mg/dL (8.6-10.3); Carbon Dioxide 32 mEq/L (23-29); Chloride 106 mEq/L (98-107); Glucose 119 mg/dL (70-105); Magnesium 1.8 mg/dL (1.6-2.6); Osmolality,Calculated 297 (280-300); Phosphorous 3.4 mg/dL (2.7-4.5); Potassium 4.1 mEq/L (3.5-5.1); Sodium 142 mEq/L (136-145); eGFR For African Americans > 60 (> 60); eGFR For Non-African Americans > 60 (> 60)
[2021-09-22] MEDS: Isosorbide MONOnitrate (24 HR) 60 MG TAB.ER.24H PO SCH (07:45)
[2021-09-22] MEDS: Aspirin Enteric Coated 81 MG Tablet PO SCH (07:45)
[2021-09-22] MEDS: Baclofen 10 MG TABLET PO SCH (07:46)
[2021-09-22] MEDS: Metoprolol XL (24 HR) Succ 25 MG TAB.ER.24H PO SCH (07:46)
[2021-09-22] MEDS: Budesonide/Formoterol 160/4.5 1 PUFF INH IH SCH ×2 (08:07→20:01)
[2021-09-22] MEDS: cilostazoL 100 MG TABLET PO SCH (21:06)
[2021-09-22] MEDS: Primidone 50 MG TABLET PO SCH (21:07)
[2021-09-23 01:56] LABS: BUN/Creatinine Ratio 27 (6-26); Blood Urea Nitrogen 20 mg/dL (8-23); Calcium 8.7 mg/dL (8.6-10.3); Carbon Dioxide 31 mEq/L (23-29); Chloride 104 mEq/L (98-107); Glucose 144 mg/dL (70-105); Osmolality,Calculated 291 (280-300); Sodium 138 mEq/L (136-145); eGFR For African Americans > 60 (> 60); eGFR For Non-African Americans > 60 (> 60)
[2021-09-23 01:58] LABS: Basophils % 0.2 %; Hematocrit 38.3 % (37.5-50.1); Hemoglobin 12.5 g/dL (12.9-16.9); Immature Granulocytes % 1.6 % (0-4); Lymphocytes # 1.3 K/mcL (0.6-4.6); Mean Corpuscular HGB Conc 32.6 g/dL (31.6-35.5); Mean Corpuscular Hemoglobin 30.7 pg (28.0-33.3); Mean Corpuscular Volume 94.1 fL (83.0-100.0); Mean Platelet Volume 9.9 fL (9.4-12.4); Monocytes # 0.9 K/mcL (0.0-1.3); Monocytes % 6.5 %; Neutrophils # 10.9 K/mcL (1.6-8.9); Platelet Count 342 K/mcL (140-400); Red Blood Count 4.07 M/mcL (4.19-5.50); Red Cell Distribution Width 14.1 % (11.5-14.5); Segmented Neutrophils % 81.7 %; White Blood Count 13.3 K/mcL (4.3-11.1)
[2021-09-23] MEDS: Ipratropium/Albuterol Neb 3 ML IH SCH ×6 (03:45→23:55)
[2021-09-23] MEDS: *HR* Heparin 5,000 UNIT/ML VIAL SQ SCH ×2 (05:25→17:17)
[2021-09-23] MEDS: Budesonide/Formoterol 160/4.5 1 PUFF INH IH SCH ×2 (07:41→19:49)
[2021-09-23] MEDS: Aspirin Enteric Coated 81 MG Tablet PO SCH (08:12)
[2021-09-23] MEDS: Primidone 50 MG TABLET PO SCH ×2 (08:12→21:09)
[2021-09-23] MEDS: cilostazoL 100 MG TABLET PO SCH ×2 (08:12→21:08)
[2021-09-23] MEDS: Metoprolol XL (24 HR) Succ 25 MG TAB.ER.24H PO SCH (08:12)
[2021-09-23] MEDS: Isosorbide MONOnitrate (24 HR) 60 MG TAB.ER.24H PO SCH (08:12)
[2021-09-23] MEDS: MethylPREDNISolone 40 MG/ML VIAL IVP SCH (08:13)
[2021-09-23] MEDS ORDERED: NON-FORMULARY MEDICATION 1 EACH EACH (Roflumilast [Daliresp] 500 MCG Tablet) PO SCH (09:00)
[2021-09-24] MEDS: Ipratropium/Albuterol Neb 3 ML IH SCH ×6 (04:12→23:53)
[2021-09-24] MEDS: *HR* Heparin 5,000 UNIT/ML VIAL SQ SCH ×2 (06:09→17:33)
[2021-09-24] MEDS: Budesonide/Formoterol 160/4.5 1 PUFF INH IH SCH ×2 (07:45→20:32)
[2021-09-24] MEDS: cilostazoL 100 MG TABLET PO SCH ×2 (08:25→19:57)
[2021-09-24] MEDS: Metoprolol XL (24 HR) Succ 25 MG TAB.ER.24H PO SCH (08:25)
[2021-09-24] MEDS: predniSONE 20 MG TABLET PO SCH (08:25)
[2021-09-24] MEDS: Isosorbide MONOnitrate (24 HR) 60 MG TAB.ER.24H PO SCH (08:25)
[2021-09-24] MEDS: Aspirin Enteric Coated 81 MG Tablet PO SCH (08:25)
[2021-09-24] MEDS: Primidone 50 MG TABLET PO SCH ×2 (08:26→19:58)
[2021-09-24 09:22] LABS: Basophils # 0.1 K/mcL (0.0-0.2); Basophils % 0.7 %; Eosinophils # 0.1 K/mcL (0.0-0.6); Eosinophils % 1.2 %; Hematocrit 42.4 % (37.5-50.1); Hemoglobin 13.8 g/dL (12.9-16.9); Immature Granulocytes % 2.8 % (0-4); Lymphocytes # 2.7 K/mcL (0.6-4.6); Lymphocytes % 26.1 %; Mean Corpuscular HGB Conc 32.5 g/dL (31.6-35.5); Mean Corpuscular Hemoglobin 30.7 pg (28.0-33.3); Mean Corpuscular Volume 94.2 fL (83.0-100.0); Mean Platelet Volume 9.8 fL (9.4-12.4); Monocytes # 0.9 K/mcL (0.0-1.3); Monocytes % 8.2 %; Neutrophils # 6.4 K/mcL (1.6-8.9); Platelet Count 321 K/mcL (140-400); Red Cell Distribution Width 14.2 % (11.5-14.5); White Blood Count 10.4 K/mcL (4.3-11.1)
[2021-09-24 09:40] LABS: BUN/Creatinine Ratio 24 (6-26); Blood Urea Nitrogen 20 mg/dL (8-23); Calcium 8.7 mg/dL (8.6-10.3); Carbon Dioxide 34 mEq/L (23-29); Chloride 103 mEq/L (98-107); Glucose 98 mg/dL (70-105); Osmolality,Calculated 295 (280-300); Potassium 3.5 mEq/L (3.5-5.1); Sodium 141 mEq/L (136-145); eGFR For African Americans > 60 (> 60); eGFR For Non-African Americans > 60 (> 60)
[2021-09-25] MEDS: Ipratropium/Albuterol Neb 3 ML IH SCH ×4 (04:07→15:52)
[2021-09-25] MEDS: *HR* Heparin 5,000 UNIT/ML VIAL SQ SCH (05:12)
[2021-09-25 05:28] LABS: Basophils % 0.3 %; Eosinophils % 0.3 %; Hematocrit 40.6 % (37.5-50.1); Hemoglobin 13.1 g/dL (12.9-16.9); Immature Granulocytes % 1.9 % (0-4); Lymphocytes % 15.9 %; Mean Corpuscular HGB Conc 32.3 g/dL (31.6-35.5); Mean Corpuscular Hemoglobin 30.2 pg (28.0-33.3); Mean Corpuscular Volume 93.5 fL (83.0-100.0); Mean Platelet Volume 9.9 fL (9.4-12.4); Monocytes # 0.9 K/mcL (0.0-1.3); Monocytes % 6.8 %; Neutrophils # 9.4 K/mcL (1.6-8.9); Platelet Count 314 K/mcL (140-400); Red Blood Count 4.34 M/mcL (4.19-5.50); Red Cell Distribution Width 14.5 % (11.5-14.5); Segmented Neutrophils % 74.8 %; White Blood Count 12.5 K/mcL (4.3-11.1)
[2021-09-25 05:52] LABS: BUN/Creatinine Ratio 25 (6-26); Blood Urea Nitrogen 18 mg/dL (8-23); Calcium 8.7 mg/dL (8.6-10.3); Carbon Dioxide 30 mEq/L (23-29); Chloride 103 mEq/L (98-107); Glucose 98 mg/dL (70-105); Osmolality,Calculated 288 (280-300); Potassium 3.8 mEq/L (3.5-5.1); Sodium 138 mEq/L (136-145); eGFR For African Americans > 60 (> 60); eGFR For Non-African Americans > 60 (> 60)
[2021-09-25] MEDS: Budesonide/Formoterol 160/4.5 1 PUFF INH IH SCH (07:34)
[2021-09-25] MEDS: Aspirin Enteric Coated 81 MG Tablet PO SCH (09:00)
[2021-09-25] MEDS: Isosorbide MONOnitrate (24 HR) 60 MG TAB.ER.24H PO SCH (09:00)
[2021-09-25] MEDS: predniSONE 20 MG TABLET PO SCH (09:00)
[2021-09-25] MEDS: Primidone 50 MG TABLET PO SCH (09:01)
[2021-09-25] MEDS: cilostazoL 100 MG TABLET PO SCH (09:02)
[2021-09-25] MEDS: Metoprolol XL (24 HR) Succ 25 MG TAB.ER.24H PO SCH (09:02)
[2021-09-25 15:27] VITALS: BP 125/87; PULSE 114; TEMP 98.2; O2SAT 96
== END 2021-09-25 18:02 | disposition home or self-care (01) | DRG 133 ==
LOC: 2ANU 05:38 → EMEROOARM 05:38 → SUATTDRO 15:58 → 2ANU 16:26
PROVIDERS: ADMIT Student in an Organized Health Care Education/Training Program; ATTEND Family Medicine

== ENCOUNTER 2022-02-20 06:23 | Inpatient (IN) ==
[2022-02-20] MEDS ORDERED: *HR* Rocuronium Bromide 50 MG/5 ML VIAL ONE ×2 (07:49→08:43)
[2022-02-20] MEDS ORDERED: Ondansetron 4 MG/2 ML VIAL IVP PRN (07:51)
[2022-02-20] MEDS ORDERED: Albuterol 2.5 MG/3 ML NEBULIZER IH PRN ×2 (07:51→11:50)
[2022-02-20] MEDS ORDERED: Lidocaine -MPF 2% 2 ML VIAL ONE (07:52)
[2022-02-20] MEDS ORDERED: Lidocaine HCL 4 ML Topical Solution (Laryng-O-Jet Kit Sterile Pak) TP ONE (07:53)
[2022-02-20] MEDS: Ringers Solution, Lactated 1,000 ML IVC SCH (08:02)
[2022-02-20] MEDS ORDERED: *HR* Metoprolol 5 MG/5 ML VIAL IVP ONE (08:11)
[2022-02-20] MEDS ORDERED: Naloxone 0.4 MG/ML INJ IVP PRN (11:31)
[2022-02-20] MEDS ORDERED: Ipratropium/Albuterol Neb 3 ML ONE (11:46)
[2022-02-20] MEDS: Ipratropium/Albuterol Neb 3 ML IH SCH ×4 (11:52→23:35)
[2022-02-20] MEDS ORDERED: Albuterol 2.5 MG/3 ML NEBULIZER IH SCH (13:00)
[2022-02-20] MEDS: Metoprolol XL (24 HR) Succ 25 MG TAB.ER.24H PO SCH (13:35)
[2022-02-20] MEDS: MethylPREDNISolone 40 MG/ML VIAL IVP SCH ×2 (13:35→19:37)
[2022-02-20] MEDS ORDERED: *HR* FentaNYL (PF) 100 MCG/2 ML VIAL ONE (15:43)
[2022-02-20] MEDS ORDERED: *HR* Midazolam HCl 5 MG/5 ML VIAL IVP ONE (15:46)
[2022-02-20] MEDS ORDERED: *HR* FentaNYL (PF) 100 MCG/2 ML VIAL IVP ONE ×2 (15:55→16:25)
[2022-02-20] MEDS ORDERED: *HR* Midazolam HCl 2 MG/2 ML VIAL IVP ONE (15:56)
[2022-02-20] MEDS: Dexmedetomidine HCl 400 MCG/100 ML MLS IVC SCH (16:51)
[2022-02-20] MEDS: Budesonide/Formoterol 160/4.5 1 PUFF INH IH SCH (20:18)
[2022-02-20] MEDS: cilostazoL 100 MG TABLET PO SCH (20:52)
[2022-02-21] MEDS: Dexmedetomidine HCl 400 MCG/100 ML MLS IVC SCH (02:28)
[2022-02-21] MEDS: Ipratropium/Albuterol Neb 3 ML IH SCH ×6 (04:02→23:50)
[2022-02-21] MEDS: Ringers Solution, Lactated 1,000 ML IVC SCH (04:15)
[2022-02-21 04:23] LABS: Hematocrit 42.4 % (37.5-50.1); Hemoglobin 13.9 g/dL (12.9-16.9); Mean Corpuscular HGB Conc 32.8 g/dL (31.6-35.5); Mean Corpuscular Hemoglobin 30.5 pg (28.0-33.3); Mean Platelet Volume 10.2 fL (9.4-12.4); Platelet Count 244 K/mcL (140-400); Red Blood Count 4.56 M/mcL (4.19-5.50); Red Cell Distribution Width 13.7 % (11.5-14.5); White Blood Count 11.8 K/mcL (4.3-11.1)
[2022-02-21] MEDS: MethylPREDNISolone 40 MG/ML VIAL IVP SCH ×2 (05:30→17:11)
[2022-02-21 05:31] LABS: BUN/Creatinine Ratio 18 (6-26); Blood Urea Nitrogen 13 mg/dL (8-23); Calcium 9.6 mg/dL (8.6-10.3); Carbon Dioxide 24 mEq/L (23-29); Chloride 102 mEq/L (98-107); Glucose 126 mg/dL (70-105); Osmolality,Calculated 284 (280-300); Potassium 4.9 mEq/L (3.5-5.1); Sodium 136 mEq/L (136-145); eGFR For African Americans > 60 (> 60); eGFR For Non-African Americans > 60 (> 60)
[2022-02-21] MEDS: Metoprolol XL (24 HR) Succ 25 MG TAB.ER.24H PO SCH (07:17)
[2022-02-21] MEDS: cilostazoL 100 MG TABLET PO SCH ×2 (07:17→20:23)
[2022-02-21] MEDS: Budesonide/Formoterol 160/4.5 1 PUFF INH IH SCH ×2 (07:45→20:06)
[2022-02-21] MEDS: Aspirin Enteric Coated 81 MG Tablet PO SCH (08:04)
[2022-02-21] MEDS ORDERED: Isosorbide MONOnitrate (24 HR) 60 MG TAB.ER.24H PO SCH (09:00)
[2022-02-21] MEDS ORDERED: Tiotropium 10 INH DOSE IH SCH (09:00)
[2022-02-21] MEDS ORDERED: Roflumilast [Daliresp] 500 MCG Tablet PO SCH (09:00)
[2022-02-21] MEDS ORDERED: Metoprolol XL (24 HR) Succ 25 MG TAB.ER.24H PO SCH (09:00)
[2022-02-21] MEDS: Acetaminophen 325 MG TABLET PO PRN (12:16)
[2022-02-21] MEDS: Primidone 50 MG TABLET PO SCH ×2 (12:16→20:23)
[2022-02-21] MEDS: Ipratropium/Albuterol Neb 3 ML IH PRN (17:03)
[2022-02-21] MEDS ORDERED: Lidocaine -MPF 1% 5 ML AMPUL ONE ×2 (17:58→18:01)
[2022-02-21] MEDS: *HR* FentaNYL (PF) 100 MCG/2 ML VIAL IVP PRN (18:16)
[2022-02-21] MEDS: GuaiFENesin/Codeine Oral Soln 5 ML UDC PO PRN (20:43)
[2022-02-22] MEDS: Dexmedetomidine HCl 400 MCG/100 ML MLS IVC SCH ×2 (01:37→20:24)
[2022-02-22] MEDS: *HR* FentaNYL (PF) 100 MCG/2 ML VIAL IVP PRN (03:40)
[2022-02-22] MEDS: GuaiFENesin/Codeine Oral Soln 5 ML UDC PO PRN ×2 (04:00→10:08)
[2022-02-22] MEDS: Ipratropium/Albuterol Neb 3 ML IH SCH ×6 (04:31→23:41)
[2022-02-22] MEDS: MethylPREDNISolone 40 MG/ML VIAL IVP SCH ×2 (05:32→17:39)
[2022-02-22] MEDS: Budesonide/Formoterol 160/4.5 1 PUFF INH IH SCH ×2 (07:43→19:56)
[2022-02-22] MEDS: Acetaminophen 325 MG TABLET PO PRN ×2 (08:23→17:44)
[2022-02-22] MEDS: Aspirin Enteric Coated 81 MG Tablet PO SCH (08:24)
[2022-02-22] MEDS: Primidone 50 MG TABLET PO SCH ×2 (08:24→20:25)
[2022-02-22] MEDS: cilostazoL 100 MG TABLET PO SCH ×2 (08:24→20:25)
[2022-02-22] MEDS: Metoprolol XL (24 HR) Succ 25 MG TAB.ER.24H PO SCH (08:24)
[2022-02-22 09:31] LABS: BUN/Creatinine Ratio 20 (6-26); Blood Urea Nitrogen 14 mg/dL (8-23); Calcium 9.4 mg/dL (8.6-10.3); Carbon Dioxide 26 mEq/L (23-29); Chloride 101 mEq/L (98-107); Glucose 111 mg/dL (70-105); Magnesium 1.9 mg/dL (1.6-2.6); Osmolality,Calculated 279 (280-300); Sodium 134 mEq/L (136-145); eGFR For African Americans > 60 (> 60); eGFR For Non-African Americans > 60 (> 60)
[2022-02-22] MEDS ORDERED: GuaiFENesin/Codeine Oral Soln 5 ML UDC PO PRN (10:12)
[2022-02-22 10:30] LABS: Basophils % 0.1 %; Hematocrit 40.5 % (37.5-50.1); Hemoglobin 13.7 g/dL (12.9-16.9); Immature Granulocytes % 0.8 % (0-4); Lymphocytes # 0.6 K/mcL (0.6-4.6); Mean Corpuscular HGB Conc 33.8 g/dL (31.6-35.5); Mean Corpuscular Hemoglobin 31.1 pg (28.0-33.3); Mean Platelet Volume 9.9 fL (9.4-12.4); Monocytes # 0.5 K/mcL (0.0-1.3); Monocytes % 4.2 %; Neutrophils # 11.6 K/mcL (1.6-8.9); Platelet Count 234 K/mcL (140-400); Red Cell Distribution Width 13.6 % (11.5-14.5); Segmented Neutrophils % 89.9 %; White Blood Count 12.9 K/mcL (4.3-11.1)
[2022-02-22] MEDS: Azithromycin 250 MG TABLET PO SCH (10:38)
[2022-02-22] MEDS ORDERED: Artificial Tears SOLN 15 ML BOTTLE BOTH EYES PRN (11:09)
[2022-02-22] MEDS: GuaiFENesin/Codeine Oral Soln 5 ML UDC PO SCH ×2 (17:39→23:22)
[2022-02-22] MEDS: polyethylene glycoL 3350 17 GM POWD.PACK PO SCH (17:39)
[2022-02-22] MEDS: *HR* Heparin 5,000 UNIT/ML VIAL SQ SCH (18:26)
[2022-02-23] MEDS: Ipratropium/Albuterol Neb 3 ML IH SCH ×6 (04:23→23:59)
[2022-02-23 04:26] LABS: Basophils % 0.1 %; Hematocrit 39.1 % (37.5-50.1); Immature Granulocytes % 0.6 % (0-4); Lymphocytes # 1.2 K/mcL (0.6-4.6); Lymphocytes % 10.1 %; Mean Corpuscular HGB Conc 33.2 g/dL (31.6-35.5); Mean Corpuscular Hemoglobin 30.4 pg (28.0-33.3); Mean Corpuscular Volume 91.6 fL (83.0-100.0); Mean Platelet Volume 10.2 fL (9.4-12.4); Monocytes # 0.8 K/mcL (0.0-1.3); Neutrophils # 9.5 K/mcL (1.6-8.9); Platelet Count 239 K/mcL (140-400); Red Blood Count 4.27 M/mcL (4.19-5.50); Red Cell Distribution Width 13.6 % (11.5-14.5); Segmented Neutrophils % 82.2 %; White Blood Count 11.5 K/mcL (4.3-11.1)
[2022-02-23 04:50] LABS: BUN/Creatinine Ratio 21 (6-26); Blood Urea Nitrogen 13 mg/dL (8-23); Calcium 9.2 mg/dL (8.6-10.3); Carbon Dioxide 25 mEq/L (23-29); Chloride 100 mEq/L (98-107); Glucose 134 mg/dL (70-105); Osmolality,Calculated 280 (280-300); Potassium 4.1 mEq/L (3.5-5.1); Sodium 134 mEq/L (136-145); eGFR For African Americans > 60 (> 60); eGFR For Non-African Americans > 60 (> 60)
[2022-02-23] MEDS: GuaiFENesin/Codeine Oral Soln 5 ML UDC PO SCH ×3 (06:04→18:32)
[2022-02-23] MEDS: MethylPREDNISolone 40 MG/ML VIAL IVP SCH ×2 (06:05→18:33)
[2022-02-23] MEDS: *HR* Heparin 5,000 UNIT/ML VIAL SQ SCH ×2 (06:07→18:32)
[2022-02-23] MEDS: Budesonide/Formoterol 160/4.5 1 PUFF INH IH SCH ×2 (07:51→19:45)
[2022-02-23] MEDS: polyethylene glycoL 3350 17 GM POWD.PACK PO SCH (09:08)
[2022-02-23] MEDS: Azithromycin 250 MG TABLET PO SCH (09:09)
[2022-02-23] MEDS: cilostazoL 100 MG TABLET PO SCH ×3 (09:09→19:53)
[2022-02-23] MEDS: Aspirin Enteric Coated 81 MG Tablet PO SCH (09:09)
[2022-02-23] MEDS: Primidone 50 MG TABLET PO SCH ×2 (09:09→19:53)
[2022-02-23] MEDS: Metoprolol XL (24 HR) Succ 25 MG TAB.ER.24H PO SCH (09:11)
[2022-02-23] MEDS: *HR* FentaNYL (PF) 100 MCG/2 ML VIAL IVP PRN ×2 (12:31→16:02)
[2022-02-23] MEDS ORDERED: Azithromycin 500 MG in 0.9 % Sodium Chloride 250 ML IVPB SCH (13:00)
[2022-02-23] MEDS ORDERED: *HR* Codeine Sulfate 30 MG TABLET PO PRN (16:08)
[2022-02-23] MEDS ORDERED: *HR* Metoprolol 5 MG/5 ML VIAL IVP ONE ×2 (16:34→16:39)
[2022-02-23] MEDS: Ampicillin/Sulbactam 3,000 MG in 0.9 % Sodium Chloride Mini Bag 100 ML IVPB SCH (18:34)
[2022-02-23] MEDS: Dexmedetomidine HCl 400 MCG/100 ML MLS IVC SCH (20:59)
[2022-02-24] MEDS: GuaiFENesin/Codeine Oral Soln 5 ML UDC PO SCH ×5 (00:12→23:35)
[2022-02-24] MEDS: Ampicillin/Sulbactam 3,000 MG in 0.9 % Sodium Chloride Mini Bag 100 ML IVPB SCH ×5 (00:12→23:36)
[2022-02-24] MEDS: Ipratropium/Albuterol Neb 3 ML IH SCH ×6 (03:52→23:43)
[2022-02-24] MEDS: *HR* Heparin 5,000 UNIT/ML VIAL SQ SCH ×2 (06:29→17:44)
[2022-02-24] MEDS: MethylPREDNISolone 40 MG/ML VIAL IVP SCH ×2 (06:29→17:48)
[2022-02-24] MEDS: Metoprolol XL (24 HR) Succ 25 MG TAB.ER.24H PO SCH (07:21)
[2022-02-24] MEDS: Primidone 50 MG TABLET PO SCH ×2 (07:22→19:53)
[2022-02-24] MEDS: cilostazoL 100 MG TABLET PO SCH ×2 (07:22→19:53)
[2022-02-24] MEDS: polyethylene glycoL 3350 17 GM POWD.PACK PO SCH (07:22)
[2022-02-24] MEDS: Aspirin Enteric Coated 81 MG Tablet PO SCH (07:22)
[2022-02-24] MEDS: Budesonide/Formoterol 160/4.5 1 PUFF INH IH SCH ×2 (07:49→19:56)
[2022-02-24] MEDS: Dexmedetomidine HCl 400 MCG/100 ML MLS IVC SCH (19:58)
[2022-02-25] MEDS: Ipratropium/Albuterol Neb 3 ML IH SCH ×6 (03:51→23:12)
[2022-02-25] MEDS: MethylPREDNISolone 40 MG/ML VIAL IVP SCH ×2 (06:12→17:05)
[2022-02-25] MEDS: *HR* Heparin 5,000 UNIT/ML VIAL SQ SCH ×2 (06:12→17:05)
[2022-02-25] MEDS: GuaiFENesin/Codeine Oral Soln 5 ML UDC PO SCH ×4 (06:12→23:48)
[2022-02-25] MEDS: Ampicillin/Sulbactam 3,000 MG in 0.9 % Sodium Chloride Mini Bag 100 ML IVPB SCH ×4 (06:13→23:48)
[2022-02-25] MEDS: Budesonide/Formoterol 160/4.5 1 PUFF INH IH SCH ×2 (07:45→20:19)
[2022-02-25] MEDS ORDERED: Lactulose Oral Soln 20 GM/30 ML UDC PO ONE (08:55)
[2022-02-25] MEDS: polyethylene glycoL 3350 17 GM POWD.PACK PO SCH ×2 (09:25→20:38)
[2022-02-25] MEDS: Aspirin Enteric Coated 81 MG Tablet PO SCH (09:26)
[2022-02-25] MEDS: cilostazoL 100 MG TABLET PO SCH ×2 (09:26→20:36)
[2022-02-25] MEDS: Primidone 50 MG TABLET PO SCH ×2 (09:26→20:37)
[2022-02-25] MEDS: Metoprolol XL (24 HR) Succ 25 MG TAB.ER.24H PO SCH (09:26)
[2022-02-25 10:37] LABS: Hematocrit 40.3 % (37.5-50.1); Hemoglobin 13.6 g/dL (12.9-16.9); Mean Corpuscular HGB Conc 33.7 g/dL (31.6-35.5); Mean Corpuscular Hemoglobin 31.1 pg (28.0-33.3); Mean Corpuscular Volume 92.2 fL (83.0-100.0); Mean Platelet Volume 10.2 fL (9.4-12.4); Platelet Count 251 K/mcL (140-400); Red Blood Count 4.37 M/mcL (4.19-5.50); Red Cell Distribution Width 13.6 % (11.5-14.5); White Blood Count 11.6 K/mcL (4.3-11.1)
[2022-02-25 10:55] LABS: BUN/Creatinine Ratio 17 (6-26); Blood Urea Nitrogen 11 mg/dL (8-23); Carbon Dioxide 29 mEq/L (23-29); Chloride 99 mEq/L (98-107); Glucose 133 mg/dL (70-105); Osmolality,Calculated 285 (280-300); Potassium 3.7 mEq/L (3.5-5.1); Sodium 137 mEq/L (136-145); eGFR For African Americans > 60 (> 60); eGFR For Non-African Americans > 60 (> 60)
[2022-02-25] MEDS ORDERED: Bisacodyl 10 MG RECTAL SUPPOSITORY RC PRN (16:59)
[2022-02-25] MEDS: *HR* Metoprolol 5 MG/5 ML VIAL IVP PRN ×3 (17:39→23:48)
[2022-02-26] MEDS ORDERED: Ondansetron 4 MG/2 ML VIAL ONE (01:30)
[2022-02-26] MEDS ORDERED: Ondansetron 4 MG/2 ML VIAL IVP PRN (01:37)
[2022-02-26] MEDS: Ipratropium/Albuterol Neb 3 ML IH SCH ×6 (03:37→23:20)
[2022-02-26] MEDS: *HR* Heparin 5,000 UNIT/ML VIAL SQ SCH ×2 (05:42→16:56)
[2022-02-26] MEDS: MethylPREDNISolone 40 MG/ML VIAL IVP SCH ×2 (05:43→16:57)
[2022-02-26] MEDS: Ampicillin/Sulbactam 3,000 MG in 0.9 % Sodium Chloride Mini Bag 100 ML IVPB SCH ×3 (05:43→16:56)
[2022-02-26] MEDS: GuaiFENesin/Codeine Oral Soln 5 ML UDC PO SCH ×4 (05:43→16:57)
[2022-02-26] MEDS: cilostazoL 100 MG TABLET PO SCH ×2 (07:29→19:27)
[2022-02-26] MEDS: Metoprolol XL (24 HR) Succ 25 MG TAB.ER.24H PO SCH (07:29)
[2022-02-26] MEDS: Aspirin Enteric Coated 81 MG Tablet PO SCH (07:30)
[2022-02-26] MEDS: Primidone 50 MG TABLET PO SCH ×2 (07:30→19:27)
[2022-02-26] MEDS: polyethylene glycoL 3350 17 GM POWD.PACK PO SCH ×2 (07:30→19:27)
[2022-02-26] MEDS: Budesonide/Formoterol 160/4.5 1 PUFF INH IH SCH ×2 (07:43→20:27)
[2022-02-26 07:52] LABS: Hematocrit 44.5 % (37.5-50.1); Hemoglobin 14.9 g/dL (12.9-16.9); Mean Corpuscular HGB Conc 33.5 g/dL (31.6-35.5); Mean Corpuscular Hemoglobin 30.9 pg (28.0-33.3); Mean Corpuscular Volume 92.3 fL (83.0-100.0); Mean Platelet Volume 9.8 fL (9.4-12.4); Platelet Count 315 K/mcL (140-400); Red Blood Count 4.82 M/mcL (4.19-5.50); White Blood Count 14.8 K/mcL (4.3-11.1)
[2022-02-26 08:13] LABS: BUN/Creatinine Ratio 21 (6-26); Blood Urea Nitrogen 14 mg/dL (8-23); Calcium 8.8 mg/dL (8.6-10.3); Carbon Dioxide 32 mEq/L (23-29); Chloride 100 mEq/L (98-107); Glucose 88 mg/dL (70-105); Osmolality,Calculated 286 (280-300); Potassium 3.8 mEq/L (3.5-5.1); Sodium 138 mEq/L (136-145); eGFR For African Americans > 60 (> 60); eGFR For Non-African Americans > 60 (> 60)
[2022-02-26] MEDS: Sennosides/Docusate Sodium TABLET PO SCH ×2 (09:07→19:27)
[2022-02-26] MEDS: Dexmedetomidine HCl 400 MCG/100 ML MLS IVC SCH (15:35)
[2022-02-26] MEDS: traZODone 50 MG TABLET PO PRN (21:51)
[2022-02-27] MEDS: GuaiFENesin/Codeine Oral Soln 5 ML UDC PO SCH ×4 (00:02→17:35)
[2022-02-27] MEDS: Ampicillin/Sulbactam 3,000 MG in 0.9 % Sodium Chloride Mini Bag 100 ML IVPB SCH ×4 (00:03→17:34)
[2022-02-27] MEDS: Ipratropium/Albuterol Neb 3 ML IH SCH ×6 (03:28→23:18)
[2022-02-27] MEDS: MethylPREDNISolone 40 MG/ML VIAL IVP SCH (06:04)
[2022-02-27] MEDS: *HR* Heparin 5,000 UNIT/ML VIAL SQ SCH ×2 (06:06→17:34)
[2022-02-27 06:55] LABS: Basophils % 0.1 %; Hematocrit 44.2 % (37.5-50.1); Hemoglobin 14.5 g/dL (12.9-16.9); Immature Granulocytes % 0.6 % (0-4); Lymphocytes # 1.3 K/mcL (0.6-4.6); Lymphocytes % 12.4 %; Mean Corpuscular HGB Conc 32.8 g/dL (31.6-35.5); Mean Corpuscular Hemoglobin 30.1 pg (28.0-33.3); Mean Corpuscular Volume 91.9 fL (83.0-100.0); Mean Platelet Volume 9.7 fL (9.4-12.4); Monocytes # 1.1 K/mcL (0.0-1.3); Monocytes % 10.6 %; Platelet Count 301 K/mcL (140-400); Red Blood Count 4.81 M/mcL (4.19-5.50); Red Cell Distribution Width 13.7 % (11.5-14.5); Segmented Neutrophils % 76.3 %; White Blood Count 10.4 K/mcL (4.3-11.1)
[2022-02-27 07:15] LABS: Alanine Aminotransferase 14 Units/L (7-52); Albumin 3.5 g/dL (3.5-5.7); Albumin/Globulin Ratio 1.7 (1.1-2.2); Alkaline Phosphatase 64 Units/L (34-104); Aspartate Amino Transferase 16 Units/L (13-39); BUN/Creatinine Ratio 29 (6-26); Bilirubin,Total 0.6 mg/dL (0.3-1.0); Blood Urea Nitrogen 20 mg/dL (8-23); Calcium 8.5 mg/dL (8.6-10.3); Carbon Dioxide 31 mEq/L (23-29); Chloride 99 mEq/L (98-107); Globulin 2.1 g/dL (2.4-3.5); Glucose 108 mg/dL (70-105); Magnesium 2.1 mg/dL (1.6-2.6); Osmolality,Calculated 287 (280-300); Phosphorous 3.9 mg/dL (2.7-4.5); Potassium 3.6 mEq/L (3.5-5.1); Sodium 137 mEq/L (136-145); Total Protein 5.6 g/dL (6.4-8.9); eGFR For African Americans > 60 (> 60); eGFR For Non-African Americans > 60 (> 60)
[2022-02-27] MEDS: Budesonide/Formoterol 160/4.5 1 PUFF INH IH SCH ×2 (07:47→19:54)
[2022-02-27] MEDS: Aspirin Enteric Coated 81 MG Tablet PO SCH (07:56)
[2022-02-27] MEDS: Primidone 50 MG TABLET PO SCH ×2 (07:56→19:22)
[2022-02-27] MEDS: Sennosides/Docusate Sodium TABLET PO SCH ×2 (07:56→20:39)
[2022-02-27] MEDS: cilostazoL 100 MG TABLET PO SCH ×2 (07:56→19:21)
[2022-02-27] MEDS: Metoprolol XL (24 HR) Succ 25 MG TAB.ER.24H PO SCH (07:57)
[2022-02-27] MEDS: polyethylene glycoL 3350 17 GM POWD.PACK PO SCH ×2 (07:57→19:22)
[2022-02-27] MEDS: Isosorbide MONOnitrate (24 HR) 60 MG TAB.ER.24H PO SCH (10:24)
[2022-02-27] MEDS: Dexmedetomidine HCl 400 MCG/100 ML MLS IVC SCH (17:31)
[2022-02-27] MEDS: traZODone 50 MG TABLET PO PRN (20:39)
[2022-02-28] MEDS: GuaiFENesin/Codeine Oral Soln 5 ML UDC PO SCH ×3 (00:01→11:32)
[2022-02-28 03:49] LABS: Basophils % 0.2 %; Eosinophils # 0.1 K/mcL (0.0-0.6); Eosinophils % 0.6 %; Hemoglobin 14.5 g/dL (12.9-16.9); Immature Granulocytes % 0.6 % (0-4); Lymphocytes # 1.6 K/mcL (0.6-4.6); Lymphocytes % 12.7 %; Mean Corpuscular Hemoglobin 30.7 pg (28.0-33.3); Mean Corpuscular Volume 93.2 fL (83.0-100.0); Mean Platelet Volume 9.9 fL (9.4-12.4); Monocytes # 1.4 K/mcL (0.0-1.3); Monocytes % 10.9 %; Neutrophils # 9.5 K/mcL (1.6-8.9); Platelet Count 306 K/mcL (140-400); Red Blood Count 4.72 M/mcL (4.19-5.50); Red Cell Distribution Width 13.9 % (11.5-14.5); White Blood Count 12.6 K/mcL (4.3-11.1)
[2022-02-28] MEDS: Ipratropium/Albuterol Neb 3 ML IH SCH ×6 (03:54→23:15)
[2022-02-28 04:13] LABS: Alanine Aminotransferase 12 Units/L (7-52); Albumin 3.4 g/dL (3.5-5.7); Albumin/Globulin Ratio 1.7 (1.1-2.2); Alkaline Phosphatase 60 Units/L (34-104); Aspartate Amino Transferase 13 Units/L (13-39); BUN/Creatinine Ratio 23 (6-26); Bilirubin,Total 0.6 mg/dL (0.3-1.0); Blood Urea Nitrogen 17 mg/dL (8-23); Calcium 8.4 mg/dL (8.6-10.3); Carbon Dioxide 33 mEq/L (23-29); Chloride 99 mEq/L (98-107); Glucose 106 mg/dL (70-105); Magnesium 2.1 mg/dL (1.6-2.6); Osmolality,Calculated 292 (280-300); Phosphorous 3.4 mg/dL (2.7-4.5); Potassium 3.6 mEq/L (3.5-5.1); Sodium 140 mEq/L (136-145); Total Protein 5.4 g/dL (6.4-8.9); eGFR For African Americans > 60 (> 60); eGFR For Non-African Americans > 60 (> 60)
[2022-02-28 04:45] LABS: VBG Ionized Calcium 1.11 mmol/L (1.15-1.35)
[2022-02-28] MEDS: *HR* Heparin 5,000 UNIT/ML VIAL SQ SCH ×2 (05:32→18:24)
[2022-02-28] MEDS: Budesonide/Formoterol 160/4.5 1 PUFF INH IH SCH ×2 (07:22→20:02)
[2022-02-28] MEDS: Aspirin Enteric Coated 81 MG Tablet PO SCH (08:22)
[2022-02-28] MEDS: Sennosides/Docusate Sodium TABLET PO SCH ×2 (08:22→20:44)
[2022-02-28] MEDS: Isosorbide MONOnitrate (24 HR) 60 MG TAB.ER.24H PO SCH (08:23)
[2022-02-28] MEDS: Metoprolol XL (24 HR) Succ 25 MG TAB.ER.24H PO SCH (08:23)
[2022-02-28] MEDS: cilostazoL 100 MG TABLET PO SCH ×2 (08:23→20:39)
[2022-02-28] MEDS: Primidone 50 MG TABLET PO SCH ×2 (08:24→20:44)
[2022-02-28] MEDS: polyethylene glycoL 3350 17 GM POWD.PACK PO SCH (08:24)
[2022-02-28] MEDS: predniSONE 20 MG TABLET PO SCH (08:24)
[2022-03-01 01:37] LABS: Basophils % 0.1 %; Eosinophils % 0.1 %; Hematocrit 41.5 % (37.5-50.1); Immature Granulocytes % 0.7 % (0-4); Lymphocytes # 1.1 K/mcL (0.6-4.6); Lymphocytes % 8.3 %; Mean Corpuscular HGB Conc 33.7 g/dL (31.6-35.5); Mean Corpuscular Hemoglobin 30.8 pg (28.0-33.3); Mean Corpuscular Volume 91.4 fL (83.0-100.0); Mean Platelet Volume 9.7 fL (9.4-12.4); Monocytes # 1.1 K/mcL (0.0-1.3); Monocytes % 7.9 %; Neutrophils # 11.1 K/mcL (1.6-8.9); Platelet Count 295 K/mcL (140-400); Red Blood Count 4.54 M/mcL (4.19-5.50); Red Cell Distribution Width 13.7 % (11.5-14.5); Segmented Neutrophils % 82.9 %; White Blood Count 13.4 K/mcL (4.3-11.1)
[2022-03-01 01:40] LABS: VBG Ionized Calcium 1.12 mmol/L (1.15-1.35)
[2022-03-01 02:00] LABS: Alanine Aminotransferase 12 Units/L (7-52); Albumin 3.4 g/dL (3.5-5.7); Albumin/Globulin Ratio 1.6 (1.1-2.2); Alkaline Phosphatase 59 Units/L (34-104); Aspartate Amino Transferase 13 Units/L (13-39); BUN/Creatinine Ratio 27 (6-26); Bilirubin,Total 0.8 mg/dL (0.3-1.0); Blood Urea Nitrogen 17 mg/dL (8-23); Calcium 8.3 mg/dL (8.6-10.3); Carbon Dioxide 30 mEq/L (23-29); Chloride 97 mEq/L (98-107); Globulin 2.1 g/dL (2.4-3.5); Glucose 112 mg/dL (70-105); Osmolality,Calculated 286 (280-300); Phosphorous 3.5 mg/dL (2.7-4.5); Potassium 3.3 mEq/L (3.5-5.1); Sodium 137 mEq/L (136-145); Total Protein 5.5 g/dL (6.4-8.9); eGFR For African Americans > 60 (> 60); eGFR For Non-African Americans > 60 (> 60)
[2022-03-01] MEDS: Ipratropium/Albuterol Neb 3 ML IH SCH ×7 (03:38→23:35)
[2022-03-01] MEDS: *HR* Heparin 5,000 UNIT/ML VIAL SQ SCH ×2 (05:10→17:44)
[2022-03-01] MEDS: Ipratropium/Albuterol Neb 3 ML IH PRN (05:46)
[2022-03-01] MEDS: Budesonide/Formoterol 160/4.5 1 PUFF INH IH SCH ×2 (07:30→20:09)
[2022-03-01] MEDS: Aspirin Enteric Coated 81 MG Tablet PO SCH (08:30)
[2022-03-01] MEDS: cilostazoL 100 MG TABLET PO SCH ×2 (08:30→19:50)
[2022-03-01] MEDS: Primidone 50 MG TABLET PO SCH ×2 (08:31→19:50)
[2022-03-01] MEDS: Sennosides/Docusate Sodium TABLET PO SCH ×2 (08:31→19:51)
[2022-03-01] MEDS: Metoprolol XL (24 HR) Succ 25 MG TAB.ER.24H PO SCH (08:31)
[2022-03-01] MEDS: Isosorbide MONOnitrate (24 HR) 60 MG TAB.ER.24H PO SCH (08:31)
[2022-03-01] MEDS: predniSONE 20 MG TABLET PO SCH (08:31)
[2022-03-02] MEDS: Ipratropium/Albuterol Neb 3 ML IH SCH ×6 (03:42→23:37)
[2022-03-02] MEDS: *HR* Heparin 5,000 UNIT/ML VIAL SQ SCH (06:22)
[2022-03-02 07:14] LABS: Basophils % 0.1 %; Eosinophils # 0.3 K/mcL (0.0-0.6); Eosinophils % 1.8 %; Hematocrit 41.1 % (37.5-50.1); Hemoglobin 14.1 g/dL (12.9-16.9); Immature Granulocytes % 0.7 % (0-4); Lymphocytes # 1.4 K/mcL (0.6-4.6); Lymphocytes % 9.4 %; Mean Corpuscular HGB Conc 34.3 g/dL (31.6-35.5); Mean Corpuscular Hemoglobin 31.3 pg (28.0-33.3); Mean Corpuscular Volume 91.3 fL (83.0-100.0); Mean Platelet Volume 9.9 fL (9.4-12.4); Monocytes # 1.4 K/mcL (0.0-1.3); Monocytes % 9.2 %; Platelet Count 279 K/mcL (140-400); Red Cell Distribution Width 13.4 % (11.5-14.5); Segmented Neutrophils % 78.8 %; White Blood Count 15.2 K/mcL (4.3-11.1)
[2022-03-02 07:20] LABS: VBG Ionized Calcium 1.08 mmol/L (1.15-1.35)
[2022-03-02 07:39] LABS: Alanine Aminotransferase 12 Units/L (7-52); Albumin 3.3 g/dL (3.5-5.7); Albumin/Globulin Ratio 1.7 (1.1-2.2); Alkaline Phosphatase 56 Units/L (34-104); Aspartate Amino Transferase 15 Units/L (13-39); BUN/Creatinine Ratio 27 (6-26); Bilirubin,Total 0.9 mg/dL (0.3-1.0); Blood Urea Nitrogen 16 mg/dL (8-23); Calcium 8.3 mg/dL (8.6-10.3); Carbon Dioxide 31 mEq/L (23-29); Chloride 98 mEq/L (98-107); Glucose 112 mg/dL (70-105); Magnesium 1.8 mg/dL (1.6-2.6); Osmolality,Calculated 284 (280-300); Phosphorous 2.8 mg/dL (2.7-4.5); Potassium 2.7 mEq/L (3.5-5.1); Sodium 136 mEq/L (136-145); Total Protein 5.3 g/dL (6.4-8.9); eGFR For African Americans > 60 (> 60); eGFR For Non-African Americans > 60 (> 60)
[2022-03-02] MEDS: Budesonide/Formoterol 160/4.5 1 PUFF INH IH SCH ×2 (07:55→21:37)
[2022-03-02] MEDS: predniSONE 20 MG TABLET PO SCH (09:04)
[2022-03-02] MEDS: Sennosides/Docusate Sodium TABLET PO SCH ×2 (09:04→19:38)
[2022-03-02] MEDS: cilostazoL 100 MG TABLET PO SCH ×2 (09:04→19:38)
[2022-03-02] MEDS: Metoprolol XL (24 HR) Succ 25 MG TAB.ER.24H PO SCH (09:05)
[2022-03-02] MEDS: Aspirin Enteric Coated 81 MG Tablet PO SCH (09:05)
[2022-03-02] MEDS: Primidone 50 MG TABLET PO SCH ×2 (09:05→19:38)
[2022-03-02] MEDS: Isosorbide MONOnitrate (24 HR) 60 MG TAB.ER.24H PO SCH (09:07)
[2022-03-02] MEDS: traZODone 50 MG TABLET PO PRN (23:11)
[2022-03-03] MEDS: Ipratropium/Albuterol Neb 3 ML IH SCH ×6 (03:39→23:58)
[2022-03-03] MEDS: *HR* Heparin 5,000 UNIT/ML VIAL SQ SCH ×3 (03:43→17:51)
[2022-03-03 04:59] LABS: Basophils % 0.2 %; Eosinophils # 0.5 K/mcL (0.0-0.6); Eosinophils % 3.4 %; Hematocrit 41.5 % (37.5-50.1); Hemoglobin 14.1 g/dL (12.9-16.9); Immature Granulocytes % 0.9 % (0-4); Lymphocytes # 1.6 K/mcL (0.6-4.6); Mean Corpuscular Hemoglobin 30.7 pg (28.0-33.3); Mean Corpuscular Volume 90.2 fL (83.0-100.0); Mean Platelet Volume 9.7 fL (9.4-12.4); Monocytes # 1.3 K/mcL (0.0-1.3); Monocytes % 8.6 %; Neutrophils # 11.1 K/mcL (1.6-8.9); Platelet Count 278 K/mcL (140-400); Red Cell Distribution Width 13.6 % (11.5-14.5); Segmented Neutrophils % 75.9 %; White Blood Count 14.6 K/mcL (4.3-11.1)
[2022-03-03 05:13] LABS: VBG Ionized Calcium 1.11 mmol/L (1.15-1.35)
[2022-03-03 05:21] LABS: Alanine Aminotransferase 13 Units/L (7-52); Albumin 3.2 g/dL (3.5-5.7); Albumin/Globulin Ratio 1.4 (1.1-2.2); Alkaline Phosphatase 57 Units/L (34-104); Aspartate Amino Transferase 14 Units/L (13-39); BUN/Creatinine Ratio 15 (6-26); Blood Urea Nitrogen 10 mg/dL (8-23); Calcium 8.5 mg/dL (8.6-10.3); Carbon Dioxide 28 mEq/L (23-29); Chloride 98 mEq/L (98-107); Globulin 2.3 g/dL (2.4-3.5); Glucose 96 mg/dL (70-105); Magnesium 1.7 mg/dL (1.6-2.6); Osmolality,Calculated 279 (280-300); Phosphorous 2.2 mg/dL (2.7-4.5); Potassium 2.8 mEq/L (3.5-5.1); Sodium 135 mEq/L (136-145); Total Protein 5.5 g/dL (6.4-8.9); eGFR For African Americans > 60 (> 60); eGFR For Non-African Americans > 60 (> 60)
[2022-03-03] MEDS ORDERED: Potassium Chloride Elixir 20 MEQ/15 ML UDC PO ONE (05:26)
[2022-03-03] MEDS: Budesonide/Formoterol 160/4.5 1 PUFF INH IH SCH ×2 (07:52→20:19)
[2022-03-03] MEDS: Metoprolol XL (24 HR) Succ 25 MG TAB.ER.24H PO SCH (08:29)
[2022-03-03] MEDS: Aspirin Enteric Coated 81 MG Tablet PO SCH (08:29)
[2022-03-03] MEDS: Sennosides/Docusate Sodium TABLET PO SCH ×2 (08:29→20:07)
[2022-03-03] MEDS: predniSONE 20 MG TABLET PO SCH (08:29)
[2022-03-03] MEDS: Primidone 50 MG TABLET PO SCH ×2 (08:30→20:08)
[2022-03-03] MEDS: Isosorbide MONOnitrate (24 HR) 60 MG TAB.ER.24H PO SCH (08:30)
[2022-03-03] MEDS: cilostazoL 100 MG TABLET PO SCH ×2 (08:31→20:07)
[2022-03-03] MEDS: Calcium Gluconate 1gm/50mL 1 GM/50 ML BAG IVPB SCH ×2 (08:32→10:59)
[2022-03-03 13:06] LABS: VBG Ionized Calcium 1.14 mmol/L (1.15-1.35)
[2022-03-03 13:39] LABS: Magnesium 1.7 mg/dL (1.6-2.6); Phosphorous 2.6 mg/dL (2.7-4.5)
[2022-03-03 13:43] LABS: BUN/Creatinine Ratio 15 (6-26); Blood Urea Nitrogen 10 mg/dL (8-23); Calcium 8.7 mg/dL (8.6-10.3); Carbon Dioxide 24 mEq/L (23-29); Chloride 99 mEq/L (98-107); Glucose 170 mg/dL (70-105); Osmolality,Calculated 277 (280-300); Potassium 3.5 mEq/L (3.5-5.1); Sodium 132 mEq/L (136-145); eGFR For African Americans > 60 (> 60); eGFR For Non-African Americans > 60 (> 60)
[2022-03-03] MEDS ORDERED: Calcium Gluconate 1gm/50mL 1 GM/50 ML BAG IVPB SCH (16:00)
[2022-03-04 03:25] LABS: VBG Ionized Calcium 1.11 mmol/L (1.15-1.35)
[2022-03-04 03:34] LABS: Basophils % 0.2 %; Eosinophils # 0.6 K/mcL (0.0-0.6); Eosinophils % 3.5 %; Hematocrit 37.6 % (37.5-50.1); Immature Granulocytes % 0.8 % (0-4); Lymphocytes # 2.2 K/mcL (0.6-4.6); Lymphocytes % 13.6 %; Mean Corpuscular HGB Conc 34.6 g/dL (31.6-35.5); Mean Corpuscular Hemoglobin 31.4 pg (28.0-33.3); Mean Corpuscular Volume 90.8 fL (83.0-100.0); Mean Platelet Volume 10.1 fL (9.4-12.4); Monocytes # 1.2 K/mcL (0.0-1.3); Monocytes % 7.4 %; Neutrophils # 12.2 K/mcL (1.6-8.9); Platelet Count 257 K/mcL (140-400); Red Blood Count 4.14 M/mcL (4.19-5.50); Red Cell Distribution Width 13.7 % (11.5-14.5); Segmented Neutrophils % 74.5 %; White Blood Count 16.4 K/mcL (4.3-11.1)
[2022-03-04 03:45] LABS: Alanine Aminotransferase 13 Units/L (7-52); Albumin 3.1 g/dL (3.5-5.7); Albumin/Globulin Ratio 1.5 (1.1-2.2); Alkaline Phosphatase 54 Units/L (34-104); Aspartate Amino Transferase 15 Units/L (13-39); BUN/Creatinine Ratio 16 (6-26); Bilirubin,Total 0.6 mg/dL (0.3-1.0); Blood Urea Nitrogen 10 mg/dL (8-23); Calcium 8.1 mg/dL (8.6-10.3); Carbon Dioxide 28 mEq/L (23-29); Chloride 100 mEq/L (98-107); Globulin 2.1 g/dL (2.4-3.5); Glucose 132 mg/dL (70-105); Magnesium 1.9 mg/dL (1.6-2.6); Osmolality,Calculated 281 (280-300); Phosphorous 2.9 mg/dL (2.7-4.5); Potassium 3.1 mEq/L (3.5-5.1); Sodium 135 mEq/L (136-145); Total Protein 5.2 g/dL (6.4-8.9); eGFR For African Americans > 60 (> 60); eGFR For Non-African Americans > 60 (> 60)
[2022-03-04] MEDS: Ipratropium/Albuterol Neb 3 ML IH SCH ×5 (03:51→19:42)
[2022-03-04] MEDS ORDERED: Potassium Chloride Elixir 20 MEQ/15 ML UDC PO ONE (05:20)
[2022-03-04] MEDS: *HR* Heparin 5,000 UNIT/ML VIAL SQ SCH ×2 (05:50→17:47)
[2022-03-04] MEDS: Budesonide/Formoterol 160/4.5 1 PUFF INH IH SCH ×2 (07:31→19:43)
[2022-03-04] MEDS: Metoprolol XL (24 HR) Succ 25 MG TAB.ER.24H PO SCH (08:28)
[2022-03-04] MEDS: Sennosides/Docusate Sodium TABLET PO SCH ×2 (09:48→21:28)
[2022-03-04] MEDS ORDERED: Lidocaine -MPF 2% 5 ML VIAL ONE (10:10)
[2022-03-04] MEDS ORDERED: *HR* Rocuronium Bromide 50 MG/5 ML VIAL ONE (10:10)
[2022-03-04] MEDS ORDERED: *HR* Succinylcholine 200 MG/10 ML VIAL IVP ONE (10:10)
[2022-03-04] MEDS ORDERED: *HR* FentaNYL (PF) 100 MCG/2 ML VIAL ONE (10:10)
[2022-03-04] MEDS ORDERED: Lidocaine HCL 4 ML Topical Solution (Laryng-O-Jet Kit Sterile Pak) TP ONE (10:10)
[2022-03-04] MEDS ORDERED: Ondansetron 4 MG/2 ML VIAL ONE (10:10)
[2022-03-04] MEDS ORDERED: *HR* Propofol 200 MG/20 ML VIAL IVP ONE (10:11)
[2022-03-04] MEDS ORDERED: *HR* EPINEPHrine 1 MG/10 ML SYRINGE INTRATRACH PRN (11:05)
[2022-03-04 13:24] LABS: VBG HCO3 29 mEq/L (21-27); VBG PCO2 51 mmHg (41-51); VBG PH 7.36 pH Units (7.32-7.42); VBG PO2 60 mmHg (25-50)
[2022-03-04 13:35] LABS: BUN/Creatinine Ratio 11 (6-26); Blood Urea Nitrogen 7 mg/dL (8-23); Calcium 7.8 mg/dL (8.6-10.3); Carbon Dioxide 29 mEq/L (23-29); Chloride 101 mEq/L (98-107); Glucose 136 mg/dL (70-105); Osmolality,Calculated 278 (280-300); Sodium 134 mEq/L (136-145); eGFR For African Americans > 60 (> 60); eGFR For Non-African Americans > 60 (> 60)
[2022-03-04] MEDS: Aspirin Enteric Coated 81 MG Tablet PO SCH (14:37)
[2022-03-04] MEDS: Acetaminophen 325 MG TABLET PO PRN (14:37)
[2022-03-04] MEDS: Isosorbide MONOnitrate (24 HR) 60 MG TAB.ER.24H PO SCH (14:37)
[2022-03-04] MEDS: Primidone 50 MG TABLET PO SCH ×2 (14:38→21:27)
[2022-03-04] MEDS: cilostazoL 100 MG TABLET PO SCH ×2 (14:38→21:27)
[2022-03-04] MEDS: predniSONE 10 MG TABLET PO SCH (15:23)
[2022-03-04] MEDS: traZODone 50 MG TABLET PO PRN (21:27)
[2022-03-05] MEDS: Ipratropium/Albuterol Neb 3 ML IH SCH ×7 (00:15→23:32)
[2022-03-05 05:30] LABS: VBG Ionized Calcium 1.16 mmol/L (1.15-1.35)
[2022-03-05 05:30] LABS: Basophils % 0.1 %; Eosinophils # 0.2 K/mcL (0.0-0.6); Eosinophils % 1.6 %; Hemoglobin 12.8 g/dL (12.9-16.9); Immature Granulocytes % 0.8 % (0-4); Lymphocytes # 1.5 K/mcL (0.6-4.6); Lymphocytes % 10.4 %; Mean Corpuscular HGB Conc 33.7 g/dL (31.6-35.5); Mean Corpuscular Hemoglobin 31.1 pg (28.0-33.3); Mean Corpuscular Volume 92.5 fL (83.0-100.0); Mean Platelet Volume 10.1 fL (9.4-12.4); Monocytes # 0.9 K/mcL (0.0-1.3); Monocytes % 6.4 %; Neutrophils # 11.8 K/mcL (1.6-8.9); Platelet Count 255 K/mcL (140-400); Red Blood Count 4.11 M/mcL (4.19-5.50); Red Cell Distribution Width 13.9 % (11.5-14.5); Segmented Neutrophils % 80.7 %; White Blood Count 14.7 K/mcL (4.3-11.1)
[2022-03-05] MEDS: *HR* Heparin 5,000 UNIT/ML VIAL SQ SCH ×2 (05:33→17:30)
[2022-03-05 05:48] LABS: Alanine Aminotransferase 14 Units/L (7-52); Albumin 3.1 g/dL (3.5-5.7); Albumin/Globulin Ratio 1.6 (1.1-2.2); Alkaline Phosphatase 52 Units/L (34-104); Aspartate Amino Transferase 14 Units/L (13-39); BUN/Creatinine Ratio 20 (6-26); Bilirubin,Total 0.5 mg/dL (0.3-1.0); Blood Urea Nitrogen 11 mg/dL (8-23); Calcium 8.2 mg/dL (8.6-10.3); Carbon Dioxide 28 mEq/L (23-29); Chloride 99 mEq/L (98-107); Glucose 147 mg/dL (70-105); Magnesium 1.7 mg/dL (1.6-2.6); Osmolality,Calculated 280 (280-300); Phosphorous 2.2 mg/dL (2.7-4.5); Potassium 3.2 mEq/L (3.5-5.1); Sodium 134 mEq/L (136-145); Total Protein 5.1 g/dL (6.4-8.9); eGFR For African Americans > 60 (> 60); eGFR For Non-African Americans > 60 (> 60)
[2022-03-05] MEDS: Budesonide/Formoterol 160/4.5 1 PUFF INH IH SCH ×2 (07:31→20:03)
[2022-03-05] MEDS: Metoprolol XL (24 HR) Succ 25 MG TAB.ER.24H PO SCH (07:42)
[2022-03-05] MEDS: predniSONE 10 MG TABLET PO SCH (07:43)
[2022-03-05] MEDS: Sennosides/Docusate Sodium TABLET PO SCH ×2 (07:43→21:19)
[2022-03-05] MEDS: cilostazoL 100 MG TABLET PO SCH ×2 (07:43→21:19)
[2022-03-05] MEDS: Isosorbide MONOnitrate (24 HR) 60 MG TAB.ER.24H PO SCH (07:43)
[2022-03-05] MEDS: Primidone 50 MG TABLET PO SCH ×2 (07:45→21:19)
[2022-03-05] MEDS: Aspirin Enteric Coated 81 MG Tablet PO SCH (07:49)
[2022-03-05] MEDS ORDERED: Metoprolol XL (24 HR) Succ 25 MG TAB.ER.24H PO ONE (08:18)
[2022-03-05] MEDS: *HR* Metoprolol 5 MG/5 ML VIAL IVP PRN (10:27)
[2022-03-05] MEDS ORDERED: *HR* OxyCODONE Immed Rel 5 MG TABLET PO PRN (10:39)
[2022-03-05] MEDS ORDERED: *HR* HYDROcodone/Acet 5/325 mg TABLET PO PRN (10:39)
[2022-03-05] MEDS ORDERED: *HR* Metoprolol 5 MG/5 ML VIAL IVP PRN (10:41)
[2022-03-06] MEDS: Ipratropium/Albuterol Neb 3 ML IH SCH ×6 (03:27→23:18)
[2022-03-06 05:10] LABS: BUN/Creatinine Ratio 18 (6-26); Blood Urea Nitrogen 13 mg/dL (8-23); Calcium 8.2 mg/dL (8.6-10.3); Carbon Dioxide 29 mEq/L (23-29); Chloride 101 mEq/L (98-107); Glucose 106 mg/dL (70-105); Osmolality,Calculated 285 (280-300); Potassium 3.4 mEq/L (3.5-5.1); Sodium 137 mEq/L (136-145); eGFR For African Americans > 60 (> 60); eGFR For Non-African Americans > 60 (> 60)
[2022-03-06 05:31] LABS: Basophils % 0.2 %; Eosinophils # 0.6 K/mcL (0.0-0.6); Eosinophils % 3.6 %; Hematocrit 36.6 % (37.5-50.1); Immature Granulocytes % 0.9 % (0-4); Lymphocytes % 12.3 %; Mean Corpuscular HGB Conc 32.8 g/dL (31.6-35.5); Mean Corpuscular Hemoglobin 30.5 pg (28.0-33.3); Mean Corpuscular Volume 93.1 fL (83.0-100.0); Mean Platelet Volume 10.6 fL (9.4-12.4); Monocytes # 1.2 K/mcL (0.0-1.3); Monocytes % 7.2 %; Neutrophils # 12.3 K/mcL (1.6-8.9); Platelet Count 299 K/mcL (140-400); Red Blood Count 3.93 M/mcL (4.19-5.50); Red Cell Distribution Width 14.1 % (11.5-14.5); Segmented Neutrophils % 75.8 %; White Blood Count 16.2 K/mcL (4.3-11.1)
[2022-03-06] MEDS: *HR* Heparin 5,000 UNIT/ML VIAL SQ SCH ×2 (05:32→17:27)
[2022-03-06] MEDS ORDERED: Potassium Chloride 40 MEQ/200 ML BAG IVPB PRN (05:52)
[2022-03-06] MEDS: Budesonide/Formoterol 160/4.5 1 PUFF INH IH SCH ×2 (07:49→19:40)
[2022-03-06] MEDS: Primidone 50 MG TABLET PO SCH ×2 (08:59→20:13)
[2022-03-06] MEDS: Metoprolol XL (24 HR) Succ 50 MG TAB.ER.24H PO SCH (08:59)
[2022-03-06] MEDS: predniSONE 5 MG TABLET PO SCH (08:59)
[2022-03-06] MEDS: Aspirin Enteric Coated 81 MG Tablet PO SCH (08:59)
[2022-03-06] MEDS: cilostazoL 100 MG TABLET PO SCH ×2 (08:59→20:13)
[2022-03-06] MEDS: Isosorbide MONOnitrate (24 HR) 60 MG TAB.ER.24H PO SCH (08:59)
[2022-03-06] MEDS: Sennosides/Docusate Sodium TABLET PO SCH ×2 (09:00→19:37)
[2022-03-06 09:31] LABS: Basophils % 0.1 %; Eosinophils # 0.6 K/mcL (0.0-0.6); Eosinophils % 3.8 %; Hemoglobin 12.4 g/dL (12.9-16.9); Immature Granulocytes % 0.7 % (0-4); Lymphocytes # 1.5 K/mcL (0.6-4.6); Lymphocytes % 10.1 %; Mean Corpuscular HGB Conc 33.5 g/dL (31.6-35.5); Mean Corpuscular Hemoglobin 31.2 pg (28.0-33.3); Mean Platelet Volume 10.1 fL (9.4-12.4); Monocytes # 1.1 K/mcL (0.0-1.3); Monocytes % 7.5 %; Neutrophils # 11.5 K/mcL (1.6-8.9); Platelet Count 267 K/mcL (140-400); Red Blood Count 3.98 M/mcL (4.19-5.50); Red Cell Distribution Width 14.3 % (11.5-14.5); Segmented Neutrophils % 77.8 %; White Blood Count 14.8 K/mcL (4.3-11.1)
[2022-03-06 10:07] LABS: BUN/Creatinine Ratio 15 (6-26); Blood Urea Nitrogen 10 mg/dL (8-23); Calcium 8.4 mg/dL (8.6-10.3); Carbon Dioxide 29 mEq/L (23-29); Chloride 101 mEq/L (98-107); Glucose 107 mg/dL (70-105); Osmolality,Calculated 284 (280-300); Potassium 3.3 mEq/L (3.5-5.1); Sodium 137 mEq/L (136-145); eGFR For African Americans > 60 (> 60); eGFR For Non-African Americans > 60 (> 60)
[2022-03-07] MEDS: Ipratropium/Albuterol Neb 3 ML IH SCH ×6 (03:41→23:09)
[2022-03-07] MEDS: *HR* Heparin 5,000 UNIT/ML VIAL SQ SCH ×2 (06:05→17:58)
[2022-03-07 06:21] LABS: Basophils % 0.2 %; Eosinophils # 0.5 K/mcL (0.0-0.6); Eosinophils % 3.7 %; Hematocrit 35.6 % (37.5-50.1); Hemoglobin 11.8 g/dL (12.9-16.9); Immature Granulocytes % 0.6 % (0-4); Lymphocytes # 1.8 K/mcL (0.6-4.6); Lymphocytes % 14.4 %; Mean Corpuscular HGB Conc 33.1 g/dL (31.6-35.5); Mean Corpuscular Hemoglobin 30.7 pg (28.0-33.3); Mean Corpuscular Volume 92.7 fL (83.0-100.0); Mean Platelet Volume 10.1 fL (9.4-12.4); Monocytes # 0.9 K/mcL (0.0-1.3); Monocytes % 7.3 %; Neutrophils # 9.1 K/mcL (1.6-8.9); Platelet Count 260 K/mcL (140-400); Red Blood Count 3.84 M/mcL (4.19-5.50); Red Cell Distribution Width 14.3 % (11.5-14.5); Segmented Neutrophils % 73.8 %; White Blood Count 12.3 K/mcL (4.3-11.1)
[2022-03-07 07:14] LABS: BUN/Creatinine Ratio 16 (6-26); Blood Urea Nitrogen 9 mg/dL (8-23); Calcium 7.9 mg/dL (8.6-10.3); Carbon Dioxide 31 mEq/L (23-29); Chloride 100 mEq/L (98-107); Glucose 94 mg/dL (70-105); Osmolality,Calculated 280 (280-300); Potassium 3.2 mEq/L (3.5-5.1); Sodium 136 mEq/L (136-145); eGFR For African Americans > 60 (> 60); eGFR For Non-African Americans > 60 (> 60)
[2022-03-07] MEDS: Budesonide/Formoterol 160/4.5 1 PUFF INH IH SCH ×2 (08:05→20:22)
[2022-03-07] MEDS: Aspirin Enteric Coated 81 MG Tablet PO SCH (09:00)
[2022-03-07] MEDS: Isosorbide MONOnitrate (24 HR) 60 MG TAB.ER.24H PO SCH (09:02)
[2022-03-07] MEDS: Primidone 50 MG TABLET PO SCH ×2 (09:02→20:35)
[2022-03-07] MEDS: predniSONE 5 MG TABLET PO SCH (09:02)
[2022-03-07] MEDS: Metoprolol XL (24 HR) Succ 50 MG TAB.ER.24H PO SCH (09:08)
[2022-03-07] MEDS: cilostazoL 100 MG TABLET PO SCH ×2 (09:08→20:36)
[2022-03-07] MEDS: Sennosides/Docusate Sodium TABLET PO SCH ×2 (09:11→20:36)
[2022-03-08 03:01] LABS: Hematocrit 33.8 % (37.5-50.1); Hemoglobin 11.4 g/dL (12.9-16.9); Mean Corpuscular HGB Conc 33.7 g/dL (31.6-35.5); Mean Corpuscular Hemoglobin 31.2 pg (28.0-33.3); Mean Corpuscular Volume 92.6 fL (83.0-100.0); Mean Platelet Volume 9.8 fL (9.4-12.4); Platelet Count 276 K/mcL (140-400); Red Blood Count 3.65 M/mcL (4.19-5.50); Red Cell Distribution Width 14.1 % (11.5-14.5)
[2022-03-08 03:26] LABS: BUN/Creatinine Ratio 18 (6-26); Blood Urea Nitrogen 10 mg/dL (8-23); Calcium 8.1 mg/dL (8.6-10.3); Carbon Dioxide 27 mEq/L (23-29); Chloride 103 mEq/L (98-107); Glucose 104 mg/dL (70-105); Osmolality,Calculated 283 (280-300); Potassium 2.9 mEq/L (3.5-5.1); Sodium 137 mEq/L (136-145); eGFR For African Americans > 60 (> 60); eGFR For Non-African Americans > 60 (> 60)
[2022-03-08] MEDS: Ipratropium/Albuterol Neb 3 ML IH SCH ×6 (03:56→23:54)
[2022-03-08] MEDS: *HR* Heparin 5,000 UNIT/ML VIAL SQ SCH ×2 (05:09→17:51)
[2022-03-08] MEDS: Budesonide/Formoterol 160/4.5 1 PUFF INH IH SCH ×2 (07:21→20:15)
[2022-03-08] MEDS: Primidone 50 MG TABLET PO SCH ×2 (08:42→20:37)
[2022-03-08] MEDS: Aspirin Enteric Coated 81 MG Tablet PO SCH (08:42)
[2022-03-08] MEDS: Metoprolol XL (24 HR) Succ 50 MG TAB.ER.24H PO SCH (08:42)
[2022-03-08] MEDS: predniSONE 5 MG TABLET PO SCH (08:43)
[2022-03-08] MEDS: cilostazoL 100 MG TABLET PO SCH ×2 (08:43→20:37)
[2022-03-08] MEDS: Sennosides/Docusate Sodium TABLET PO SCH ×2 (08:43→20:37)
[2022-03-08] MEDS: Isosorbide MONOnitrate (24 HR) 60 MG TAB.ER.24H PO SCH (08:44)
[2022-03-08] MEDS ORDERED: Potassium Chloride Elixir 20 MEQ/15 ML UDC PO ONE (14:36)
[2022-03-08] MEDS: traZODone 50 MG TABLET PO PRN (21:50)
[2022-03-09 02:27] LABS: Hematocrit 39.4 % (37.5-50.1); Mean Corpuscular Hemoglobin 31.1 pg (28.0-33.3); Mean Corpuscular Volume 94.3 fL (83.0-100.0); Mean Platelet Volume 9.8 fL (9.4-12.4); Platelet Count 329 K/mcL (140-400); Red Blood Count 4.18 M/mcL (4.19-5.50); Red Cell Distribution Width 14.5 % (11.5-14.5); White Blood Count 11.2 K/mcL (4.3-11.1)
[2022-03-09 02:46] LABS: BUN/Creatinine Ratio 15 (6-26); Blood Urea Nitrogen 8 mg/dL (8-23); Calcium 8.7 mg/dL (8.6-10.3); Carbon Dioxide 25 mEq/L (23-29); Chloride 104 mEq/L (98-107); Glucose 115 mg/dL (70-105); Magnesium 1.5 mg/dL (1.6-2.6); Osmolality,Calculated 281 (280-300); Potassium 3.3 mEq/L (3.5-5.1); Sodium 136 mEq/L (136-145); eGFR For African Americans > 60 (> 60); eGFR For Non-African Americans > 60 (> 60)
[2022-03-09] MEDS: Ipratropium/Albuterol Neb 3 ML IH SCH ×3 (03:57→11:47)
[2022-03-09] MEDS: *HR* Heparin 5,000 UNIT/ML VIAL SQ SCH (05:04)
[2022-03-09] MEDS: Budesonide/Formoterol 160/4.5 1 PUFF INH IH SCH (07:55)
[2022-03-09 08:40] VITALS: TEMP 97
[2022-03-09 10:39] VITALS: BP 133/90; PULSE 106; O2SAT 95
[2022-03-09] MEDS: Isosorbide MONOnitrate (24 HR) 60 MG TAB.ER.24H PO SCH (11:25)
[2022-03-09] MEDS: cilostazoL 100 MG TABLET PO SCH (11:25)
[2022-03-09] MEDS: Primidone 50 MG TABLET PO SCH (11:25)
[2022-03-09] MEDS: Aspirin Enteric Coated 81 MG Tablet PO SCH (11:25)
[2022-03-09] MEDS: Sennosides/Docusate Sodium TABLET PO SCH (11:25)
[2022-03-09] MEDS: Metoprolol XL (24 HR) Succ 50 MG TAB.ER.24H PO SCH (11:26)
== END 2022-03-09 11:45 | disposition home or self-care (01) | DRG 140 ==
LOC: SAMDAY 06:23 → ICNU 10:45
PROVIDERS: ADMIT Internal Medicine Pulmonary Disease; ATTEND Internal Medicine Pulmonary Disease
PROC: ENDOLBX (2022-02-20 07:45)
PROC: ENDOBRF (2022-03-04 10:30)